=== PATIENT | male | born 1965 | race Caucasian/White ===

== ENCOUNTER 2017-09-14 13:32 | Inpatient (IN) ==
--- NOTE | 2017-09-13 21:18 | Discharge Summary ---
<Alma Pimentel L - Last Filed: 09/13/17 21:15> Date of Encounter: 09/13/17 - Discharge Diagnosis (1) Status post total hip replacement, left Priority: Primary Status: Acute (2) Tobacco use Priority: Secondary Status: Chronic (3) Hyperlipidemia Priority: Secondary Status: Chronic Qualifiers: Hyperlipidemia type: pure hypercholesterolemia Qualified Code(s): E78.00 - Pure hypercholesterolemia, unspecified (4) Avascular necrosis of bones of both hips Priority: Primary Status: Chronic - Discharge Medications Prescriptions: Aluminum Hydroxide 600 mg PO TIDAC 30 Days #450 ml Omeprazole [PriLOSEC] 20 mg PO DAILY #30 cap Sucralfate [Carafate] 1 gm PO BID #30 tablet Sucralfate [Carafate] 10 ml PO QID 30 Days #1 l Home Medications: Gabapentin [Neurontin] 800 mg PO TID 07/15/17 [History] OxyCODONE Immed Rel [Roxicodone 5 MG] 5 mg PO Q6HR PRN #28 tablet 09/13/17 [Rx] Aluminum Hydroxide 600 mg PO TIDAC 30 Days #450 ml 09/18/17 [Rx] Omeprazole [PriLOSEC] 20 mg PO DAILY #30 cap 09/18/17 [Rx] Sucralfate [Carafate] 1 gm PO BID #30 tablet 09/18/17 [Rx] Sucralfate [Carafate] 10 ml PO QID 30 Days #1 l 09/18/17 [Rx] Allergies/Adverse Reactions: 3 Allergy/AdvReac Type Severity Reaction Status Date / Time acetaminophen [From Tylenol] AdvReac Nausea Verified 09/14/17 14:06 naproxen [From Naprosyn] AdvReac Chest Pain Verified 09/14/17 14:06 Primary care physician: PCP NONE - Patient Status Disposition: Transfer SNF Condition: Good - Discharge Instructions Follow Up With: Layla Falk PAC [Physician Vegetable Picker] - 09/25/17 9:45 am Efra Jalloh MD [Partnered Physician] - (PATIENT IS GOING TO [facility] NO PCP NEEDED) Arjun Montes, BRICK SETTER [Advanced Practice Nurse] - 10/05/17 3:05 pm Additional Instructions: Please take all medications as prescribed adhere to soft diet please follow up with your primary care physician with the next one to 2 weeks -- may consider general surgery consultation at recommendation of your primary care physician if your abdominal discomfort does not improve follow-up with gastroenterology within the next 2 to 4 weeks please adhere to physical therapy recommendations including use of walking assistive devices until you're cleared for independent ambulation please report any new recurrent symptoms to your nurse or primary physician please return to the emergency department for further evaluation as needed for symptoms as we have discussed - Hospital Course Hospital course: Mr. Stallings is a 52 year old male - Time Spent with Patient Total time spent providing and/or coordinating discharge services: <Evin Reyez - Last Filed: 09/23/17 08:30> Date of Encounter: 09/23/17 Time of Encounter: 08:29 - Discharge Diagnosis (1) Avascular necrosis of bones of both hips Priority: Primary Status: Chronic (2) Status post total hip replacement, right Priority: Primary Status: Chronic (3) Status post total hip replacement, left Priority: Primary Status: Acute (4) Tobacco use Priority: Secondary Status: Chronic (5) Hyperlipidemia Priority: Secondary Status: Chronic Qualifiers: Hyperlipidemia type: mixed hyperlipidemia Qualified Code(s): E78.2 - Mixed hyperlipidemia (6) Hematemesis with nausea Priority: Primary Status: Acute (7) Alcohol abuse Priority: Secondary Status: Chronic Primary care physician: PCP NONE - Patient Status Overall status at discharge: patient is progressing back to baseline - Hospital Course Hospital course: Mr. Stallings is a 52 year old male status post left total hip replacement Patient with postoperative hematemesis transferred to cardiac care unit undergoing EGD. Patient found to have gastritis hiatal hernia patient received blood on the hospital discharge stable condition patient with a history of alcohol abuse most likely related to his hematemesis.The patient had an uneventful postoperative course. They received antibiotics and physical therapy and were discharged in stable condition. There will follow-up in the office in 2 weeks. - Time Spent with Patient Total time spent providing and/or coordinating discharge services:
[~2017-09-14 13:32] MED LIST: CeFAZolin Premix DUPLEX 2,000 MG/50 ML BAG IVPB SCH
--- NOTE | 2017-09-14 13:48 | Anesthesia Evaluation PreOp ---
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 09/13/17 [Rx] OxyCODONE Immed Rel [Roxicodone 5 MG] 5 mg PO Q6HR PRN #28 tablet 09/13/17 [Rx] 3 Allergy/AdvReac Type Severity Reaction Status Date / Time acetaminophen [From Tylenol] Allergy Nausea Unverified 09/09/17 14:11 naproxen [From Naprosyn] Allergy Chest Pain Unverified 09/09/17 14:11 - Meds/Allergy Pre-op Review Medications Reviewed: Yes Allergies Reviewed: Yes Beta Blockers on Current Med List: No Anesthesia Results - Imaging Additional studies: stress: Impression: Pharmacologic stress ECG is negative for ischemia at level of heart rate achieved. Gated EF = 70%. Medium sized, moderate intensity, fixed inferior perfusion defect. Perfusion is worse on rest imaging and wall motion is normal. These findings are consistent with artifact. Perfusion imaging was negative for ischemia or infarct. Clinical correlation suggested. Anesthesia Exam Height: 73in Weight: 192lbs NPO (# of Hours): 8 - HEENT Pupil (Motor): EOMI Mallampati: II Teeth: Edentulous Oral Opening: Greater than 3 - PROFESSOR OF PHYSICAL EDUCATION LOC: Oriented PROFESSOR OF PHYSICAL EDUCATION Motor: Normal RUE, Normal LUE, Normal RLE, Normal LLE, Normal Face PROFESSOR OF PHYSICAL EDUCATION Sensory: Normal: RUE, LUE, RLE, LLE, Face - Cardiac Rhythm: Regular Murmur: None - Pulmonary Breath Sounds: bilateral Clear Respiratory Effort: Symmetrical Anesthesia Assess/Plan ASA Score: 2 Modified Secor Scale for Level of Consciousness: Cooperative, oriented, and tranquil Anesthetic Plan: General Monitoring Plan: Standard Monitors Recovery Plan: PACU (disucssed GA, agrees to proceed.)
--- NOTE | 2017-09-14 13:51 | History & Physical Report ---
Date of Encounter: 09/14/17 Time of Encounter: 13:50 24 Hour HP Update - Instructions Instructions: If the History and Physical is less than 30 days old and was completed prior to A.M. admission and or procedure and has NOT been updated on calendar day of procedure please complete this update prior to performing procedure. - Update Patient reports changes in Medical Condition: No Changes in examination, assessment, or condition: No Changes in Medication: No Preop tests/diagnostics Reviewed: Yes Surgery Remains Indicated: Yes Consent for Planned Operative Procedure(s) Verified: Yes - Pre-Operative Checklist Preoperative Checklist Indicated: No Prophylactic Antibiotic Ordered: Yes Is VTE Prophylaxis Indicated?: Yes
[2017-09-14] MEDS ORDERED: Albuterol 2.5 MG/3 ML NEBULIZER ONE (13:57)
[2017-09-14] MEDS ORDERED: Lidocaine -MPF 1% 2 ML VIAL ID ONE (14:02)
[2017-09-14] MEDS ORDERED: Albuterol 2.5 MG/3 ML NEBULIZER IH ONE (14:02)
[2017-09-14] MEDS ORDERED: CeFAZolin Syr 2,000MG/20 ML 2,000 MG/20 ML SYRINGE IVPB ONE (14:02)
[2017-09-14] MEDS: Ringers Solution, Lactated 1,000 ML IVC SCH ×2 (14:09→20:14)
[2017-09-14] MEDS ORDERED: Ethanol\\Acetic Acid\\Na Ace\\Ben 1,000 ML IRRIG.SOLN IR ONE (16:45)
[2017-09-14] MEDS ORDERED: *HR* Enoxaparin 30 MG/0.3 ML SYRINGE SQ SCH (18:00)
[2017-09-14] MEDS ORDERED: *HR* Midazolam HCl 2 MG/2 ML VIAL ONE (18:36)
[2017-09-14] MEDS ORDERED: Lidocaine -MPF 4% 5 ML AMPUL ONE (18:36)
[2017-09-14] MEDS ORDERED: *HR* Succinylcholine 200 MG/10 ML VIAL IVP ONE (18:36)
[2017-09-14] MEDS ORDERED: *HR* FentaNYL (PF) 100 MCG/2 ML VIAL ONE ×2 (18:36→18:37)
[2017-09-14] MEDS ORDERED: *HR* Propofol 200 MG/20 ML VIAL IVP ONE (18:36)
[2017-09-14] MEDS ORDERED: Lidocaine -MPF 2% 2 ML VIAL ONE (18:36)
[2017-09-14] MEDS ORDERED: Ondansetron 4 MG/2 ML VIAL IVP PRN ×2 (18:47→21:49)
[2017-09-14] MEDS ORDERED: Propofol 500 MG/50 ML INFUS..BTL ONE (18:53)
[2017-09-14] MEDS ORDERED: Ondansetron 4 MG/2 ML VIAL ONE (18:53)
[2017-09-14] MEDS ORDERED: Dexamethasone 4 MG/ML VIAL ONE (18:53)
[2017-09-14] MEDS ORDERED: *HR* HYDROmorphone 2 MG/ML SYRINGE ONE (18:54)
--- NOTE | 2017-09-14 19:15 | Orthopedic Operative Note ---
Date of procedure: 09/14/17 Pre-op diagnosis: Left hip avascular necrosis Post-op diagnosis: same Procedure: Procedure: Left Total Hip Replacment Estimated blood loss: 400 cc Hardware: Metal and polyethylene replacement. Biomet DM Cup: 60 G7 fin cup Femoral size 14 echo full profile lateralized stem Head: +6 head with Amy Procedural Notes: Degenerative changes grade 4 both acetabulum and femoral head Operative procedure: The patient was brought to the operating room and placed on the operating room table. After general anesthesia was administered the patient was placed in the lateral decubitus position with the operative leg up. All pressure points were padded appropriately and the head was stabilized in the neutral position. The operative extremity was prepped and draped in the sterile surgical fashion patient received IV antibiotic prior to skin incision. A standard posterior approach is made to the operative hip, the incision was made through the skin and subcutaneous tissue hemostasis was obtained with Bovie cautery. Using careful sharp dissection the fascia was identified and incised exposing the external rotators. The external rotators were released off the greater trochanter and tagged with #2 FiberWire suture. The capsule was T'd open and the hip was brought into internal rotation. Patient noted to have grade 4 arthritic changes femoral head. The femoral neck cut was made at the appropriate level. An anterior capsulotomy was performed for the anterior retractor. Soft tissues removed from the acetabulum. Patient noted to have grade 4 arthritic changes acetabulum. Acetabulum was first reamed medially, and then reamed in 15 degrees of anteversion and 45 degrees off the horizontal. It was reamed up to the appropriate size 60 The appropriate-sized 60 acetabular cup was impacted in place in 15 degrees of anteversion and 45 degrees off the horizontal. This had good fit and fixation. The hip was brought back in to internal rotation and prepared with the wooden box maker followed by the canal finder followed by broaching process in 20 degrees anteversion. It was broached up to the appropriate size 14 The femoral implant was impacted in place in 20 degrees of anteversion. Trial reduction found the hip to be stable with 6 head and Amy. The trials were removed and the real implants were impacted in place. The hip was reduced, patient had apparent equal leg lengths. The hip had excellent stability with forward flexion to 90 degrees adduction of 30 degrees and internal rotation of 60 degrees. The hip had no shuck. The hips after 2 minutes with a Betadine saline solution. It was irrigated out with 2 L of pulse irrigation. The hip was closed by the PA. Fascia was closed with a running #2 PDS suture. The deep tissue was irrigated and closed deep with #1 PDS suture superficially with 0 PDS suture and skin was closed with Dermabond and skin abhay. The patient was placed in a sterile dressing and abduction pillow. The patient was extubated and transferred to the recovery room in stable condition. Anesthesia: GETA Surgeon: Evin Reyez Condition: stable Disposition: PACU
[2017-09-14] MEDS: *HR* HYDROmorphone (PF) 1 MG/ML SYRINGE IVP PRN ×5 (19:55→23:33)
[2017-09-14 20:35] LABS: Hematocrit 45.9 % (37.5-50.1); Hemoglobin 15.2 g/dL (12.9-16.9)
[2017-09-14] MEDS ORDERED: Gabapentin 300 MG CAPSULE PO STA (20:42)
[2017-09-14] MEDS ORDERED: cloNIDine HCl 0.1 MG TABLET PO ONE (20:42)
[2017-09-14] MEDS ORDERED: Gabapentin 300 MG CAPSULE ONE (20:49)
[2017-09-14] MEDS ORDERED: cloNIDine HCl 0.1 MG TABLET ONE (20:49)
[2017-09-14] MEDS ORDERED: *HR* OxyCODONE Immed Rel 5 MG TABLET PO PRN (21:49)
[2017-09-14] MEDS ORDERED: Sennosides 8.6 MG TABLET PO PRN (21:49)
[2017-09-14] MEDS ORDERED: Ringers Solution, Lactated 1,000 ML IVC SCH (21:49)
[2017-09-14] MEDS ORDERED: Naloxone 0.4 MG/ML INJ IVP PRN (21:49)
[2017-09-14] MEDS ORDERED: Temazepam 15 MG CAPSULE PO PRN (21:49)
[2017-09-14] MEDS ORDERED: CeFAZolin Premix DUPLEX 2,000 MG/50 ML BAG IVPB SCH (21:49)
--- NOTE | 2017-09-14 22:10 | Anesthesia Evaluation Post Op ---
Date of Encounter: 09/14/17 Time of Encounter: 21:00 - Vital Signs Vital Signs: Vital Signs/O2 Sat/Glucose, Most Current Temp Pulse Resp BP Pulse Ox 09/14/17 21:01 98.2 F 98 14 118/84 92 09/14/17 20:51 86 14 117/81 91 09/14/17 20:41 98 F 89 14 128/85 92 09/14/17 20:31 92 14 121/88 91 09/14/17 20:25 100 14 109/79 91 09/14/17 20:11 98.2 F 101 16 112/90 91 09/14/17 20:01 100 12 111/86 92 09/14/17 19:51 110 18 107/97 95 09/14/17 19:41 98.2 F 97 16 119/84 97 - Lungs Lungs: Clear Ascult./Percussion - Airway Airway: Non-obstructed - Cardiovascular Baseline Rhythm - Mental Status Mental Status: Alert & Oriented, Answers Appropriately - Pain Pain Scale: 7 Pain Scale used: Numeric (1 - 10) - Nausea Vomiting Nausea Vomiting: Not Present - Hydration Hydration: Tolerates oral liquids, Has not voided - Discharge PostOp Status: Transfer Patient to floor Anes Supervising Prov Stmt: Pt seen/evaluated, VSS and pt has met criteria for discharge to home. - MD Jairo
[2017-09-14] MEDS: *HR* OxyCODONE Immed Rel 5 MG TABLET PO PRN (22:31)
[2017-09-14] MEDS: Ascorbic Acid 500 MG TABLET PO SCH (22:35)
[2017-09-14] MEDS: Gabapentin 400 MG CAPSULE PO SCH (22:45)
[2017-09-14] MEDS: MOM Conc 10 ML UD.LIQ PO PRN (22:49)
[2017-09-15] MEDS: CeFAZolin Premix DUPLEX 2,000 MG/50 ML BAG IVPB SCH ×2 (00:37→07:42)
[2017-09-15] MEDS: *HR* HYDROmorphone (PF) 1 MG/ML SYRINGE IVP PRN ×6 (01:33→20:24)
[2017-09-15] MEDS: *HR* OxyCODONE Immed Rel 5 MG TABLET PO PRN ×2 (02:42→06:58)
[2017-09-15] MEDS: Ketorolac 30 MG/ML VIAL IVP SCH ×2 (04:57→12:43)
[2017-09-15] MEDS: *HR* Enoxaparin 30 MG/0.3 ML SYRINGE SQ SCH ×2 (05:01→16:44)
--- NOTE | 2017-09-15 06:37 | Orthopedics Progress Note ---
Date of Encounter: 09/15/17 Time of Encounter: 06:35 - Assessment and Plan (1) Avascular necrosis of bones of both hips Current Visit: No Status: Chronic (2) Status post total hip replacement, right Current Visit: No Status: Chronic (3) Status post total hip replacement, left Current Visit: No Status: Acute (4) Tobacco use Current Visit: No Status: Chronic (5) Hyperlipidemia Current Visit: No Status: Chronic Qualifiers: Hyperlipidemia type: pure hypercholesterolemia Qualified Code(s): E78.00 - Pure hypercholesterolemia, unspecified; E78.0 - Pure hypercholesterolemia Subjective Interval history: Patient was seen this morning and complains of severe pain left leg left hip Afebrile vital signs stable. Operative extremity: Neurovascularly seems to be intact Patient says he cannot move toes but does move them without pain tension. Dressing clean dry and intact Calves nontender Assessment and plan: Continue with postoperative care Will add Ativanas well as the aforementioned Toradol to try to alleviate discomfort Objective Vital signs: Vital Signs Temp Pulse Resp BP Pulse Ox 09/15/17 03:19 97.4 F L 75 18 147/92 92 09/15/17 00:43 98.3 F 88 109/83 93 09/15/17 00:05 97.4 F L 80 17 108/76 92 09/14/17 23:35 98.4 F 81 14 112/78 93 09/14/17 22:41 98.4 F 82 14 124/88 96 09/14/17 22:15 98.3 F 126 14 126/87 96 09/14/17 21:36 92 09/14/17 21:33 98.4 F 82 14 114/84 92 09/14/17 21:01 98.2 F 98 14 118/84 92 09/14/17 20:51 86 14 117/81 91 09/14/17 20:41 98 F 89 14 128/85 92 09/14/17 20:31 92 14 121/88 91 09/14/17 20:25 100 14 109/79 91 09/14/17 20:11 98.2 F 101 16 112/90 91 09/14/17 20:01 100 12 111/86 92 09/14/17 19:51 110 18 107/97 95 09/14/17 19:41 98.2 F 97 16 119/84 97 09/14/17 14:04 97.5 F L 102 18 130/90 96 Intake and Output 09/14/17 09/14/17 09/15/17 15:59 23:59 07:59 Intake Total 1999 / 1999 50 / 50 Output Total 400 / 400 Balance 1600 / 1600 50 / 50 Intake: IV Fluids 1000 / 1000 50 / 50 Lactated Ringers 1,000 ML @ 25 1000 / 1000 mls/hr IVC .Q24H [facility] Rx#: [id number] Ancef Premix DUPLEX 2,000 mg In 50 / 50 50 ml @ 100 mls/hr IVPB Q8H [facility] Rx#:[id number] Oral 1000 / 1000 Output: Estimated Blood Loss 400 / 400 Other: Weight 81.647 kg - Labs CBC & BMP: 09/14/17 20:28 - VTE Documentation of Mechanical Device: Venous foot pump, device Consult Discharge Plan - Plan Referrals: NONE,PCP [Primary Care Provider] -
[2017-09-15] MEDS: *HR* LORazepam 2 MG/ML VIAL IVP PRN ×2 (06:51→21:21)
[2017-09-15 07:38] LABS: Hematocrit 40.1 % (37.5-50.1)
[2017-09-15] MEDS: Ascorbic Acid 500 MG TABLET PO SCH ×3 (07:43→16:49)
[2017-09-15] MEDS: Multivit/Ca/Min/Fe/FA 1 TAB TABLET PO SCH (07:43)
[2017-09-15] MEDS: Gabapentin 400 MG CAPSULE PO SCH ×4 (07:43→20:12)
[2017-09-15 07:45] LABS: Hemoglobin 13.4 g/dL (12.9-16.9)
[2017-09-15 07:48] LABS: BUN/Creatinine Ratio 13 (6-26); Blood Urea Nitrogen 10 mg/dL (8-26); Calcium 8.8 mg/dL (8.6-10.8); Carbon Dioxide 21 mEq/L (19-29); Chloride 93 mEq/L (98-109); Glucose 166 mg/dL (70-99); Osmolality,Calculated 267 (280-300); Potassium 3.9 mEq/L (3.5-4.5); Sodium 127 mEq/L (136-145); eGFR For African Americans > 60 (> 60); eGFR For Non-African Americans > 60 (> 60)
[2017-09-15] MEDS: *HR* Promethazine 25 MG/ML VIAL IVP PRN ×2 (11:09→17:46)
--- NOTE | 2017-09-15 11:37 | Physician Discharge Referral ---
ExtendedCare Referral Info Transfer To: [facility] Provider in Charge: Provider in Charge after Transfer: PCP Institutional Level of Care: Skilled - Diagnosis (1) Avascular necrosis of bones of both hips Priority: Primary Status: Chronic (2) Status post total hip replacement, left Priority: Primary Status: Acute (3) Tobacco use Priority: Secondary Status: Chronic (4) Hyperlipidemia Priority: Secondary Status: Chronic Expected Duration of Placement: < 30 days Prognosis: Good Aware of Diagnosis: Patient Aware of Prognosis: Patient - Transfer Medications Home Medications: Gabapentin [Neurontin] 800 mg PO TID 07/15/17 [History] Aspirin Enteric Coated [Aspirin EC] 325 mg PO DAILY #21 tablet. 09/13/17 [Rx] OxyCODONE Immed Rel [Roxicodone 5 MG] 5 mg PO Q6HR PRN #28 tablet 09/13/17 [Rx] Allergies/Adverse Reactions: 3 Allergy/AdvReac Type Severity Reaction Status Date / Time acetaminophen [From Tylenol] AdvReac Nausea Verified 09/14/17 14:06 naproxen [From Naprosyn] AdvReac Chest Pain Verified 09/14/17 14:06 - Respiratory Orders None Smoking Cessation: Smoking cessation has been advised. For more information, call the [employer] Tobacco Quit Line at 5-170-SDXJ-NOW. - Ancillary Orders May use pressure relief devices daily prn, May go on FIONA w/family/respon constitution party w /meds at nurse discretion PRN - Mobility Orders Chair, Ambulate - Rehabiliation Orders Rehab Potential: Good Rehab Orders: ROM Exercises, Evaluation for Physical Therapy, Evaluation for Occupational Therapy - Treatments List/Other: LEft THR Opsite dressing, leave intact until first post-operative visit. If dressing becomes >50% saturated, contact office, remove dressing and place appropriate dressing in its place. Do not allow for dressing to get wet. Zipline dressing in place, plan to remove at post-operative day #14-16. Total Joint Precautions x 6 weeks - Hip precautions Apply cold therapy wrap 3-6x/day for 20 minutes at a time. Encourage ambulation throughout the day Use Incentive spirometer 10x/hour. Elevate affected extremity above heart as tolerated. Brace: Wear hip abduction brace at night x 6 weeks. - Diet Orders Regular CERTIFICATION: I certify that the transfer of the above named patient to an Extended Care Facility is necessary for the continuing treatment of the diagnosis listed. The above information is true and accurate reflection of patient's current condition. Confidential - Redisclosure prohibited without a patient's written consent.
[2017-09-15] MEDS ORDERED: Bismuth Subsalicylate 120 ML ORAL SUSPENSION PO ONE (15:36)
[2017-09-15] MEDS ORDERED: Bismuth Subsalicylate 120 ML ORAL SUSPENSION PO PRN (15:48)
--- NOTE | 2017-09-15 16:01 | Event Note ---
Date of Encounter: 09/15/17 Time of Encounter: 13:15 POD#.1 Left THR 09/15/17 : Patient seen at bedside. Sleeping Pain control: per report - not controlled this morning - on Toradol, Flexeril - Added Lidoderm patch Refusing to participate in PT due to pain. Complains of inability to move Left Foot; he had similar complaints after Right THR 07/2017, with resolution of problem POD#2 - Will continue to monitor. NV intact All questions and concerns addressed. Educated on use of incentive spirometer, ambulation, and hydration. Patient educated on post-operative restrictions and care. D/C plan: ECF, continuity placed. 1545 - Nurse reported 300mL dark brown emesis, patient denied ABD pain or history of GI bleed. D/C Toradol Start Pepto Bismuth PRN Start Famotidine 20mg daily Will monitor, consult hospitalist if this continues.
--- NOTE | 2017-09-15 18:57 | Internal Medicine Consult Note ---
Date of Encounter: 09/15/17 Time of Encounter: 17:45 - Assessment and Plan (1) Hematemesis with nausea Current Visit: Yes Status: Acute Assessment and plan: Pt denies history of previous GI bleed. Start PPI. Check H/H. NPO. (2) Tobacco use Current Visit: No Status: Chronic Assessment and plan: Cessation counselling. (3) Hyperlipidemia Current Visit: No Status: Chronic Qualifiers: Hyperlipidemia type: mixed hyperlipidemia Qualified Code(s): E78.2 - Mixed hyperlipidemia (4) Avascular necrosis of bones of both hips Current Visit: No Status: Chronic (5) Status post total hip replacement, right Current Visit: No Status: Chronic (6) Status post total hip replacement, left Current Visit: No Status: Acute Internal Medicine - CN: HPI - Data of Consult Patient: new to practice Consult date: 09/15/17 Requesting Physician: Evin Reyez MD - Consult Narrative Reason for consult: UGI bleed History of present illness: Mr. Stallings is a 52 year old male here for total joint replacement developed acute nausea with coffee ground emesis this afternoon. Pt denies history of previous GI bleed. Denies alcohol use. Currently has pain in his upper abdomen behind sternum. No fever or chills. Has been on Toradol and Lovenox since surgery. He has had significant nausea as well and just received phenergan. He is high risk at this time due to risk for significant GI bleeding. Past Med Surg Social Fam HX - Past Medical History Source: patient, old records reviewed Medical history: other Psychiatric history: prior suicide attempt - Past Surgical History Surgical History: orthopedic, other, sinus surgery, other - Social History Smoking Status: Current every day smoker Packs per day: 1 1/2 Smokeless Tobacco Status: No Alcohol use: occasionally Drug use: none - Family History Mother Living Status: Still Living - Constitutional Constitutional: fatigue, malaise - Cardiovascular Cardiovascular ROS IM: other Additional comments: tachycardic - Respiratory Respiratory: no dyspnea, no dyspnea on exertion - Gastrointestinal Gastrointestinal: abdominal pain, coffee ground emesis, heartburn, no diarrhea, no melena - Genitourinary Genitourinary ROS male: no dysuria, no urinary frequency, no urinary hesitancy - Musculoskeletal Musculoskeletal ROS IM: arthralgias - Integumentary Integumentary IM: no erythema, no rash - Neurological Neurological ROS: no abnormal gait, no numbness, no vertigo - Endocrine Endocrine IM: no cold intolerance, no heat intolerance - Hematologic/Lymphatic Hematologic/Lymphatic: as per HPI - Allergic/Immunologic Allergic/Immunologic: no itchy eyes, no wheezing Internal Medicine - CN: Meds Gabapentin [Neurontin] 800 mg PO TID 07/15/17 [History] Aspirin Enteric Coated [Aspirin EC] 325 mg PO DAILY #21 tablet. 09/13/17 [Rx] OxyCODONE Immed Rel [Roxicodone 5 MG] 5 mg PO Q6HR PRN #28 tablet 09/13/17 [Rx] 3 Allergy/AdvReac Type Severity Reaction Status Date / Time acetaminophen [From Tylenol] AdvReac Nausea Verified 09/14/17 14:06 naproxen [From Naprosyn] AdvReac Chest Pain Verified 09/14/17 14:06 Internal Medicine - CN: Exam - Constitutional Vitals: Temp Pulse Resp BP Pulse Ox 100.2 F H 120 16 123/87 95 09/15/17 18:00 09/15/17 18:00 09/15/17 18:00 09/15/17 18:00 09/15/17 18:00 General appearance IM: Present: cooperative, A&O X 3 - Head Head exam: Present: atraumatic, normocephalic - Eye Eye exam: Present: EOMI, PERRL, conjuntiva pink - ENT ENT exam: Present: mucous membranes dry - Neck Neck exam general surgery: Absent: lymphadenopathy, thyromegaly - Respiratory Respiratory exam: Present: CTAB. Absent: rhonchi, wheezes - Cardiovascular Cardiovascular exam IM: Present: tachycardia. Absent: irregular rhythm, systolic murmur - GI/Abdominal GI/Abdominal exam IM: Present: normal bowel sounds, soft, tenderness - Extremities Exam Extremities exam IM: Present: tenderness, warm - Neurological Exam Neurological exam: Present: alert, oriented X3, no focal deficits - Psychiatric Psychiatric exam: Present: flat affect - Skin Skin exam IM: Present: dry, warm. Absent: rash Internal Medicine - CN: Reslt - Labs CBC & Chem 7: 09/15/17 06:48 09/15/17 06:48 Labs: Short CBC 09/14/17 09/15/17 Range/Units 20:28 06:48 Hgb 15.2 13.4 D (12.9-16.9) g/dL Hct 45.9 40.1 (37.5-50.1) % BMP 09/15/17 06:48 Sodium 127 L Potassium 3.9 Chloride 93 L Carbon Dioxide 21 BUN 10 Creatinine 0.77 Glucose 166 H Calcium 8.8 - Impressions Impressions Hip X-Ray 09/14/17 00:01 IMPRESSION: Expected postsurgical changes of total left hip arthroplasty. No evidence of hardware complication. D/ / Trey Martin / Trey Martin Interpreting Provider: Trey Martin Consult Discharge Plan - Plan Referrals: NONE,PCP [Primary Care Provider] -
[2017-09-15 20:09] LABS: Hematocrit 32.2 % (37.5-50.1)
[2017-09-15] MEDS: 0.9 % Sodium Chloride 1,000 ML IVC SCH (20:09)
[2017-09-15] MEDS: Famotidine 20 MG TABLET PO SCH (20:12)
[2017-09-15 20:14] LABS: Hemoglobin 10.9 g/dL (12.9-16.9)
[2017-09-15] MEDS: Pantoprazole 80 MG in 0.9 % Sodium Chloride 250 ML IVC SCH (20:30)
[2017-09-16] MEDS: MOM Conc 10 ML UD.LIQ PO PRN (02:00)
[2017-09-16] MEDS: *HR* Promethazine 25 MG/ML VIAL IVP PRN (02:00)
[2017-09-16] MEDS: *HR* HYDROmorphone (PF) 1 MG/ML SYRINGE IVP PRN ×3 (06:08→19:48)
[2017-09-16 06:24] LABS: Hematocrit 28.2 % (37.5-50.1); Hemoglobin 9.6 g/dL (12.9-16.9)
[2017-09-16 06:33] LABS: BUN/Creatinine Ratio 21 (6-26); Blood Urea Nitrogen 16 mg/dL (8-26); Calcium 8.1 mg/dL (8.6-10.8); Carbon Dioxide 26 mEq/L (19-29); Chloride 98 mEq/L (98-109); Glucose 100 mg/dL (70-99); Osmolality,Calculated 269 (280-300); Potassium 3.9 mEq/L (3.5-4.5); Sodium 129 mEq/L (136-145); eGFR For African Americans > 60 (> 60); eGFR For Non-African Americans > 60 (> 60)
--- NOTE | 2017-09-16 07:59 | Orthopedics Progress Note ---
Date of Encounter: 09/16/17 Time of Encounter: 07:58 - Assessment and Plan (1) Avascular necrosis of bones of both hips Current Visit: No Status: Chronic (2) Status post total hip replacement, right Current Visit: No Status: Chronic (3) Status post total hip replacement, left Current Visit: No Status: Acute (4) Tobacco use Current Visit: No Status: Chronic (5) Hyperlipidemia Current Visit: No Status: Chronic Qualifiers: Hyperlipidemia type: mixed hyperlipidemia Qualified Code(s): E78.2 - Mixed hyperlipidemia (6) Hematemesis with nausea Current Visit: Yes Status: Acute Subjective Interval history: Patient was seen this morning resting comfortably Afebrile vital signs stable. Operative extremity: Neurovascularly Dressing clean dry and intact Calves nontender Assessment and plan: Continue with postoperative care in CCU for hematemesis, awaiting EGD hemoglobin 9.5 Objective Vital signs: Vital Signs Temp Pulse Resp BP Pulse Ox 09/16/17 06:56 99.0 F 115 18 101/63 93 09/16/17 05:05 98.3 F 09/16/17 03:19 100.4 F H 118 19 113/68 90 09/15/17 23:46 99.5 F 111 16 112/69 91 09/15/17 21:25 98.8 F 112 16 110/91 90 09/15/17 20:26 115/77 09/15/17 19:12 98.4 F 121 19 98/70 94 09/15/17 18:00 100.2 F H 120 16 123/87 95 09/15/17 13:50 99.7 F H 105 16 108/75 92 Intake and Output 09/15/17 09/15/17 09/16/17 15:59 23:59 07:59 Intake Total 100 / 100 Output Total 300 / 300 970 / 970 1330 / 1330 Balance -300 / -300 -870 / -870 -1330 / -1330 Intake: Oral 100 / 100 Output: Urine 520 / 520 1330 / 1330 Emesis 300 / 300 450 / 450 Other: # Voids 1 Weight 82.3 kg Patient Weight 09/16/17 23:59 Weight 82.3 kg - Labs CBC & BMP: 09/16/17 06:06 09/16/17 06:06 Labs: Abnormal lab results Hgb 9.6 g/dL (12.9-16.9) L 09/16/17 06:06 Hct 28.2 % (37.5-50.1) L 09/16/17 06:06 Sodium 129 mEq/L (136-145) L 09/16/17 06:06 Glucose 100 mg/dL (70-99) H 09/16/17 06:06 Calculated Osmolality 269 (280-300) L 09/16/17 06:06 Calcium 8.1 mg/dL (8.6-10.8) L 09/16/17 06:06 - VTE Documentation of Mechanical Device: Venous foot pump, device Consult Discharge Plan - Plan Referrals: NONE,PCP [Primary Care Provider] -
[2017-09-16] MEDS ORDERED: *HR* LORazepam 2 MG/ML VIAL IVP PRN ×3 (08:15)
[2017-09-16] MEDS: Gabapentin 400 MG CAPSULE PO SCH ×3 (08:35→19:48)
[2017-09-16] MEDS: Ascorbic Acid 500 MG TABLET PO SCH ×2 (08:35→17:08)
[2017-09-16] MEDS: Multivit/Ca/Min/Fe/FA 1 TAB TABLET PO SCH (08:36)
[2017-09-16] MEDS: Famotidine 20 MG TABLET PO SCH (08:36)
--- NOTE | 2017-09-16 10:52 | Gastroenterology Consult Note ---
<JyotiArjun Mccarthy - Last Filed: 09/16/17 10:50> Date of Encounter: 09/16/17 Time of Encounter: 10:20 - Assessment and plan (1) Anemia Current Visit: Yes Status: Acute Assessment and plan: Hgb on admission was 15.2 and today Hgb 9.6. Continue to monitor CBC and transfuse PRBC as needed. Plan for EGD today, keep pt NPO. Qualifiers: Anemia type: unspecified type Qualified Code(s): D64.9 - Anemia, unspecified (2) Hematemesis with nausea Current Visit: Yes Status: Acute Assessment and plan: Hgb 9.6 today. Plan for EGD today to r/o esophagitis, gastritis, duodenitis, PUD , MW tear, varices, or AVM. Keep pt NPO. Continue PPI drip for now. - Time Spent With Patient Total time spent is greater than 50% in coordination of care (as documented) at patient's floor/unit and/or counseling patient: GI History of Present Illness - Data of Consult Patient: new to practice Consult date: 09/16/17 Requesting Physician: Leland Friedman MD - Consult Narrative History of present illness: Mr. Stallings is a 52 year old male who presented for total joint replacement. Following surgery he developed nausea and coffee ground emesis. He denies any history of GI bleeding. Hgb on admission was 15.2 and today Hgb 9.6. He reports occasional reflux symptoms, and states he uses baking soda and water to control his symptoms. He denies any alcohol use. He denies fever, chills, chest pain, abdominal pain, melena, or hematochezia. He was started on PPI drip. Procedures: None NSAIDs: ASA Anticoagulation: None Past Med Surg Social Fam HX - Past Medical History Medical history: other Psychiatric history: prior suicide attempt - Past Surgical History Surgical History: orthopedic, other, sinus surgery, other - Social History Smoking Status: Current every day smoker Packs per day: 1 1/2 Smokeless Tobacco Status: No Alcohol use: occasionally Drug use: none - Family History Mother Living Status: Still Living - Gastrointestinal Gastrointestinal: Present: as per HPI - Constitutional Constitutional: as per HPI - EENT Eyes: as per HPI Ears: Present: as per HPI Nose, mouth and throat: Present: as per HPI - Cardiovascular Cardiovascular ROS: Present: as per HPI - Respiratory Respiratory IM: Present: as per HPI - Genitourinary Genitourinary: Absent: change in color, Urinary frequency - Neurological ROS Neurological GI: Present: as per HPI - Hematologic/Lymphatic Hematologic/Lymphatic pediatric: Present: as per HPI - Musculoskeletal Musculoskeletal ROS GI: Present: as per HPI - Integumentary Integumentary GI: Present: as per HPI - Psychiatric ROS Psychiatric GI: Present: as per HPI - Endocrine Endocrine IM: Present: as per HPI - Constitutional Vitals: Temp Pulse Resp BP Pulse Ox 99.0 F 111 18 101/63 93 09/16/17 06:56 09/16/17 08:12 09/16/17 06:56 09/16/17 06:56 09/16/17 06:56 General appearance: Present: cooperative, A&O X 3, no acute distress, answers questions appropriately - Head Head exam: Present: atraumatic, normocephalic - Eye Eye exam: Present: normal appearance, sclera anicteric - ENT ENT exam: Present: mucous membranes dry - Neck Neck exam general surgery: Present: normal inspection, trachea midline - Respiratory Respiratory exam: Present: CTAB. Absent: rales, rhonchi - Cardiovascular Cardiovascular exam: Present: RRR, +S1, +S2 - GI/Abdominal GI/Abdominal exam: Present: soft, no peritoneal signs. Absent: distended, firm , guarding, tenderness - Rectal Rectal exam: Present: deferred - Extremities Exam Extremities exam: Present: warm - Neurological Exam Neurological exam: Present: no focal deficits - Psychiatric Psychiatric exam: Present: normal affect, normal mood - Skin Skin exam: Present: dry, intact, normal color, warm Results - Labs CBC & Chem 7: 09/16/17 06:06 09/16/17 06:06 Labs: Last Result Calcium 8.1 mg/dL (8.6-10.8) L 09/16/17 06:06 Entire Visit Hgb 9.6 g/dL (12.9-16.9) L 09/16/17 06:06 Hct 28.2 % (37.5-50.1) L 09/16/17 06:06 Consult Discharge Plan - Plan Referrals: Layla Falk, PAC [Physician Senior Manager [facility]] - 09/25/17 9:45 am Efra Jalloh MD [Partnered Physician] - (PATIENT IS GOING TO [facility] NO PCP NEEDED) Audi Tafoya MD [Partnered Physician] - (SENT WEB REQUEST ON 09-16-17 @ 1700 ) <Audi Tafoya - Last Filed: 09/16/17 14:08> Date of Encounter: 09/16/17 Time of Encounter: 13:20 - Time Spent With Patient Total time spent is greater than 50% in coordination of care (as documented) at patient's floor/unit and/or counseling patient: GI History of Present Illness - Data of Consult Requesting Physician: Leland Friedman MD - Consult Narrative History of present illness: Mr. Stallings is a 52 year old male - Constitutional Vitals: Temp Pulse Resp BP Pulse Ox 100.1 F H 106 18 102/56 93 09/16/17 12:49 09/16/17 12:49 09/16/17 12:49 09/16/17 12:49 09/16/17 12:49 Results - Labs CBC & Chem 7: 09/16/17 06:06 09/16/17 06:06 Labs: Last Result Calcium 8.1 mg/dL (8.6-10.8) L 09/16/17 06:06 Entire Visit Hgb 9.6 g/dL (12.9-16.9) L 09/16/17 06:06 Hct 28.2 % (37.5-50.1) L 09/16/17 06:06 - Attending Attestation I examined this patient and my medical decision-making was reviewed with the Resident Physician. I agree with the documented findings, disposition and treatment plan as described except to the extent set forth below. Patient with a recent left hip surgery now with hematemesis and the anemia. EGD to rule out peptic ulcer disease versus esophagitis/gastritis. Follow H&H
--- NOTE | 2017-09-16 12:31 | Event Note ---
Date of Encounter: 09/16/17 Time of Encounter: 12:55 POD#2 Left THR 09/15/17 Patient NOT seen secondary to patient away for testing. Pain control: NSAIDs d/c secondary to presumptive GI bleed - consult performed - awaiting EGD results.
--- NOTE | 2017-09-16 12:55 | Anesthesia Evaluation PreOp ---
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 09/13/17 [Rx] OxyCODONE Immed Rel [Roxicodone 5 MG] 5 mg PO Q6HR PRN #28 tablet 09/13/17 [Rx] 3 Allergy/AdvReac Type Severity Reaction Status Date / Time acetaminophen [From Tylenol] AdvReac Nausea Verified 09/14/17 14:06 naproxen [From Naprosyn] AdvReac Chest Pain Verified 09/14/17 14:06 - Meds/Allergy Pre-op Review Medications Reviewed: Yes Allergies Reviewed: Yes Beta Blockers on Current Med List: No Anesthesia Results - Labs 09/16/17 06:06 09/16/17 06:06 - Imaging EKG: report reviewed (SR) Anesthesia Exam O2 Sat Weight 82.3 kg O2 Sat by Pulse Oximetry 93 O2 Sat by Pulse Oximetry 93 O2 Sat by Pulse Oximetry 93 O2 Sat by Pulse Oximetry 93 O2 Sat by Pulse Oximetry 90 O2 Sat by Pulse Oximetry 91 O2 Sat by Pulse Oximetry 90 O2 Sat by Pulse Oximetry 94 O2 Sat by Pulse Oximetry 95 O2 Sat by Pulse Oximetry 92 Vital Signs Temp Pulse Resp BP Pulse Ox 97.5 F L 102 18 130/90 96 09/14/17 14:04 09/14/17 14:04 09/14/17 14:04 09/14/17 14:04 09/14/17 14:04 Vital Signs/O2 Sat, Most Current Temp Pulse Resp BP Pulse Ox 100.1 F H 106 18 102/56 93 09/16/17 12:49 09/16/17 12:49 09/16/17 12:49 09/16/17 12:49 09/16/17 12:49 Height: 6'1'' Weight: 181# NPO (# of Hours): > 8 hrs Pain Scale: 0 Pain Scale Used: Numeric (1 - 10) - HEENT Pupil (Motor): Pupils equal, EOMI Mallampati: II Teeth: Edentulous Oral Opening: Greater than 3 - RECRUIT INSTRUCTOR LOC: Oriented RECRUIT INSTRUCTOR Motor: Normal RUE, Normal LUE, Normal RLE, Normal LLE, Normal Face RECRUIT INSTRUCTOR Sensory: Normal: RUE, LUE, RLE, LLE, Face - Cardiac Rhythm: Regular Murmur: None JVD: No Carotid Bruit: No - Pulmonary Breath Sounds: bilateral Clear Respiratory Effort: Symmetrical Anesthesia Assess/Plan ASA Score: 3
[2017-09-16] MEDS ORDERED: 0.9 % Sodium Chloride 500 ML IVC SCH (14:00)
[2017-09-16] MEDS ORDERED: Ringers Solution, Lactated 500 ML IVC SCH (14:00)
[2017-09-16] MEDS: 0.9 % Sodium Chloride 1,000 ML IVC SCH ×3 (14:39→22:00)
[2017-09-16 15:19] LABS: Hematocrit 24.4 % (37.5-50.1); Hemoglobin 8.1 g/dL (12.9-16.9)
--- NOTE | 2017-09-16 15:52 | Electrocardiograph Report ---
[address] [address] Test Date: 2017-09-15 Pat Name: Jaren Stallings Department: 114 Room: 2N01 Gender: M Outreach Analyst: : 1965 Requested By: Leland Friedman Order Number: [id number] Reading MD: Diaz Harmon MD Measurements Intervals [place] Rate: 121 P: 17 ID: [id number] QRS: 15 QRSD: 91 T: 43 QT: 302 QTc: 374 Interpretive Statements SINUS TACHYCARDIA WITH SHORT ID INTERVAL Electronically Signed On 09-16-2017 15:50:29 EST by Diaz Harmon MD
[2017-09-16] MEDS ORDERED: Lidocaine -MPF 2% 5 ML VIAL INFILT ONE (16:19)
[2017-09-16] MEDS ORDERED: *HR* Propofol 200 MG/20 ML VIAL IVP ONE (16:19)
--- NOTE | 2017-09-16 16:53 | Internal Med Progress Note ---
<Brian Arteaga - Last Filed: 09/16/17 17:27> Date of Encounter: 09/16/17 Time of Encounter: 10:30 - Assessment and plan (1) Status post total hip replacement, left Current Visit: No Status: Acute Assessment and plan: Ortho following patient; will contact ortho team if pertinent concerns arise Cont follow with ortho; defer relevant management to their service (2) Hematemesis with nausea Current Visit: Yes Status: Acute Assessment and plan: GI consulted; EGD performed today Apparently 2/2 esophagitis; await report and recommendations cont follow with GI during IP course Trend H/H and follow up with transfusion if needed On PPI drip; may add carafate (3) Anemia Current Visit: Yes Status: Acute Assessment and plan: Acute blood loss likely UGI bleed Follow H/H q6h Transfuse as needed; patient has been typed Qualifiers: Anemia type: unspecified type Qualified Code(s): D64.9 - Anemia, unspecified (4) Alcohol abuse Current Visit: Yes Status: Chronic Assessment and plan: Cont CIWA protocol (5) DVT prophylaxis Current Visit: Yes Status: Acute Assessment and plan: ICDs for now; defer heparin due to concern of UGI bleed - Time Spent With Patient less than 15 minutes - Subjective Interval history: Patient is alert and conversational at bedside. Does not have any acute complaints. Does admit history of indigestion symptoms. Discussed alcohol intake and patient states drinks once monthly at most. Patient has not had any episodes of emesis since prior. - Constitutional Vitals: Temp Pulse Resp BP Pulse Ox 99.4 F 104 21 98/55 93 09/16/17 15:47 09/16/17 15:47 09/16/17 15:47 09/16/17 15:47 09/16/17 15:47 General appearance: Present: cooperative, A&O X 3 - Head Head exam: Present: atraumatic, normocephalic - Eye Eye exam: Present: PERRL, conjuntiva pink, sclera anicteric - Neck Neck exam general surgery: Present: supple, trachea midline - Respiratory Respiratory exam: Present: CTAB. Absent: accessory muscle use, rales, respiratory distress, rhonchi, stridor, wheezes, tachypnea - Cardiovascular Cardiovascular exam: Present: RRR, +S1, +S2. Absent: diastolic murmur, gallop, rubs, systolic murmur - GI/Abdominal GI/Abdominal exam: Present: normal bowel sounds, soft, no peritoneal signs. Absent: diminished bowel sounds, distended, firm, guarding, rebound, rigid, tenderness - Extremities Exam Extremities exam: Present: warm, radial pulses palpable and symmetrical. Absent : calf tenderness, cyanotic, mottling, pedal edema - Neurological Exam Neurological exam: Present: oriented X3, no focal deficits. Absent: facial droop, speech deficit - Skin Skin exam: Present: dry, intact, normal color. Absent: mottled, pallor Internal Medicine: Result - Labs CBC & Chem 7: 09/16/17 15:02 09/16/17 06:06 Labs: Short CBC 09/15/17 09/16/17 09/16/17 Range/Units 19:57 06:06 15:02 Hgb 10.9 L D 9.6 L 8.1 L D (12.9-16.9) g/dL Hct 32.2 L 28.2 L 24.4 L (37.5-50.1) % BMP 09/16/17 06:06 Sodium 129 L Potassium 3.9 Chloride 98 Carbon Dioxide 26 BUN 16 Creatinine 0.75 Glucose 100 H Calcium 8.1 L Laboratory Last Values Hgb 8.1 g/dL (12.9-16.9) L D 09/16/17 15:02 Hct 24.4 % (37.5-50.1) L 09/16/17 15:02 Sodium 129 mEq/L (136-145) L 09/16/17 06:06 Potassium 3.9 mEq/L (3.5-4.5) 09/16/17 06:06 Chloride 98 mEq/L (98-109) 09/16/17 06:06 Carbon Dioxide 26 mEq/L (19-29) 09/16/17 06:06 BUN 16 mg/dL (8-26) 09/16/17 06:06 Creatinine 0.75 mg/dL (0.72-1.25) 09/16/17 06:06 Est GFR ( Amer) > 60 (> 60) 09/16/17 06:06 Est GFR (Non-Af Amer) > 60 (> 60) 09/16/17 06:06 BUN/Creatinine Ratio 21 (6-26) 09/16/17 06:06 Glucose 100 mg/dL (70-99) H 09/16/17 06:06 Calculated Osmolality 269 (280-300) L 09/16/17 06:06 Calcium 8.1 mg/dL (8.6-10.8) L 09/16/17 06:06 Blood Type A POSITIVE 09/15/17 19:57 Antibody Screen NEGATIVE 09/15/17 19:57 Crossmatch See Detail 09/15/17 19:57 - VTE Documentation of Mechanical Device: Intermittent pneumatic compression device Consult Discharge Plan - Plan Referrals: Layla Falk PAC [Physician Leadership Program Associate] - 09/25/17 9:45 am Efra Jalloh MD [Partnered Physician] - (PATIENT IS GOING TO [facility] NO PCP NEEDED) Audi Tafoya MD [Partnered Physician] - (SENT WEB REQUEST ON 09-16-17 @ 0754 ) <Leland Friedman - Last Filed: 09/16/17 17:51> Date of Encounter: 09/16/17 - Constitutional Vitals: Temp Pulse Resp BP Pulse Ox 99.4 F 104 21 98/55 93 09/16/17 15:47 09/16/17 15:47 09/16/17 15:47 09/16/17 15:47 09/16/17 15:47 Internal Medicine: Result - Labs CBC & Chem 7: 09/16/17 15:02 09/16/17 06:06 Labs: Short CBC 09/15/17 09/16/17 09/16/17 Range/Units 19:57 06:06 15:02 Hgb 10.9 L D 9.6 L 8.1 L D (12.9-16.9) g/dL Hct 32.2 L 28.2 L 24.4 L (37.5-50.1) % BMP 09/16/17 06:06 Sodium 129 L Potassium 3.9 Chloride 98 Carbon Dioxide 26 BUN 16 Creatinine 0.75 Glucose 100 H Calcium 8.1 L - Attending Attestation I conducted a face to face diagnostic evaluation of this patient and my medical decision-making was reviewed with the Resident Physician, Dr. Philip Garcia. I agree with the documented findings, disposition and treatment plan as described except to the extent set forth below: On exam patient is no acute distress. Abdomen is soft, nontender. Hemoglobin dropped from 15-9 postop. Plan I discussed the case with GI. He will have an EGD today. We will continue with H&H every 6 hours. Nothing by mouth. Protonix drip.
[2017-09-16] MEDS: Pantoprazole 80 MG in 0.9 % Sodium Chloride 250 ML IVC SCH (18:37)
[2017-09-16 20:54] LABS: Hemoglobin 7.4 g/dL (12.9-16.9)
[2017-09-17 03:53] LABS: Hematocrit 20.6 % (37.5-50.1); Hemoglobin 6.8 g/dL (12.9-16.9)
--- NOTE | 2017-09-17 06:52 | Orthopedics Progress Note ---
Date of Encounter: 09/17/17 Time of Encounter: 06:51 - Assessment and Plan (1) Avascular necrosis of bones of both hips Current Visit: No Status: Chronic (2) Status post total hip replacement, right Current Visit: No Status: Chronic (3) Status post total hip replacement, left Current Visit: No Status: Acute (4) Tobacco use Current Visit: No Status: Chronic (5) Hyperlipidemia Current Visit: No Status: Chronic Qualifiers: Hyperlipidemia type: mixed hyperlipidemia Qualified Code(s): E78.2 - Mixed hyperlipidemia (6) Hematemesis with nausea Current Visit: Yes Status: Acute (7) Alcohol abuse Current Visit: Yes Status: Chronic Subjective Interval history: Patient was seen this morning resting comfortably Afebrile vital signs stable. Operative extremity: Neurovascularly Dressing clean dry and intact Calves nontender Assessment and plan: Continue with postoperative care in CCU for hematemesis, EGD showed esophagitis with hiatal hernia hematocrit 20 recommend transfusion 2 units also patient is stable to be transported to orthopedic floor if cleared by medicine Objective Vital signs: Vital Signs Temp Pulse Resp BP Pulse Ox 09/17/17 05:33 100/67 09/17/17 04:25 90/51 09/17/17 04:20 98.2 F 97 16 89/48 92 09/17/17 03:08 102 09/17/17 00:22 98.6 F 94 16 98/57 94 09/16/17 19:30 98.1 F 109 17 101/49 91 09/16/17 15:47 99.4 F 104 21 98/55 93 09/16/17 12:49 100.1 F H 106 18 102/56 93 09/16/17 12:36 100.1 F H 106 18 102/56 93 09/16/17 11:24 98.7 F 111 22 98/65 93 09/16/17 08:12 111 09/16/17 06:56 99.0 F 115 18 101/63 93 Intake and Output 09/16/17 09/16/17 09/17/17 15:59 23:59 07:59 Intake Total 1350 / 1350 940 / 940 650 / 650 Output Total 1000 / 1000 1575 / 1575 Balance 1350 / 1350 -60 / -60 -925 / -925 Intake: IV Fluids 1350 / 1350 150 / 150 600 / 600 0.9 % Sodium Chloride 1,000 ML 1350 / 1350 150 / 150 600 / 600 @ 125 mls/hr IVC .Q8H ABRAN Rx#: [id number] Oral 790 / 790 50 / 50 Output: Urine 1000 / 1000 1575 / 1575 Other: Meal Clears Weight 84.2 kg Blood Glucose* 91 115 114 Patient Weight 09/17/17 23:59 Weight 84.2 kg - Labs CBC & BMP: 09/17/17 03:10 09/16/17 06:06 Labs: Abnormal lab results Hgb 6.8 g/dL (12.9-16.9) L 09/17/17 03:10 Hct 20.6 % (37.5-50.1) L 09/17/17 03:10 Sodium 129 mEq/L (136-145) L 09/16/17 06:06 Glucose 100 mg/dL (70-99) H 09/16/17 06:06 POC Glucose 103 (58-89) H 09/16/17 23:23 Calculated Osmolality 269 (280-300) L 09/16/17 06:06 Calcium 8.1 mg/dL (8.6-10.8) L 09/16/17 06:06 - VTE Documentation of Mechanical Device: Venous foot pump, device Consult Discharge Plan - Plan Referrals: Layla Falk PAC [Physician Finish Production Manager] - 09/25/17 9:45 am Efra Jalloh MD [Partnered Physician] - (PATIENT IS GOING TO [facility] NO PCP NEEDED) Audi Tafoya MD [Partnered Physician] - (SENT WEB REQUEST ON 09-16-17 @ 2030 )
[2017-09-17] MEDS: *HR* HYDROmorphone (PF) 1 MG/ML SYRINGE IVP PRN ×2 (07:16→14:03)
[2017-09-17] MEDS: Ascorbic Acid 500 MG TABLET PO SCH ×2 (07:18→15:44)
[2017-09-17] MEDS: Gabapentin 400 MG CAPSULE PO SCH ×3 (07:18→21:14)
[2017-09-17] MEDS: Multivit/Ca/Min/Fe/FA 1 TAB TABLET PO SCH (07:18)
[2017-09-17] MEDS ORDERED: 0.9 % Sodium Chloride 250 ML ONE (08:43)
--- NOTE | 2017-09-17 10:06 | Internal Med Progress Note ---
<Brian Arteaga - Last Filed: 09/17/17 16:46> Date of Encounter: 09/17/17 Time of Encounter: 08:45 - Assessment and plan (1) Status post total hip replacement, left Current Visit: No Status: Acute Assessment and plan: Ortho following patient; will contact ortho team if pertinent concerns arise Cont follow with ortho; defer relevant management to their service (2) Hematemesis with nausea Current Visit: Yes Status: Acute Assessment and plan: Following with G.I.; continues to have worsening anemia. Will await GI recommendations Apparently 2/2 esophagitis no further hematemesis, however, hemoglobin continues to downtrend below 7 this AM; will transfuse and recheck hemoglobin On PPI drip; add carafate (3) Anemia Current Visit: Yes Status: Acute Assessment and plan: Acute blood loss likely UGI bleed continue to follow with G.I. Follow H/H Transfuse in progress Qualifiers: Anemia type: unspecified type Qualified Code(s): D64.9 - Anemia, unspecified (4) Alcohol abuse Current Visit: Yes Status: Chronic Assessment and plan: Cont CIWA protocol (5) DVT prophylaxis Current Visit: Yes Status: Acute Assessment and plan: ICDs for now; defer heparin due to concern of UGI bleed - Subjective Interval history: Hemoglobin said continue to downtrend most recently at 6.8 g. Nursing attempted to have patient consent to transfusion, the patient was resistant to this idea. On speaking with patient, patient states he does not feel that he deserves to be treated with blood products. On further discussion, patient is agreeable to receiving transfusion. Patient denies any acute pain or other complaints at this time. - Constitutional Vitals: Temp Pulse Resp BP Pulse Ox 97.9 F 94 16 108/63 97 09/17/17 09:00 09/17/17 09:00 09/17/17 09:00 09/17/17 09:00 09/17/17 09:00 General appearance: Present: cooperative, A&O X 3, pleasant, no acute distress, answers questions appropriately - Head Head exam: Present: atraumatic, normocephalic - Eye Eye exam: Present: PERRL, conjuntiva pink, sclera anicteric Additional comments: Appreciable conjunctival pallor - Neck Neck exam general surgery: Present: supple, trachea midline - Respiratory Respiratory exam: Present: CTAB. Absent: accessory muscle use, rales, respiratory distress, rhonchi, stridor, wheezes, tachypnea - Cardiovascular Cardiovascular exam: Present: RRR, +S1, +S2, tachycardia. Absent: diastolic murmur, gallop, rubs, +S3, +S4, systolic murmur - GI/Abdominal GI/Abdominal exam: Present: soft, no peritoneal signs. Absent: distended, firm , guarding, tenderness - Extremities Exam Extremities exam: Present: warm, radial pulses palpable and symmetrical. Absent : calf tenderness, cyanotic, mottling, pedal edema - Neurological Exam Neurological exam: Present: oriented X3, no focal deficits. Absent: facial droop, speech deficit - Skin Skin exam: Present: diaphoretic (Mild), dry, intact. Absent: cyanosis, erythema , mottled Internal Medicine: Result - Labs CBC & Chem 7: 09/17/17 15:36 09/16/17 06:06 Labs: Short CBC 09/16/17 09/16/17 09/17/17 Range/Units 15:02 20:29 03:10 Hgb 8.1 L D 7.4 L 6.8 L (12.9-16.9) g/dL Hct 24.4 L 22.0 L 20.6 L (37.5-50.1) % Laboratory Last Values Hgb 6.8 g/dL (12.9-16.9) L 09/17/17 03:10 Hct 20.6 % (37.5-50.1) L 09/17/17 03:10 Sodium 129 mEq/L (136-145) L 09/16/17 06:06 Potassium 3.9 mEq/L (3.5-4.5) 09/16/17 06:06 Chloride 98 mEq/L (98-109) 09/16/17 06:06 Carbon Dioxide 26 mEq/L (19-29) 09/16/17 06:06 BUN 16 mg/dL (8-26) 09/16/17 06:06 Creatinine 0.75 mg/dL (0.72-1.25) 09/16/17 06:06 Est GFR ( Amer) > 60 (> 60) 09/16/17 06:06 Est GFR (Non-Af Amer) > 60 (> 60) 09/16/17 06:06 BUN/Creatinine Ratio 21 (6-26) 09/16/17 06:06 Glucose 100 mg/dL (70-99) H 09/16/17 06:06 POC Glucose 121 (58-89) H 09/17/17 07:36 Calculated Osmolality 269 (280-300) L 09/16/17 06:06 Calcium 8.1 mg/dL (8.6-10.8) L 09/16/17 06:06 Blood Type A POSITIVE 09/15/17 19:57 Antibody Screen NEGATIVE 09/15/17 19:57 Crossmatch See Detail 09/15/17 19:57 - VTE Documentation of Mechanical Device: Venous foot pump, device Consult Discharge Plan - Plan Referrals: Layla Falk PAC [Physician Rug Frame Mounter] - 09/25/17 9:45 am Efra Jalloh MD [Partnered Physician] - (PATIENT IS GOING TO [facility] NO PCP NEEDED) Audi Tafoya MD [Partnered Physician] - (SENT WEB REQUEST ON 09-16-17 @ [phone] ) <Jens Street - Last Filed: 09/17/17 17:24> Date of Encounter: 09/17/17 - Assessment and plan (1) Anemia Current Visit: Yes Status: Acute Qualifiers: Anemia type: other cause Other causes of anemia: acute posthemorrhagic Qualified Code(s): D62 - Acute posthemorrhagic anemia (2) Hematemesis with nausea Current Visit: Yes Status: Acute (3) Tobacco use Current Visit: No Status: Chronic (4) Hyperlipidemia Current Visit: No Status: Chronic Qualifiers: Hyperlipidemia type: mixed hyperlipidemia Qualified Code(s): E78.2 - Mixed hyperlipidemia (5) Avascular necrosis of bones of both hips Current Visit: No Status: Chronic (6) Status post total hip replacement, right Current Visit: No Status: Chronic (7) Status post total hip replacement, left Current Visit: No Status: Acute (8) Alcohol abuse Current Visit: Yes Status: Chronic - Constitutional Vitals: Temp Pulse Resp BP Pulse Ox 98.4 F 97 17 99/62 97 09/17/17 15:55 09/17/17 15:55 09/17/17 15:55 09/17/17 15:55 09/17/17 15:55 Internal Medicine: Result - Labs CBC & Chem 7: 09/17/17 15:36 09/16/17 06:06 Labs: Short CBC 09/16/17 09/17/17 09/17/17 Range/Units 20:29 03:10 15:36 Hgb 7.4 L 6.8 L 8.4 L D (12.9-16.9) g/dL Hct 22.0 L 20.6 L 25.7 L (37.5-50.1) % - Attending Attestation I examined this patient and my medical decision-making was reviewed with the Resident Physician on 09/17/17. I agree with the documented findings, disposition and treatment plan as described except to the extent set forth below. Mr Stallings is currently admitted for L THR and subsequently developed acute UGI bleed. He remains high risk due to need for monitoring of blood counts and blood transfusion. Mr Stallings is having some numbness in his leg but is able to stand and move. Received 2 units PRBCs today. No CP or SOB. No fever or chills. Exam Alert. Comfortable Heart reg No wheeze Abd soft No edema I/P 1. Acute UGI bleed 2. Anemia due to blood loss acute Further diagnoses and plan as above Transfer to med floor.
[2017-09-17] MEDS: *HR* OxyCODONE Immed Rel 5 MG TABLET PO PRN ×3 (11:15→20:49)
[2017-09-17] MEDS: Pantoprazole 80 MG in 0.9 % Sodium Chloride 250 ML IVC SCH ×2 (14:00→18:36)
[2017-09-17] MEDS: 0.9 % Sodium Chloride 1,000 ML IVC SCH (14:00)
[2017-09-17 16:07] LABS: Hematocrit 25.7 % (37.5-50.1)
[2017-09-17 16:12] LABS: Hemoglobin 8.4 g/dL (12.9-16.9)
[2017-09-17] MEDS: Pantoprazole 40 MG VIAL IVP SCH (17:57)
[2017-09-17 18:47] LABS: Basophils % 0.2 %; Eosinophils # 0.2 K/mcL (0.0-0.6); Eosinophils % 1.7 %; Hematocrit 24.1 % (37.5-50.1); Hemoglobin 7.9 g/dL (12.9-16.9); Immature Granulocytes % 0.7 % (0-4); Lymphocytes % 34.6 %; Mean Corpuscular HGB Conc 32.8 g/dL (31.6-35.5); Mean Corpuscular Hemoglobin 30.3 pg (28.0-33.3); Mean Corpuscular Volume 92.3 fL (83.0-100.0); Mean Platelet Volume 8.9 fL (9.4-12.4); Monocytes # 0.8 K/mcL (0.0-1.3); Monocytes % 9.6 %; Neutrophils # 4.6 K/mcL (1.6-8.9); Platelet Count 151 K/mcL (140-400); Red Blood Count 2.61 M/mcL (4.19-5.50); Red Cell Distribution Width 15.9 % (11.5-14.5); Segmented Neutrophils % 53.2 %
[2017-09-17] MEDS: *HR* LORazepam 2 MG/ML VIAL IVP PRN (21:45)
[2017-09-18] MEDS: *HR* OxyCODONE Immed Rel 5 MG TABLET PO PRN ×4 (01:05→14:46)
[2017-09-18] MEDS: Pantoprazole 40 MG VIAL IVP SCH (06:32)
[2017-09-18] MEDS: Ascorbic Acid 500 MG TABLET PO SCH (07:57)
[2017-09-18] MEDS: Multivit/Ca/Min/Fe/FA 1 TAB TABLET PO SCH (07:58)
[2017-09-18] MEDS: Gabapentin 400 MG CAPSULE PO SCH ×2 (07:58→14:47)
[2017-09-18 08:03] LABS: Basophils % 0.4 %; Eosinophils # 0.2 K/mcL (0.0-0.6); Eosinophils % 3.1 %; Hematocrit 24.6 % (37.5-50.1); Hemoglobin 8.1 g/dL (12.9-16.9); Immature Granulocytes % 0.5 % (0-4); Lymphocytes # 2.5 K/mcL (0.6-4.6); Lymphocytes % 34.4 %; Mean Corpuscular HGB Conc 32.9 g/dL (31.6-35.5); Mean Corpuscular Hemoglobin 30.2 pg (28.0-33.3); Mean Corpuscular Volume 91.8 fL (83.0-100.0); Mean Platelet Volume 8.9 fL (9.4-12.4); Monocytes # 0.7 K/mcL (0.0-1.3); Monocytes % 9.6 %; Neutrophils # 3.8 K/mcL (1.6-8.9); Platelet Count 176 K/mcL (140-400); Red Blood Count 2.68 M/mcL (4.19-5.50)
[2017-09-18] MEDS: 0.9 % Sodium Chloride 1,000 ML IVC SCH (08:08)
[2017-09-18 08:19] LABS: Albumin 2.1 g/dL (3.5-5.0); Albumin/Globulin Ratio 0.7 (1.1-2.2); Alkaline Phosphatase 46 Units/L (38-126); Aspartate Amino Transferase 17 Units/L (5-34); BUN/Creatinine Ratio 5 (6-26); Bilirubin,Total 0.3 mg/dL (0.2-1.2); Carbon Dioxide 26 mEq/L (19-29); Chloride 104 mEq/L (98-109); Glucose 101 mg/dL (70-99); Osmolality,Calculated 277 (280-300); Potassium 3.7 mEq/L (3.5-4.5); Sodium 135 mEq/L (136-145); Total Protein 5.1 g/dL (6.0-8.3); eGFR For African Americans > 60 (> 60); eGFR For Non-African Americans > 60 (> 60)
[2017-09-18 08:21] LABS: Alanine Aminotransferase < 6 Units/L (0-55); Blood Urea Nitrogen 3 mg/dL (8-26)
[2017-09-18] MEDS ORDERED: 0.9 % Sodium Chloride 250 ML ONE (09:38)
--- NOTE | 2017-09-18 09:55 | Discharge Summary ---
<Brian Arteaga - Last Filed: 09/18/17 17:10> Date of Encounter: 09/18/17 Time of Encounter: 09:53 - Discharge Diagnosis (1) Status post total hip replacement, left Priority: Primary Status: Acute (2) Hematemesis with nausea Priority: Primary Status: Acute Comments: One-time event; no recurrent events since. (3) Anemia Priority: Secondary Status: Acute Comments: Collectively given 3 units of packed red blood cells; hemoglobin is stable. Will need G.I. follow-up on outpatient basis. Qualifiers: Anemia type: other cause Other causes of anemia: acute posthemorrhagic Qualified Code(s): D62 - Acute posthemorrhagic anemia (4) Alcohol abuse Priority: Secondary Status: Chronic - Discharge Medications Prescriptions: Aluminum Hydroxide 600 mg PO TIDAC 30 Days #450 ml Omeprazole [PriLOSEC] 20 mg PO DAILY #30 cap Sucralfate [Carafate] 1 gm PO BID #30 tablet Sucralfate [Carafate] 10 ml PO QID 30 Days #1 l Home Medications: Gabapentin [Neurontin] 800 mg PO TID 07/15/17 [History] OxyCODONE Immed Rel [Roxicodone 5 MG] 5 mg PO Q6HR PRN #28 tablet 09/13/17 [Rx] Aluminum Hydroxide 600 mg PO TIDAC 30 Days #450 ml 09/18/17 [Rx] Omeprazole [PriLOSEC] 20 mg PO DAILY #30 cap 09/18/17 [Rx] Sucralfate [Carafate] 1 gm PO BID #30 tablet 09/18/17 [Rx] Sucralfate [Carafate] 10 ml PO QID 30 Days #1 l 09/18/17 [Rx] Allergies/Adverse Reactions: 3 Allergy/AdvReac Type Severity Reaction Status Date / Time acetaminophen [From Tylenol] AdvReac Nausea Verified 09/14/17 14:06 naproxen [From Naprosyn] AdvReac Chest Pain Verified 09/14/17 14:06 Procedures/tests Complete & Pending: Procedures Performed prior 72 hours Category Date Time Status ECG 12 lead ECG [ECG] Routine Y 09/15/17 17:59 Completed Date of admission: 09/14/17 21:20 Primary care physician: PCP NONE Consults: 09/14/17 21:49 Consult to Nurse Navigator [CONS] Routine Comment: ortho navigator Consult to Occupational Therapy [CONS] Routine Comment: Evaluate, develop and implement POC Reason for Consult: total hip replacement Consult to Physical Therapy [CONS] Routine Comment: Evaluate, develop and implement POC Reason for Consult: total hip replacement Consult to Political Science Research Assistant [CONS] Routine Reason for SW Consult: post op joint replacement RT Post Op Consult [CONS] Routine 09/15/17 02:10 Consult to Political Science Research Assistant [CONS] Routine Reason for SW Consult: Feels may need ECF 09/15/17 19:28 Consult to Hospitalist [CONS] Routine Consulting Provider: Hospitalhubert Alcantara Reason for Consult: coffee ground emesis, tachycardia Call Completed: Yes 09/15/17 19:31 Consult to Gastroenterology [CONS] Routine Consulting Provider: Raymond Mata Reason for Consult: Acute GI bleed Time Notified: 19:25 Call Completed: Yes 09/16/17 08:15 Consult to Political Science Research Assistant [CONS] Routine Reason for SW Consult: may need ECF Discharging clinician: Brian Arteaga Anticipated date of discharge: 09/18/17 - Patient Status Disposition: Transfer SNF Condition: Good Functional capacity at discharge: uses cane/walker (Per PT assessment/ recommendation) Overall status at discharge: patient is progressing back to baseline - Discharge Instructions Follow Up With: Layla Falk PAC [Physician Boxing Inspector] - 09/25/17 9:45 am Efra Jalloh MD [Partnered Physician] - (PATIENT IS GOING TO ECF NO PCP NEEDED) Arjun Montes, DAYCARE ASSISTANT [Advanced Practice Nurse] - 10/05/17 3:05 pm Additional Instructions: Please take all medications as prescribed adhere to soft diet please follow up with your primary care physician with the next one to 2 weeks -- may consider general surgery consultation at recommendation of your primary care physician if your abdominal discomfort does not improve follow-up with gastroenterology within the next 2 to 4 weeks please adhere to physical therapy recommendations including use of walking assistive devices until you're cleared for independent ambulation please report any new recurrent symptoms to your nurse or primary physician please return to the emergency department for further evaluation as needed for symptoms as we have discussed - Diet and Activity Activity: as per physical therapy Diet: other (Soft diet only including ground or pured foods) Interval History: Patient continues to have epigastric discomfort with swallowing. Per EGD report , patient does have mild hiatal hernia. Patient is not having any acute or worsening symptoms otherwise including fatigue, diaphoresis, chest pain, lightheadedness, fevers, chills, or shortness of air. Patient's hemoglobin has been stable overnight. Vital signs stable with normotensive blood pressure. Hospital course: Mr. Stallings is a 52 year old male with history of avascular necrosis of bilateral hips admitted for left TH a orthopedic service. During inpatient course, patient develops single episode of copious coffee ground emesis prompting transfer [facility] further evaluation and intervention. Hemoglobin on initial admit was above 15 g which is progressively decreased throughout hospital course. Hemoglobin aguilar was 6.8. Patient has collectively been given 3 units of packed red blood cells in response to this. Ultimately hemoglobins have stabilized above 8 g with no decrease over last 24-hour period. G.I. was consulted on this case and EGD was performed; scope demonstrated severe esophagitis, mild hiatal hernia, and friable duodenitis. Recommend discharge with [facility] ferny Q ideas as well as PPI. Recommended follow-up EGD as well. Patient has stable vital signs and is otherwise in good condition for discharge to long-term facility. No factors inhibitory to beginning physical rehab for DYLON. - Time Spent with Patient Total time spent providing and/or coordinating discharge services: Less than 30 minutes - Constitutional Vitals: Temp Pulse Resp BP Pulse Ox 98.5 F 77 16 112/61 98 09/18/17 07:41 09/18/17 07:41 09/18/17 07:41 09/18/17 07:41 09/18/17 08:05 General appearance: Present: cooperative, A&O X 3, pleasant, no acute distress, answers questions appropriately Exam: CONSTITUTIONAL: Alert and oriented X3, well-nourished, well appearing, in no apparent distress HEAD: Normocephalic; atraumatic. EYES: PERRL, no scleral icterus. NOSE: The nose is normal in appearance without rhinorrhea RESP: Normal chest excursion with respiration; breath sounds clear and equal bilaterally; no wheezes, rhonchi, or rales CARD: Regular rhythm, without murmurs, rub or gallop ABD: Non-distended; non-tender, soft,without rigidity, rebound or guarding SKIN: Normal for age and race; warm and dry; no apparent lesions - VTE Documentation of Mechanical Device: Intermittent pneumatic compression device <Jens Street - Last Filed: 09/18/17 17:43> Date of Encounter: 09/18/17 - Discharge Diagnosis (1) Hematemesis with nausea Status: Acute (2) Anemia Priority: Secondary Status: Acute Qualifiers: Anemia type: other cause Other causes of anemia: acute posthemorrhagic Qualified Code(s): D62 - Acute posthemorrhagic anemia (3) Status post total hip replacement, left Status: Acute (4) Tobacco use Priority: Secondary Status: Chronic (5) Hyperlipidemia Priority: Secondary Status: Chronic Qualifiers: Hyperlipidemia type: mixed hyperlipidemia Qualified Code(s): E78.2 - Mixed hyperlipidemia (6) Avascular necrosis of bones of both hips Priority: Secondary Status: Chronic (7) Status post total hip replacement, right Priority: Secondary Status: Chronic (8) Alcohol abuse Status: Chronic Procedures/tests Complete & Pending: Procedures Performed prior 72 hours Category Date Time Status ECG 12 lead ECG [ECG] Routine Y 09/15/17 17:59 Completed Date of admission: 09/14/17 21:20 Primary care physician: PCP NONE Consults: 09/14/17 21:49 Consult to Nurse Navigator [CONS] Routine Comment: ortho navigator Consult to Occupational Therapy [CONS] Routine Comment: Evaluate, develop and implement POC Reason for Consult: total hip replacement Consult to Physical Therapy [CONS] Routine Comment: Evaluate, develop and implement POC Reason for Consult: total hip replacement Consult to Political Science Research Assistant [CONS] Routine Reason for SW Consult: post op joint replacement RT Post Op Consult [CONS] Routine 09/15/17 02:10 Consult to Political Science Research Assistant [CONS] Routine Reason for SW Consult: Feels may need ECF 09/15/17 19:28 Consult to Hospitalist [CONS] Routine Consulting Provider: Alondra Alcantara Reason for Consult: coffee ground emesis, tachycardia Call Completed: Yes 09/15/17 19:31 Consult to Gastroenterology [CONS] Routine Consulting Provider: Raymond Mata Reason for Consult: Acute GI bleed Time Notified: 19:25 Call Completed: Yes 09/16/17 08:15 Consult to Political Science Research Assistant [CONS] Routine Reason for SW Consult: may need ECF Hospital course: Mr. Stallings is a 52 year old male - Time Spent with Patient Total time spent providing and/or coordinating discharge services: My discharge time was 38min - Constitutional Vitals: Temp Pulse Resp BP Pulse Ox 97.7 F 84 16 100/65 94 09/18/17 13:11 09/18/17 13:11 09/18/17 13:11 09/18/17 13:11 09/18/17 13:11 - Attending Attestation I examined this patient and my medical decision-making was reviewed with the Resident Physician on 09/18/17. I agree with the documented findings, disposition and treatment plan as described except to the extent set forth below. Mr Stallings was originally admitted for L THR. He developed acute UGI bleed with hematemesis postoperatively and was found to have esophagitis. He had anemia that was treated with blood transfusions with improvement. He is now afebrile with stable vitals and ready for discharge to rehab. Exam Alert. Comfortable Heart reg Lungs clear Abd soft Mucus membranes dry Plan D/C to SNF
[2017-09-18 13:12] VITALS: BP 100/65
== END 2017-09-18 16:20 | DRG 301 ==
LOC: SAMDAY 13:32 → SUATTDRO 21:20 → 3NENU 21:20 → 2NNU 09-15 20:57
PROVIDERS: ADMIT Internal Medicine; ATTEND Internal Medicine

== ENCOUNTER 2019-04-02 19:19 | Inpatient (IN) ==
[~2019-04-02 19:19] MED LIST changes: +*HR* Etomidate 20 MG/10 ML AMPUL IVP ONE; +*HR* Rocuronium Bromide 100 MG/10 ML VIAL IVC ONE; -CeFAZolin Premix DUPLEX 2,000 MG/50 ML BAG IVPB SCH
[2019-04-02] MEDS ORDERED: *HR* Etomidate 20 MG/10 ML AMPUL IVP ONE (19:37)
[2019-04-02] MEDS ORDERED: *HR* Rocuronium Bromide 50 MG/5 ML VIAL IVP ONE (19:37)
--- NOTE | 2019-04-02 19:42 | Emergency Department Note ---
Overdose - [facility] Narrative Medical decision making narrative: Patient's evaluation in the emergency department demonstrates findings consistent with an opiate overdose. The patient had findings consistent with it. He had pinpoint pupils with minimal response to Narcan after 12 mg patient was intubated. Patient tolerated well. RSI was used. He was sedated with propofol and fentanyl. Patient had a head CT and cervical spine CT as well as a chest x-ray which demonstrated NO acute process with the exception of bibasilar atelectasis. The patient had a Pearce placed here in the emergency department and lab work is otherwise pending. Patient will be admitted to the ICU at this time with diagnosis of likely opiate overdose. I do not feel this is intracranial abnormality secondary to the fact that his head CT was within normal limits but I am concerned about potential anoxic brain injury given the patient's respiratory status upon arrival to the emergency department. The patient will be admitted to the ICU. Accepted by Dr. Figueredo. - Lab Data Lab results reviewed: Yes I reviewed the patient's lab results. Result diagrams: 04/02/19 20:09 Lab Results 04/02/19 Range/Units 20:09 WBC 6.2 (4.3-11.1) K/mcL RBC 4.20 (4.19-5.50) M/mcL Hgb 14.5 (12.9-16.9) g/dL Hct 43.7 (37.5-50.1) % MCV 104.0 H (83.0-100.0) fL MCH 34.5 H (28.0-33.3) pg MCHC 33.2 (31.6-35.5) g/dL RDW 13.3 (11.5-14.5) % Plt Count 215 (140-400) K/mcL MPV 9.0 L (9.4-12.4) fL Immature Gran % 0.3 (0-4) % Seg Neutrophils % 53.9 % Lymphocytes % 34.3 % Monocytes % 8.1 % Eosinophils % 2.6 % Basophils % 0.8 % Neutrophils # 3.4 (1.6-8.9) K/mcL Lymphocytes # 2.1 (0.6-4.6) K/mcL Monocytes # 0.5 (0.0-1.3) K/mcL Eosinophils # 0.2 (0.0-0.6) K/mcL Basophils # 0.1 (0.0-0.2) K/mcL - Radiology Data Radiology results reviewed: Yes I reviewed the patient's radiology results. Chest X-Ray 04/02/19 19:37 IMPRESSION: 1. Endotracheal tube tip terminates 5.1 cm above the phil. 2. Lower lung volumes with basilar atelectasis. D/ / 04/02/2019 19:59:10 Michelle Diggs MD / elliott Interpreting Provider: Michelle Diggs MD Cervical Spine CT 04/02/19 19:38 IMPRESSION: No acute abnormality of the cervical spine. Mild to moderate multilevel degenerative changes at C4 through C7. D/ / 04/02/2019 20:16:52 Michelle Diggs MD / elliott Interpreting Provider: Michelle Diggs MD Head CT 04/02/19 19:38 IMPRESSION: No acute intracranial abnormality. Paranasal sinus mucosal disease. D/ / Castillo Mooney / Castillo Mooney Interpreting Provider: Castillo Mooney - EKG Data EKG attestation: Yes I reviewed and interpreted this EKG. EKG results narrative: Heart rate 118 beats for minute. Sinus tachycardia. No ST elevation or ST depression noted. No other acute changes noted other than tachycardia. Overdose HPI - General Chief Complaint: ED Overdose Stated Complaint: OD Time Seen by Provider: 04/02/19 19:35 Source: EMS Mode of arrival: EMS Limitations: altered mental status Nursing Notes Reviewed: Yes Vital Signs Reviewed: Yes - History of Present Illness HPI Narrative: 53-year-old male with history of apparent valve replacement on some sort of anticoagulant therapy was found down at home by family member in the kitchen. It has an extensive history of alcohol abuse and drug abuse. The patient is track jones in bilateral upper extremities. Patient had EMS called and was noted that the patient had pinpoint pupils and was apneic. He was administered 4 of Narcan, 2 intranasal and 2 IV. Patient had minimal to no response to this. He arrived to the emergency department was administered another 8 mg of Narcan to no response. At that time was elected the patient was intubated. The patient had an RSI. The patient was intubated without difficulty. Patient arrived in c-collar. No other obvious signs of trauma. - Related Data Home Medications Medication Instructions Recorded Confirmed Gabapentin [Neurontin] 800 mg PO TID 07/15/17 04/02/19 Loratadine [Allergy Relief] 10 mg PO DAILY PRN 07/28/18 04/02/19 Doxepin HCl 10 mg PO HS 04/02/19 04/02/19 Allergies Allergy/AdvReac Type Severity Reaction Status Date / Time acetaminophen [From Tylenol] AdvReac Nausea Verified 07/28/18 11:23 naproxen [From Naprosyn] AdvReac Chest Pain Verified 07/28/18 11:23 Limitations: ROS unobtainable due to patients medical condition Past Medical History - Past Medical History Source: old records reviewed Medical history: Reports: other Surgical history: Reports: orthopedic, other, sinus surgery, other Psychiatric history: Reports: prior suicide attempt - Social History Smoking Status: Current every day smoker Smokeless Tobacco Status: No Alcohol use: Reports: occasionally Drug use: Reports: none Physical Exam - General Limitations: altered mental status General appearance: obtunded - Head Head exam: atraumatic, normocephalic, normal inspection - Eye Eye exam: Present: miosis - ENT ENT exam: normal oropharynx, mucous membranes moist - Neck Neck exam: Present: normal inspection, trachea midline, other (in c-collar) - Chest Chest inspection: Present: normal inspection, symmetric chest wall rise - Respiratory Respiratory exam: Present: other (coarse breath sounds) - Cardiovascular Cardiovascular exam: Present: normal rhythm, tachycardia - Abdominal Exam Abdominal exam: Present: soft, Non-Tender. Absent: distention - Extremities Exam Extremities exam: Present: normal capillary refill, other (track jones noted bilaterally) - Expanded Neurological Exam Coma Scale Eye Opening: None Coma Scale Motor Response: None Coma Scale Verbal Response: None Coma Scale Total: 3 - Skin Skin exam: Present: warm, dry, intact, normal color Course Vital Signs Temperature 97.4 F L 04/02/19 19:21 Pulse Rate 119 04/02/19 19:21 Respiratory Rate 19 04/02/19 19:21 Blood Pressure 112/69 04/02/19 19:21 O2 Sat by Pulse Oximetry 93 04/02/19 19:21 Temperature 97.4 F L 04/02/19 19:21 Pulse Rate 129 04/02/19 19:31 Respiratory Rate 16 04/02/19 19:56 Blood Pressure 111/80 04/02/19 19:31 O2 Sat by Pulse Oximetry 94 04/02/19 19:56 Oxygen Delivery Oxygen Delivery Ventilator Procedures - Intubation Time out performed: No sedative: Etomidate Mg Given: 20 paralytic: Rocuronium Mg Given: 80 Laryngoscope: fiber optic video scope ET Tube Size: 7.5 ET Tube Uncuffed: No Tube Secured Depth (cm): 21 Tube Secured Location: lips Tube Placement Confirmation: visualized tube passing through cords, equal breath sounds bilaterally, no breath sounds over epigastrium, confirmation by cap nometry Patient Tolerated Procedure: well, no complications Intubation Complications: none - Ultrasound-Other Narrative: [id number] ultrasound FAST exam negative for any intra-abdominal fluid. Disposition Clinical Impression: Acute respiratory failure Qualifiers: Respiratory failure complication: hypoxia Qualified Code(s): J96.01 - Acute respiratory failure with hypoxia Opiate overdose Qualifiers: Encounter type: initial encounter Injury intent: undetermined intent Qualified Code(s): T40.604A - Poisoning by unspecified narcotics, undetermined, initial encounter Disposition: Admitted As Inpatient Condition: Critical Referrals: NONE,PCP [Primary Care Provider] - Forms: ED Satisfaction Letter Time of Disposition: 20:32
--- NOTE | 2019-04-02 19:44 | Emergency Department Note ---
Disposition Clinical Impression: Acute respiratory failure Qualifiers: Respiratory failure complication: hypoxia Qualified Code(s): J96.01 - Acute respiratory failure with hypoxia Disposition: Still a Patient Condition: Critical Referrals: NONE,PCP [Primary Care Provider] - Time of Disposition: 19:44 General Adult HPI - General Chief complaint: ED Overdose Stated complaint: OD Time Seen by Provider: 04/02/19 19:35 Source: EMS Limitations: altered mental status - History of Present Illness Pain Scale: 0 - Related Data Home Medications Medication Instructions Recorded Confirmed Gabapentin [Neurontin] 800 mg PO TID 07/15/17 07/28/18 Amitriptyline [Elavil] 50 mg PO HS 07/28/18 07/28/18 Loratadine [Allergy Relief] 10 mg PO DAILY PRN 07/28/18 07/28/18 Allergies Allergy/AdvReac Type Severity Reaction Status Date / Time acetaminophen [From Tylenol] AdvReac Nausea Verified 07/28/18 11:23 naproxen [From Naprosyn] AdvReac Chest Pain Verified 07/28/18 11:23 Past Medical History - Past Medical History Medical history: Reports: no medical history, other Surgical history: Reports: orthopedic, other, sinus surgery, other Psychiatric history: Reports: prior suicide attempt - Social History Smoking Status: Current every day smoker Smokeless Tobacco Status: No Alcohol use: Reports: occasionally Drug use: Reports: none Physical Exam - General Limitations: altered mental status Course Vital Signs Temperature 97.4 F L 04/02/19 19:21 Pulse Rate 119 04/02/19 19:21 Respiratory Rate 19 04/02/19 19:21 Blood Pressure 112/69 04/02/19 19:21 O2 Sat by Pulse Oximetry 93 04/02/19 19:21 Temperature 97.4 F L 04/02/19 19:21 Pulse Rate 129 04/02/19 19:31 Respiratory Rate 18 04/02/19 19:31 Blood Pressure 111/80 04/02/19 19:31 O2 Sat by Pulse Oximetry 92 04/02/19 19:31 Oxygen Delivery Oxygen Delivery Ventilator Attestation Statement - Attestation Attestation: I examined this patient and my medical decision-making was reviewed with the Resident Physician. I agree with the documented findings, disposition and treatment plan as described except to the extent set forth below. I reviewed the residents documentation and agree with the residents assessment and plan of care. I have personally had face to face time with the patient. (Brief History, Brief Exam, and MDM) I personally supervised and was present for the tena/critical portions of the following procedures completed by the resident: (add procedures performed here). 53 year old male presents to the ED via EMS for overdose and hypoxia and hypote nsion. Family repsonded to loud thud in the room and immeadiately called 911. Ruel has not responded to a total of 12mg of narcan and then consideration is for anoxic brain injury at this time and where he is on coumadin therapy we will obtain a trauma evlaution and place him on pysch precautions as it is unsure if this was intentional. Ruel was successfully intubated without complication an d will be admitted to ICU
[2019-04-02] MEDS ORDERED: FentaNYL (PF) 1,000 MCG in 0.9 % Sodium Chloride 80 ML IVC SCH (19:45)
[2019-04-02] MEDS ORDERED: 0.9 % Sodium Chloride 1,000 ML IVC ONE ×2 (19:46→22:45)
[2019-04-02 20:17] LABS: Basophils # 0.1 K/mcL (0.0-0.2); Basophils % 0.8 %; Eosinophils # 0.2 K/mcL (0.0-0.6); Eosinophils % 2.6 %; Hematocrit 43.7 % (37.5-50.1); Hemoglobin 14.5 g/dL (12.9-16.9); Immature Granulocytes % 0.3 % (0-4); Lymphocytes # 2.1 K/mcL (0.6-4.6); Lymphocytes % 34.3 %; Mean Corpuscular HGB Conc 33.2 g/dL (31.6-35.5); Mean Corpuscular Hemoglobin 34.5 pg (28.0-33.3); Monocytes # 0.5 K/mcL (0.0-1.3); Monocytes % 8.1 %; Neutrophils # 3.4 K/mcL (1.6-8.9); Platelet Count 215 K/mcL (140-400); Red Cell Distribution Width 13.3 % (11.5-14.5); Segmented Neutrophils % 53.9 %
[2019-04-02 20:37] LABS: Acetaminophen < 10 mcg/mL (10-20); Ethanol 194 mg/dL (Less than 10); Salicylate < 2.5 mg/dL (15.0-30.0)
[2019-04-02 20:41] LABS: Alanine Aminotransferase 21 Units/L (7-52); Albumin 4.3 g/dL (3.5-5.7); Albumin/Globulin Ratio 1.6 (1.1-2.2); Alkaline Phosphatase 58 Units/L (34-104); Aspartate Amino Transferase 27 Units/L (13-39); BUN/Creatinine Ratio 8 (6-26); Bilirubin,Direct 0.1 mg/dL (0.0-0.2); Bilirubin,Indirect 0.3 mg/dL (0.0-1.2); Bilirubin,Total 0.4 mg/dL (0.3-1.0); Blood Urea Nitrogen 9 mg/dL (6-20); Calcium 9.1 mg/dL (8.6-10.3); Carbon Dioxide 20 mEq/L (23-29); Chloride 107 mEq/L (98-107); Globulin 2.7 g/dL (2.4-3.5); Glucose 96 mg/dL (70-105); Osmolality,Calculated 295 (280-300); Potassium 3.6 mEq/L (3.5-5.1); Sodium 143 mEq/L (136-145); Troponin I < 0.03 ng/mL (< 0.04); eGFR For Non-African Americans > 60 (> 60)
[2019-04-02 20:43] LABS: Bilirubin,Urine Negative (Negative); Blood,Urine Negative (Negative); Clarity,Urine Clear (Clear); Color,Urine Yellow (Yellow); Glucose,Urine (UA) Normal (Normal); Ketones,Urine Trace mg/dL (Negative); Leukocyte Esterase,Urine Negative (Negative); Nitrite,Urine Negative (Negative); PH,Urine 5.5 pH Units (5.0-8.0); Protein,Urine 30 mg/dL (Neg-Trace); Specific Gravity,Urine 1.025 (1.010-1.025); Urobilinogen,Urine Normal (Normal)
[2019-04-02 20:46] LABS: Bacteria,Urine None Seen per hpf (None-Few); Hyaline Casts,Urine None Seen per lpf (None-Few); Squamous Epithelial Cell,Urine Many per lpf (None-Few); WBC,Urine 0-3 per hpf (0-3)
[2019-04-02 20:55] LABS: Amphetamine Screen,Urine Negative ng/mL (Cutoff=1000); Barbiturate Screen,Urine Negative ng/mL (Cutoff=200); Benzodiazepines Screen,Urine Negative ng/mL (Cutoff=200); Cannabinoid Screen,Urine Positive ng/mL (Cutoff = 50); Cocaine Screen,Urine Negative ng/mL (Cutoff= 300); Opiate Screen,Urine Negative ng/mL (Cutoff=300); Phencyclidine Screen,Urine Negative ng/mL (Cutoff=25)
[2019-04-02] MEDS ORDERED: Artificial Tears SOLN 15 ML BOTTLE BOTH EYES PRN ×2 (21:35→22:18)
--- NOTE | 2019-04-02 21:35 | Internal Med History&Physical ---
<Dusty Kurtz S - Last Filed: 04/02/19 22:41> Date of Encounter: 04/02/19 Time of Encounter: 22:41 Internal Medicine - H&P: HPI Chief complaint: overdose Admitted From: Home Plans for Post Hospital Care: Home History of present illness: Mr. Mary is a 53 year old male with a PMH of alcoholism comes in unresponsive to the ER. He is on anticoagulation for a valve replacement. He was reportedly found down by the girlfriend who decided not to call EMS because she didn't know how to call 911. She texted a friend and then said that she didn't know what to do. She eventually did call 911 and he was found apneic with pinpoint pupils per the ER note. He was given multiple rounds of narcan and didn't respond. He was then brought to the ER and had 8 more rounds of narcan without response. He was intubated. Family reports that he has no hx of drug abuse and suddenly passed out in the kitchen while cooking. The pt had a negative UDS other than marijuana in the ER. He had negative CT scans of the head and c-spine. He will be transferred to the ICU for further management. Past Med Surg Social Fam HX - Past Medical History Medical history: other Additional medical history: IRREGULAR HEARTBEAT. SMOKER. HEART MURMUR. AVASCULAR NECROSIS BILATERAL HIPS Psychiatric history: prior suicide attempt - Past Surgical History Surgical History: orthopedic, other, sinus surgery, other Additional surgical history: CTR RIGHT HAND, LEFT MIDDLE FINGER AMPUTATED. Bilateral hip replacements - Social History Smoking Status: Current every day smoker Smokeless Tobacco Status: No Alcohol use: occasionally Drug use: none - Family History Mother Living Status: Still Living Internal Medicine - H&P: Meds Gabapentin [Neurontin] 800 mg PO TID 07/15/17 [History] Loratadine [Allergy Relief] 10 mg PO DAILY PRN 07/28/18 [History] Doxepin HCl 10 mg PO HS 04/02/19 [History] Allergy/AdvReac Type Severity Reaction Status Date / Time acetaminophen [From Tylenol] AdvReac Nausea Verified 07/28/18 11:23 naproxen [From Naprosyn] AdvReac Chest Pain Verified 07/28/18 11:23 ROS unobtainable: due to endotracheal tube All Systems PM: A 10-system review of systems was performed and is negative for pertinent findings except as documented above in the HPI. - Constitutional Vitals: Temp Pulse Resp BP Pulse Ox 98 F 111 20 108/68 97 04/02/19 21:06 04/02/19 21:23 04/02/19 21:23 04/02/19 21:23 04/02/19 21:23 Exam: general - aox0, intubated, unable to participiate in conversation heent - ncat, endotracheal tube in place, no brusing or jackson signs pupils fixed and constricted cardio - rrr s1s2 cta no mrg lungs - ctab no wheeze/rhonchi/rales abd - soft ntnd, no peritoneal signs, no rebound or guarding extremities - no pitting edema, multiple tattoos skin - warm,dry,intact neuro - no gag reflex present, pupils fixed and constricted nonreactive to light pt nonreactive to pain, doesn't withdraw from pain psych - unable to assess Internal Med - H&P Results - Labs CBC & Chem 7: 04/02/19 20:09 04/02/19 20:09 Labs: Short CBC 04/02/19 Range/Units 20:09 WBC 6.2 (4.3-11.1) K/mcL Hgb 14.5 (12.9-16.9) g/dL Hct 43.7 (37.5-50.1) % Plt Count 215 (140-400) K/mcL Neutrophils # 3.4 (1.6-8.9) K/mcL BMP 04/02/19 20:09 Sodium 143 Potassium 3.6 Chloride 107 Carbon Dioxide 20 L BUN 9 Creatinine 1.06 Glucose 96 Calcium 9.1 Cardiac Enzymes 04/02/19 Range/Units 20:09 Troponin I < 0.03 (< 0.04) ng/mL Liver Function 04/02/19 Range/Units 20:09 Total Bilirubin 0.4 (0.3-1.0) mg/dL Direct Bilirubin 0.1 (0.0-0.2) mg/dL AST 27 (13-39) Units/L ALT 21 (7-52) Units/L Alkaline Phosphatase 58 (34-104) Units/L Albumin 4.3 (3.5-5.7) g/dL Urine 06/01/19 Range/Units 20:32 Urine Color Yellow (Yellow) Urine Clarity Clear (Clear) Urine pH 5.5 (5.0-8.0) pH Units Ur Specific [place] 1.025 (1.010-1.025) Urine Protein 30 H (Neg-Trace) mg/dL Urine Glucose (UA) Normal (Normal) mg/dL - Impressions ITS Impressions Chest X-Ray 04/02/19 19:37 IMPRESSION: 1. Endotracheal tube tip terminates 5.1 cm above the phil. 2. Lower lung volumes with basilar atelectasis. D/ / 04/02/2019 19:59:10 Michelle Diggs MD / elliott Interpreting Provider: Michelle Diggs MD Cervical Spine CT 04/02/19 19:38 IMPRESSION: No acute abnormality of the cervical spine. Mild to moderate multilevel degenerative changes at C4 through C7. D/ / 04/02/2019 20:16:52 Michelle Diggs MD / elliott Interpreting Provider: Michelle Diggs MD Head CT 04/02/19 19:38 IMPRESSION: No acute intracranial abnormality. Paranasal sinus mucosal disease. D/ / Castillo Mooney / Castillo Mooney Interpreting Provider: Castillo Mooney - Assessment and Plan (1) Syncope and collapse Current Visit: Yes Status: Acute Assessment and plan: Pt reported to have passed out at home and collapsed, unsure of history completely - brother reports extensive alcohol abuse, however, no drug use - unsure of head trauma, pt is on anticoagulation though - pt was unresponsive with a GCS of 3, intubated with RSI in the ER Question of anoxic brain injury, pt pupils fixed and nonreactive to light No gag reflex present at this time Pt not responsive to pain CT head negative for acute intracranial abnormality CT cervical spine negative for acute abnormality UDS negative for opiates, cocaine; (+) for THC XR chest negative for acute abnormality Troponin negative x 1 EtOH 194 Pt did have unremarkable labs overall, no source of infxn present Differential includes alcohol related seizure, cardiac event, neurological event, or possibility of illicit rx not picked up on routine UDS such as K2 Plan: - hold home anticoagulation - ICU admission - telemetry montiroing - will d/c propofol and fentanyl at this time - continue 125cc/hr 0.9% NS - consult to neurology, EEG pending - consult to critical care for ventilator management - ECHO pending - protonix IVP for GI prophylaxis - ventilator bundle ordered - HOB ordered, aspiration precautions - ABG daily - FEN: NPO - DVT prophylaxis: sq heparin - dispo: inpatient management at this time in the ICU (2) Tobacco use Current Visit: No Status: Chronic Assessment and plan: smokes 1 ppd. chronic. (3) Alcohol abuse Current Visit: No Status: Chronic Assessment and plan: Drinks 1 L of whiskey per day. Chronic. (4) DVT prophylaxis Current Visit: Yes Status: Acute Assessment and plan: sq heparin (5) Acute respiratory failure Current Visit: Yes Status: Acute Assessment and plan: Acute respiratory failure requiring intubation in the ER. See above. Qualifiers: Respiratory failure complication: hypoxia Qualified Code(s): J96.01 - Acute respiratory failure with hypoxia (6) Anoxic brain injury Current Visit: Yes Status: Acute Assessment and plan: Suspected. Pupils fixed and dilated, no response to pain, no gag reflex present. Neurology consulted, EEG pending. See above. - Time Spent With Patient Total time spent is greater than 50% in coordination of care (as documented) at patient's floor/unit and/or counseling patient: 25 - 35 minutes <Corby Figueredo - Last Filed: 04/02/19 23:37> Date of Encounter: 04/02/19 Internal Medicine - H&P: HPI History of present illness: Mr. Mary is a 53 year old male All Systems PM: A 10-system review of systems was performed and is negative for pertinent findings except as documented above in the HPI. - Constitutional Vitals: Temp Pulse Resp BP Pulse Ox 98 F 73 16 112/79 99 04/02/19 21:06 04/02/19 23:20 04/02/19 23:20 04/02/19 23:20 04/02/19 23:20 Internal Med - H&P Results - Labs CBC & Chem 7: 04/02/19 20:09 04/02/19 20:09 Labs: Short CBC 04/02/19 Range/Units 20:09 WBC 6.2 (4.3-11.1) K/mcL Hgb 14.5 (12.9-16.9) g/dL Hct 43.7 (37.5-50.1) % Plt Count 215 (140-400) K/mcL Neutrophils # 3.4 (1.6-8.9) K/mcL BMP 04/02/19 20:09 Sodium 143 Potassium 3.6 Chloride 107 Carbon Dioxide 20 L BUN 9 Creatinine 1.06 Glucose 96 Calcium 9.1 Cardiac Enzymes 04/02/19 Range/Units 20:09 Troponin I < 0.03 (< 0.04) ng/mL Liver Function 04/02/19 Range/Units 20:09 Total Bilirubin 0.4 (0.3-1.0) mg/dL Direct Bilirubin 0.1 (0.0-0.2) mg/dL AST 27 (13-39) Units/L ALT 21 (7-52) Units/L Alkaline Phosphatase 58 (34-104) Units/L Albumin 4.3 (3.5-5.7) g/dL Urine 04/02/19 Range/Units 20:32 Urine Color Yellow (Yellow) Urine Clarity Clear (Clear) Urine pH 5.5 (5.0-8.0) pH Units Ur Specific [place] 1.025 (1.010-1.025) Urine Protein 30 H (Neg-Trace) mg/dL Urine Glucose (UA) Normal (Normal) mg/dL - Impressions ITS Impressions Chest X-Ray 04/02/19 19:37 IMPRESSION: 1. Endotracheal tube tip terminates 5.1 cm above the phil. 2. Lower lung volumes with basilar atelectasis. D/ / 04/02/2019 19:59:10 Michelle Diggs MD / elliott Interpreting Provider: Michelle Diggs MD Cervical Spine CT 04/02/19 19:38 IMPRESSION: No acute abnormality of the cervical spine. Mild to moderate multilevel degenerative changes at C4 through C7. D/ / 04/02/2019 20:16:52 Michlele Diggs MD / elliott Interpreting Provider: Michelle Diggs MD Head CT 04/02/19 19:38 IMPRESSION: No acute intracranial abnormality. Paranasal sinus mucosal disease. D/ / Castillo Mooney / Castillo Mooney Interpreting Provider: Castillo Mooney - Assessment and Plan (1) Tobacco use Current Visit: No Status: Chronic (2) Alcohol abuse Current Visit: No Status: Chronic (3) DVT prophylaxis Current Visit: Yes Status: Acute (4) Acute respiratory failure Current Visit: Yes Status: Acute Qualifiers: Respiratory failure complication: hypoxia Qualified Code(s): J96.01 - Acute respiratory failure with hypoxia (5) Syncope and collapse Current Visit: Yes Status: Acute (6) Anoxic brain injury Current Visit: Yes Status: Acute - Time Spent With Patient Total time spent is greater than 50% in coordination of care (as documented) at patient's floor/unit and/or counseling patient: - Attending Attestation I performed a history and physical exam of the patient and discussed management with the resident. I reviewed the resident's note and agree with the documented findings and plan of care. 53 year old man with an unclear etiology of LOC. Noted to have an elevated alcohol level and marijuana in urine but otherwise no evidence of exogenous illicit intoxication. Will get an echo for cardiac eval and repeat a troponin. Keep off sedation for now to assess mental status better and development of reflexes. Keep on maintenance fluids, supplement electrolytes as needed and repeat brain imaging in 24 hours. Monitor for withdrawal state. Ventilator management bundle ordered. CCT 55 mins. XIMENA HOWARD.
[2019-04-02] MEDS ORDERED: Chlorhexidine Rinse 15 ML MOUTHWASH MM SCH (22:30)
[2019-04-02] MEDS ORDERED: *HR* LORazepam 2 MG/ML VIAL IVP PRN ×3 (22:37)
[2019-04-02 23:58] LABS: ABG Base Excess -6 mEq/L (-2 to 3); ABG HCO3 21 mEq/L (21-27); ABG Oxygen Saturation 100 % (95-98); ABG PCO2 47 mmHg (35-45); ABG PH 7.26 pH Units (7.32-7.45); ABG PO2 256 mmHg (85-104); ABG TCO2 23 mEq/L (20-26); Blood Gas PEEP 5 cm H2O; Blood Gas Respiration Rate 16; Blood Gas VT 500 cc
[2019-04-03] MEDS ORDERED: Artificial Tears SOLN 15 ML BOTTLE BOTH EYES SCH
[2019-04-03] MEDS: 0.9 % Sodium Chloride 1,000 ML IVC SCH ×3 (02:44→17:17)
[2019-04-03] MEDS: *HR* Heparin 5,000 UNIT/ML VIAL SQ SCH ×3 (03:30→17:17)
[2019-04-03] MEDS: Artificial Tears SOLN 15 ML BOTTLE BOTH EYES SCH ×6 (03:30→20:11)
[2019-04-03 04:21] LABS: ABG Base Excess -3 mEq/L (-2 to 3); ABG HCO3 24 mEq/L (21-27); ABG Oxygen Saturation 95 % (95-98); ABG PCO2 46 mmHg (35-45); ABG PH 7.32 pH Units (7.32-7.45); ABG PO2 83 mmHg (85-104); ABG TCO2 25 mEq/L (20-26); Blood Gas Modality AF; Blood Gas PEEP 5 cm H2O; Blood Gas Respiration Rate 16; Blood Gas VT 500 cc
[2019-04-03 04:50] LABS: Basophils # 0.1 K/mcL (0.0-0.2); Basophils % 0.7 %; Eosinophils # 0.1 K/mcL (0.0-0.6); Eosinophils % 1.6 %; Hematocrit 43.7 % (37.5-50.1); Hemoglobin 14.2 g/dL (12.9-16.9); Immature Granulocytes % 0.3 % (0-4); Lymphocytes # 2.4 K/mcL (0.6-4.6); Lymphocytes % 31.4 %; Mean Corpuscular HGB Conc 32.5 g/dL (31.6-35.5); Mean Corpuscular Hemoglobin 34.3 pg (28.0-33.3); Mean Corpuscular Volume 105.6 fL (83.0-100.0); Monocytes # 0.6 K/mcL (0.0-1.3); Monocytes % 8.4 %; Neutrophils # 4.3 K/mcL (1.6-8.9); Platelet Count 202 K/mcL (140-400); Red Blood Count 4.14 M/mcL (4.19-5.50); Red Cell Distribution Width 13.7 % (11.5-14.5); Segmented Neutrophils % 57.6 %
[2019-04-03 05:01] LABS: Prothrombin Time 11.4 Seconds (9.4-12.1)
[2019-04-03 05:03] LABS: Activated Partial Thrombo Time 36.1 Seconds (26.0-36.0)
[2019-04-03 05:07] LABS: Alanine Aminotransferase 20 Units/L (7-52); Albumin 3.9 g/dL (3.5-5.7); Albumin/Globulin Ratio 1.6 (1.1-2.2); Alkaline Phosphatase 58 Units/L (34-104); Aspartate Amino Transferase 25 Units/L (13-39); BUN/Creatinine Ratio 9 (6-26); Bilirubin,Direct 0.1 mg/dL (0.0-0.2); Bilirubin,Indirect 0.3 mg/dL (0.0-1.2); Bilirubin,Total 0.4 mg/dL (0.3-1.0); Blood Urea Nitrogen 7 mg/dL (6-20); Calcium 8.6 mg/dL (8.6-10.3); Carbon Dioxide 23 mEq/L (23-29); Chloride 106 mEq/L (98-107); Globulin 2.5 g/dL (2.4-3.5); Glucose 80 mg/dL (70-105); Osmolality,Calculated 299 (280-300); Potassium 3.9 mEq/L (3.5-5.1); Sodium 146 mEq/L (136-145); Total Protein 6.4 g/dL (6.4-8.9); eGFR For Non-African Americans > 60 (> 60)
[2019-04-03] MEDS: Pantoprazole 40 MG VIAL IVP SCH ×2 (06:29→17:17)
[2019-04-03] MEDS: FentaNYL (PF) 1,000 MCG in 0.9 % Sodium Chloride 80 ML IVC SCH ×3 (07:29→17:48)
[2019-04-03 07:46] LABS: Troponin I < 0.03 ng/mL (< 0.04)
[2019-04-03] MEDS: Chlorhexidine Rinse 15 ML MOUTHWASH MM SCH ×2 (07:48→20:11)
--- NOTE | 2019-04-03 10:10 | Pulmonology Consult Note ---
<Eden Gonsalez - Last Filed: 04/03/19 12:45> Date of Encounter: 04/03/19 Time of Encounter: 09:00 Assessment and Plan (1) Alcohol intoxication Current Visit: Yes Status: Acute Percent to the ED after being found unresponsive at home. UDS was positive for marijuana and alcohol level was significantly elevated at 194. Suspected syncopal episode was secondary to alcohol intoxication. 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 Had no gag reflex intact when presented to ED, GCS 3. He was intubated in the ED due to hypoxia. Currently remains sedated and intubated Did a CPAP trial today which resulted in a few episodes of apnea Qualifiers: Respiratory failure complication: hypoxia Qualified Code(s): J96.01 - Acute respiratory failure with hypoxia (3) Syncope and collapse Current Visit: Yes Status: Acute Was presented to the ED via EMS after being found down at home. He is known to have history of alcohol abuse per chart review. At presentation to the ED his GCS score was 3 subsequently was intubated in the ER He had pinpoint pupils reflux at the time of intubation. CT of the head was negative for any acute intracranial abnormalities. His alcohol level was significantly elevated at 194. Suspected syncopal episode is secondary to alcohol intoxication. Continue to remain intubated at this time Continue Precedex This morning was awake and responsive Neurology is consulted for further recommendations (4) DVT prophylaxis Current Visit: Yes Status: Acute Subcutaneous heparin History of Present Illness Consult date: 04/03/19 History of present illness: Mr. Stallings is a 53-year-old male with past medical history of alcoholism was presented to the ED due to unresponsiveness. Was found down by his girlfriend at home. At presentation he was noted to be apneic, had pinpoint pupils with minimal response to Narcan subsequently was intubated in the ED. He had a CT of the head and neck in the ED which showed no acute abnormalities. His UDS is positive for marijuana and elevated alcohol level. Has CBC and BMP were within normal limits, additionally his ammonia level was also within normal limit. Urinalysis not showing any nitrates or leukocyte esterase. He is currently intubated and sedated was originally on propofol but has been switched to Precedex. Past Med Surg Social Fam HX - Past Medical History Medical history: other Additional medical history: IRREGULAR HEARTBEAT. SMOKER. HEART MURMUR. AVASCULAR NECROSIS BILATERAL HIPS Psychiatric history: prior suicide attempt - Past Surgical History Surgical History: orthopedic, other, sinus surgery, other Additional surgical history: CTR RIGHT HAND, LEFT MIDDLE FINGER AMPUTATED. Bilateral hip replacements - Social History Smoking Status: Current every day smoker Smokeless Tobacco Status: No Alcohol use: occasionally Drug use: none - Family History Mother Living Status: Still Living Medications and Allergies Gabapentin [Neurontin] 800 mg PO TID 07/15/17 [History] Loratadine [Allergy Relief] 10 mg PO DAILY PRN 07/28/18 [History] Doxepin HCl 10 mg PO HS 04/02/19 [History] Allergy/AdvReac Type Severity Reaction Status Date / Time acetaminophen [From Tylenol] AdvReac Nausea Verified 07/28/18 11:23 naproxen [From Naprosyn] AdvReac Chest Pain Verified 07/28/18 11:23 ROS unobtainable: due to endotracheal tube All Systems: The remainder of the systems were reviewed and are negative Physical Examination Vital Signs: Vital Signs, Last 4 Hours Temp Pulse Resp BP Pulse Ox 04/03/19 09:00 88 16 127/75 94 04/03/19 08:45 13 135/89 92 04/03/19 08:35 98.3 F 04/03/19 08:00 102 18 144/95 94 04/03/19 07:35 25 142/88 98 04/03/19 07:00 89 24 142/88 98 General appearance: no acute distress, other (Sedated and intubated) ENT: oropharynx moist Neck: supple Auscultation: bilateral: clear Cardiovascular: regular rate and rhythm Gastrointestinal: soft, non-tender, non-distended Integumentary: normal Extremities: no cyanosis, no edema unable to assess due to mental status (Sedated and intubated) Ventilator Settings Ventilator Settings: Ventilator Settings, Last 8 Hours Ventilator Tidal Volume 500 Setting Ventilator Tidal Volume 500 Setting Ventilator Tidal Volume 500 Setting Ventilator Tidal Volume 500 Setting Ventilator Tidal Volume 500 Setting Ventilator Tidal Volume 500 Setting Ventilator Tidal Volume 500 Setting Ventilator Tidal Volume 500 Setting Ventilator Tidal Volume 500 Setting Ventilator Tidal Volume 500 Setting Ventilator Tidal Volume 500 Setting Ventilator Tidal Volume 500 Setting Ventilator Tidal Volume 500 Setting Ventilator Respiratory Rate 16 Setting Ventilator Respiratory Rate 16 Setting Ventilator Respiratory Rate 16 Setting Ventilator Respiratory Rate 16 Setting Ventilator Respiratory Rate 16 Setting Ventilator Respiratory Rate 16 Setting Ventilator Respiratory Rate 16 Setting Ventilator Respiratory Rate 16 Setting Ventilator Respiratory Rate 16 Setting Ventilator Respiratory Rate 16 Setting Ventilator Respiratory Rate 16 Setting Ventilator Respiratory Rate 16 Setting Ventilator Respiratory Rate 16 Setting Actual Respiratory Rate 18 Actual Respiratory Rate 18 Actual Respiratory Rate 14 Actual Respiratory Rate 18 Actual Respiratory Rate 24 Actual Respiratory Rate 24 Actual Respiratory Rate 19 Actual Respiratory Rate 20 Actual Respiratory Rate 20 Actual Respiratory Rate 21 Actual Respiratory Rate 18 Actual Respiratory Rate 19 Actual Respiratory Rate 18 Positive End Expiratory 5 Pressure Positive End Expiratory 5 Pressure Positive End Expiratory 8 Pressure Positive End Expiratory 5 Pressure Positive End Expiratory 5 Pressure Positive End Expiratory 5 Pressure Positive End Expiratory 5 Pressure Positive End Expiratory 5 Pressure Positive End Expiratory 5 Pressure Positive End Expiratory 5 Pressure Positive End Expiratory 5 Pressure Positive End Expiratory 5 Pressure Positive End Expiratory 5 Pressure Positive End Expiratory 5 Pressure Peak Inspiratory Airway 5 Pressure Peak Inspiratory Airway 5 Pressure Peak Inspiratory Airway 16 Pressure Peak Inspiratory Airway 5 Pressure Peak Inspiratory Airway 7.5 Pressure Peak Inspiratory Airway 7 Pressure Peak Inspiratory Airway 22 Pressure Peak Inspiratory Airway 22 Pressure Peak Inspiratory Airway 22 Pressure Peak Inspiratory Airway 22 Pressure Peak Inspiratory Airway 20 Pressure Peak Inspiratory Airway 20 Pressure Peak Inspiratory Airway 21 Pressure Results - Laboratory Findings CBC and BMP: 04/03/19 04:34 04/03/19 04:34 ABG ABG pH 7.32 pH Units (7.32-7.45) 04/03/19 04:18 ABG pCO2 46 mmHg (35-45) H 04/03/19 04:18 ABG pO2 83 mmHg (85-104) L D 04/03/19 04:18 ABG O2 Saturation 95 % (95-98) 04/03/19 04:18 PT/INR, D-dimer PT 11.4 Seconds (9.4-12.1) 04/03/19 04:34 Abnormal lab findings: Abnormal lab results RBC 4.14 M/mcL (4.19-5.50) L 04/03/19 04:34 MCV 105.6 fL (83.0-100.0) H 04/03/19 04:34 MCH 34.3 pg (28.0-33.3) H 04/03/19 04:34 MPV 9.0 fL (9.4-12.4) L 04/03/19 04:34 APTT 36.1 Seconds (26.0-36.0) H 04/03/19 04:34 ABG pH 7.26 pH Units (7.32-7.45) L 04/02/19 23:54 ABG pCO2 46 mmHg (35-45) H 04/03/19 04:18 ABG pO2 83 mmHg (85-104) L D 04/03/19 04:18 ABG O2 Saturation 100 % (95-98) H 04/02/19 23:54 ABG Base Excess -3 mEq/L (-2 to 3) L 04/03/19 04:18 Sodium 146 mEq/L (136-145) H 04/03/19 04:34 Carbon Dioxide 20 mEq/L (23-29) L 04/02/19 20:09 30 mg/dL (Neg-Trace) H 04/02/19 20:32 Trace mg/dL (Negative) H 04/02/19 20:32 3-5 per hpf (0-3) H 04/02/19 20:32 Ur Squamous Epith Cells Many per lpf (None-Few) H 04/02/19 20:32 Salicylates < 2.5 mg/dL (15.0-30.0) L 04/02/19 20:09 Acetaminophen < 10 mcg/mL (10-20) L 04/02/19 20:09 U Marijuana (THC) Screen Positive ng/mL (Cutoff = 50) H 04/02/19 20:31 Ethyl Alcohol 194 mg/dL (Less than 10) H 04/02/19 20:09 - Clinical Findings Intake & Output: Intake & Output 04/02/19 04/03/19 04/03/19 23:59 07:59 15:59 Intake Total 1013 / 1013 87 / 87 Output Total 775 / 825 50 / 825 Balance 1013 / 1013 -688 / -738 -50 / -738 Weight 78 kg Consult Discharge Plan - Plan Referrals: NONE,PCP [Primary Care Provider] - <Marlon Ling - Last Filed: 06/02/19 21:50> Date of Encounter: 04/03/19 All Systems: The remainder of the systems were reviewed and are negative Physical Examination Vital Signs: Vital Signs, Last 4 Hours Temp Pulse Resp BP Pulse Ox 04/03/19 21:25 16 135/89 95 04/03/19 21:00 64 16 130/86 93 04/03/19 20:00 69 19 112/79 93 04/03/19 19:42 20 100/72 92 04/03/19 19:30 72 04/03/19 19:10 100.4 F H 04/03/19 19:00 75 23 126/88 90 04/03/19 18:00 73 18 139/89 96 04/03/19 17:45 16 108/76 90 Ventilator Settings Ventilator Settings: Ventilator Settings, Last 8 Hours Ventilator Tidal Volume 500 Setting Ventilator Tidal Volume 500 Setting Ventilator Tidal Volume 500 Setting Ventilator Tidal Volume 500 Setting Ventilator Tidal Volume 500 Setting Ventilator Tidal Volume 500 Setting Ventilator Tidal Volume 500 Setting Ventilator Tidal Volume 500 Setting Ventilator Tidal Volume 500 Setting Ventilator Tidal Volume 500 Setting Ventilator Tidal Volume 500 Setting Ventilator Tidal Volume 500 Setting Ventilator Tidal Volume 500 Setting Ventilator Respiratory Rate 16 Setting Ventilator Respiratory Rate 16 Setting Ventilator Respiratory Rate 16 Setting Ventilator Respiratory Rate 16 Setting Ventilator Respiratory Rate 16 Setting Ventilator Respiratory Rate 16 Setting Ventilator Respiratory Rate 16 Setting Ventilator Respiratory Rate 16 Setting Ventilator Respiratory Rate 16 Setting Ventilator Respiratory Rate 16 Setting Ventilator Respiratory Rate 16 Setting Ventilator Respiratory Rate 16 Setting Ventilator Respiratory Rate 16 Setting Actual Respiratory Rate 16 Actual Respiratory Rate 163 Actual Respiratory Rate 19 Actual Respiratory Rate 20 Actual Respiratory Rate 23 Actual Respiratory Rate 18 Actual Respiratory Rate 16 Actual Respiratory Rate 16 Actual Respiratory Rate 16 Actual Respiratory Rate 16 Actual Respiratory Rate 18 Actual Respiratory Rate 16 Actual Respiratory Rate 16 Actual Respiratory Rate 8 Positive End Expiratory 8 Pressure Positive End Expiratory 8 Pressure Positive End Expiratory 8 Pressure Positive End Expiratory 8 Pressure Positive End Expiratory 8 Pressure Positive End Expiratory 8 Pressure Positive End Expiratory 8 Pressure Positive End Expiratory 8 Pressure Positive End Expiratory 8 Pressure Positive End Expiratory 8 Pressure Positive End Expiratory 8 Pressure Positive End Expiratory 8 Pressure Positive End Expiratory 8 Pressure Positive End Expiratory 8 Pressure Peak Inspiratory Airway 19 Pressure Peak Inspiratory Airway 20 Pressure Peak Inspiratory Airway 23 Pressure Peak Inspiratory Airway 18 Pressure Peak Inspiratory Airway 14 Pressure Peak Inspiratory Airway 26 Pressure Peak Inspiratory Airway 23 Pressure Peak Inspiratory Airway 22 Pressure Peak Inspiratory Airway 22 Pressure Peak Inspiratory Airway 22 Pressure Peak Inspiratory Airway 23 Pressure Peak Inspiratory Airway 23 Pressure Peak Inspiratory Airway 16 Pressure Results - Laboratory Findings CBC and BMP: 04/03/19 04:34 04/03/19 04:34 ABG ABG pH 7.32 pH Units (7.32-7.45) 04/03/19 04:18 ABG pCO2 46 mmHg (35-45) H 04/03/19 04:18 ABG pO2 83 mmHg (85-104) L D 04/03/19 04:18 ABG O2 Saturation 95 % (95-98) 04/03/19 04:18 PT/INR, D-dimer PT 11.4 Seconds (9.4-12.1) 04/03/19 04:34 Abnormal lab findings: Abnormal lab results RBC 4.14 M/mcL (4.19-5.50) L 04/03/19 04:34 MCV 105.6 fL (83.0-100.0) H 04/03/19 04:34 MCH 34.3 pg (28.0-33.3) H 04/03/19 04:34 MPV 9.0 fL (9.4-12.4) L 04/03/19 04:34 APTT 36.1 Seconds (26.0-36.0) H 04/03/19 04:34 ABG pH 7.26 pH Units (7.32-7.45) L 04/02/19 23:54 ABG pCO2 46 mmHg (35-45) H 04/03/19 04:18 ABG pO2 83 mmHg (85-104) L D 04/03/19 04:18 ABG O2 Saturation 100 % (95-98) H 04/02/19 23:54 ABG Base Excess -3 mEq/L (-2 to 3) L 04/03/19 04:18 Sodium 146 mEq/L (136-145) H 04/03/19 04:34 Carbon Dioxide 20 mEq/L (23-29) L 04/02/19 20:09 30 mg/dL (Neg-Trace) H 04/02/19 20:32 Trace mg/dL (Negative) H 04/02/19 20:32 3-5 per hpf (0-3) H 04/02/19 20:32 Ur Squamous Epith Cells Many per lpf (None-Few) H 04/02/19 20:32 Salicylates < 2.5 mg/dL (15.0-30.0) L 04/02/19 20:09 Acetaminophen < 10 mcg/mL (10-20) L 04/02/19 20:09 U Marijuana (THC) Screen Positive ng/mL (Cutoff = 50) H 04/02/19 20:31 Ethyl Alcohol 194 mg/dL (Less than 10) H 04/02/19 20:09 - Clinical Findings Intake & Output: Intake & Output 04/03/19 04/03/19 04/03/19 07:59 15:59 23:59 Intake Total 87 / 1385 1098 / 1385 200 / 1385 Output Total 775 / 1800 500 / 1800 525 / 1800 Balance -688 / -415 598 / -415 -325 / -415 - Attending Attestation I saw and evaluated this patient and my medical decision-making was reviewed with the Resident Physician. I agree with the documented findings, disposition and treatment plan as described except to the extent set forth below. We independently had [id number] contact with the patient I spent 45 minutes of Critical Care time with this patient. It involved decision making of high complexity to assess, manipulate, and support vital organ system failure and/or to prevent further life threatening deterioration of the patient's condition. The time involved in the performance of separately reportable procedures was not counted toward critical care time. Patient seen and examined at bedside Labs, radiology, chart personally reviewed. Management was reviewed during multidisciplinary critical care rounds. BANQUET COORDINATOR: Patient intubated and mechanically ventilated following commands we will transition to Precedex. Will prepare for extubation soon as his encephalopathy gets better looks like the recent findings of more most likely due to toxic/metabolic encephalopathy secondary to alcoholic intoxication Pulm: Patient has acceptable oxygenation and ventilation patient has bibasilar atelectasis with signs of aspiration pneumonia we will start broad-spectrum antibiotics otherwise to continue lung protective strategy. Patient has acceptable oxygenation and ventilation. Cards: Patient is hemodynamically stable. FEN-GI: We will try to extubate as he is ready for a spontaneous breathing trial on his encephalopathy is getting better we will keep him nothing by mouth for now . To give Thiamine and folic acid Renal: Labs and output reviewed ID: No active infectious disease issues Heme/Onc: Labs reviewed Endo: Glucose Monitored Integ/MSK: Skin Care per routine ICU Nursing Protocol to prevent ulcers. Lines: All lines examined without evidence of infection : Dispo: critically ill CODE: Full code
[2019-04-03] MEDS ORDERED: Perflutren Lipid Microsphere 1.3 ML in 0.9 % Sodium Chloride 8.7 ML IVP ONE (11:07)
--- NOTE | 2019-04-03 11:08 | Neurology - Consult Note ---
Date of Encounter: 04/03/19 Time of Encounter: 10:59 Assessment and Plan (1) Cerebral hemorrhage Current Visit: Yes Status: Acute Patient with PMH significant for chronic pain, COPD who was found unresponsive at home with reported headaches prior to admission. Initial CT of head showed no acute intracranial abnormality yesterday but repeat CT of head showed acute cerebral hemorrhage at the left occipito-parietal lobe. No prior history of HTN. Cause unclear and could be related trauma, amyloid angiopathy and underlying vascular malformation, less likely hypertensive. Patient certainly needs neurosurgical evaluation at [facility] where neurosurgery service is available. Patient is currently hemodynamically stable and discussed with the medical team and the medical members (sister) to proceed with transfer with recommendations from accepting medical facility. History of Present Illness Chief complaint: Headache and found unresponsive HPI: Mr. Mary is a 53 year old male with PMH significant for chronic headache, CRPS, COPD tobacco abuse, chronic back pain s/p left hip replacement, who was transferred from [facility] due to being found unresponsive. Patient was transferred intubated due to prolonged unreponsiveness and initial CT of head performed at [facility] was reported no acute intracranial abnormality. Per her sister, patient was having headaches yesterday prior to being evaluated at [facility] and he also developed a fever later during the day. Upon arrival the patient has remained unresponsive and she was having slight nuchal rigidity and due to the fact that he has had headaches, neurology was consulted for possible MYCOLOGIST infection and the patient was started on broad spectrum antibiotics and antiviral therapy and a repeat CT of head was obtained and surprisingly CT of head showed acute lobar hematoma at the left occipito-parietal lobe with surrounding edema. no midline shift noted. Past Med Surg Social Fam HX - Past Medical History Medical history: other Additional medical history: IRREGULAR HEARTBEAT. SMOKER. HEART MURMUR. DEVON SCULAR NECROSIS BILATERAL HIPS Psychiatric history: prior suicide attempt - Past Surgical History Surgical History: orthopedic, other, sinus surgery, other Additional surgical history: CTR RIGHT HAND, LEFT MIDDLE FINGER AMPUTATED. Bilateral hip replacements - Social History Smoking Status: Current every day smoker Smokeless Tobacco Status: No Alcohol use: occasionally Drug use: none - Family History Mother Living Status: Still Living Medications and Allergies Gabapentin [Neurontin] 800 mg PO TID 07/15/17 [History] Loratadine [Allergy Relief] 10 mg PO DAILY PRN 07/28/18 [History] Doxepin HCl 10 mg PO HS 04/02/19 [History] Allergy/AdvReac Type Severity Reaction Status Date / Time acetaminophen [From Tylenol] AdvReac Nausea Verified 07/28/18 11:23 naproxen [From Naprosyn] AdvReac Chest Pain Verified 07/28/18 11:23 All Systems: The remainder of the systems were reviewed and are negative - Constitutional Constitutional ROS IM: headache(s) (Yes), other (Currently unable to obtain, Per history patient has had headaches yesterday) - Nose, Mouth, Throat Nose, mouth and throat: other (Unable to assess due to sedation) - Cardiovascular Cardiovascular ROS IM: chest pain (No), diaphoresis (No) - Respiratory Respiratory IM: cough (No), hemoptysis ( no) - Gastrointestinal Gastrointestinal: abdominal pain (No) - Genitourinary Genitourinary ROS: difficulty urinating (No), difficulty voiding (No) - Musculoskeletal Musculoskeletal ROS IM: back pain (Yes) - Neurological Neurological ROS: abnormal gait (No), abnormal hearing (No), abnormal movements (No), radicular pain (Yes) - Psychiatric Psychiatric general PM: auditory hallucinations (No) Physical Examination - Vital Signs Vital Signs: Initial Vital Signs Temp Pulse Resp BP Pulse Ox 97.4 F L 119 19 112/69 93 04/02/19 19:21 04/02/19 19:21 04/02/19 19:21 04/02/19 19:21 04/02/19 19:21 - Constitutional General appearance: comfortable - Neurologic Sensorimotor examination: other (Unable to assess due to sedation and coma) Detailed motor examination: other (Flaccid paralyzed due to unresponsiveness and sedation) Detailed sensory examination: other (Unable to assess) Posture: other (None) Reflexes: Biceps: 1+, Triceps: 1+, Brachioradialis: 1+, Patella: 1+, Achilles: 1+ Mental Status Examination: coma Cranial nerve examination: PERRL, EOMI (Unable to assess), visual abdi intact (Unable to assess), corneal reflexes brisk symmetrically, sensory to face intact (Unable to assess), mastication intact (Unable to assess), no facial asymmetry is present, hearing is intact symmetrically (Unable to assess), soft palate elevates bilaterally upon phonation (Unable to assess), gag reflex intact, flexes SCM and trapezius muscles symmetrically with full power (Unable to assess) Results - Laboratory Findings CBC and BMP: 04/03/19 04:34 04/03/19 04:34 Abnormal lab findings: Abnormal lab results RBC 4.14 M/mcL (4.19-5.50) L 04/03/19 04:34 MCV 105.6 fL (83.0-100.0) H 04/03/19 04:34 MCH 34.3 pg (28.0-33.3) H 04/03/19 04:34 MPV 9.0 fL (9.4-12.4) L 04/03/19 04:34 APTT 36.1 Seconds (26.0-36.0) H 04/03/19 04:34 ABG pH 7.26 pH Units (7.32-7.45) L 04/02/19 23:54 ABG pCO2 46 mmHg (35-45) H 04/03/19 04:18 ABG pO2 83 mmHg (85-104) L D 04/03/19 04:18 ABG O2 Saturation 100 % (95-98) H 04/02/19 23:54 ABG Base Excess -3 mEq/L (-2 to 3) L 04/03/19 04:18 Sodium 146 mEq/L (136-145) H 04/03/19 04:34 Carbon Dioxide 20 mEq/L (23-29) L 04/02/19 20:09 30 mg/dL (Neg-Trace) H 04/02/19 20:32 Trace mg/dL (Negative) H 04/02/19 20:32 3-5 per hpf (0-3) H 04/02/19 20:32 Ur Squamous Epith Cells Many per lpf (None-Few) H 04/02/19 20:32 Salicylates < 2.5 mg/dL (15.0-30.0) L 04/02/19 20:09 Acetaminophen < 10 mcg/mL (10-20) L 04/02/19 20:09 U Marijuana (THC) Screen Positive ng/mL (Cutoff = 50) H 04/02/19 20:31 Ethyl Alcohol 194 mg/dL (Less than 10) H 04/02/19 20:09 - Diagnostic Findings Additional findings: CT OF THE HEAD WITHOUT CONTRAST 04/02/2019 8:03 pm TECHNIQUE: CT of the head was performed without the administration of intravenous contrast. Dose modulation, iterative reconstruction, and/or weight based adjustment of the mA/kV was utilized to reduce the radiation dose to as low as reasonably achievable. COMPARISON: 09/07/2015 HISTORY: ORDERING SYSTEM PROVIDED HISTORY: found down FINDINGS: BRAIN/VENTRICLES: There is no acute intracranial hemorrhage, mass effect or midline shift. No abnormal extra-axial fluid collection. The duckworth-white differentiation is maintained without evidence of an acute infarct. There is no evidence of hydrocephalus. ORBITS: The visualized portion of the orbits demonstrate no acute abnormality. SINUSES: Bilateral paranasal sinus mucosal thickening. The mastoid air cells are well aerated. SOFT TISSUES/SKULL: No acute abnormality of the visualized skull or soft tissues. CT/CT head/brain wo con IMPRESSION: No acute intracranial abnormality. Paranasal sinus mucosal disease. D/ / Castillo Mooney / Castillo Mooney Interpreting Provider: Castillo Mooney Consult Discharge Plan - Plan Referrals: NONE,PCP [Primary Care Provider] -
--- NOTE | 2019-04-03 15:42 | Neurology - Consult Note ---
Date of Encounter: 04/03/19 Time of Encounter: 12:30 Assessment and Plan (1) Alcohol intoxication Current Visit: Yes Status: Acute Patient was found unresponsive at home, details unknown, however, patient was found to have elevated ethyl alcohol indicating alcohol intoxication and along with positive THC in the urine these likely the cause of his unresponsiveness at home and initial CT of head showed no acute intracranial abnormality and it was reported that the patient was agitated prior to mechanical intubation so there are no indication of MAILING SPECIALIST pathology. At the same time now the patient is currently being intubated and sedated therefore neurological status difficult to assess. Would recommend continue medical and supportive care at this time and will follow the patient along. Agree with DT prophylaxis but currently there is no indication for antiepileptic therapy. CT of head images are reviewed, so as laboratory studies, CBC and CMP. No evidence of MAILING SPECIALIST infection and no significant metabolic abnormalities. Please continue medical and supportive care. Will follow in AM. Qualifiers: Complication of substance-induced condition: with unspecified complication Qualified Code(s): F10.929 - Alcohol use, unspecified with intoxication, unspecified History of Present Illness Chief complaint: Unresponsiveness HPI: Mr. Mary is a 53 year old male with PMH significant for chronic pain, COPD, sinusitis, CRPS, history of total left knee replaceent, tobacco dependence, who presented to the ER after being found unresponsive. Detailed information regarding HPI limited due to no family members or witness available to interview. Patient is currently intubated and sedated. Patient was found to be intoxicated with alcohol with ethyl alcohol level of 194 in the ER and UDS was positive for THC. Neurology was consulted regarding for unresponsiveness, patient is currently being treated with alcohol intoxication. CT of head in the ER reviewed and it showed no acute intracranial abnormality. Patient is currently sedated and intubated and neurological status difficult to assess. It was reported by the nursing staff that the patient was agitated and had to to intubated and sedated. No focal weakness reported. No seizure activity reported. Past Med Surg Social Fam HX - Past Medical History Medical history: other Additional medical history: IRREGULAR HEARTBEAT. SMOKER. HEART MURMUR. AVASCULAR NECROSIS BILATERAL HIPS Psychiatric history: prior suicide attempt - Past Surgical History Surgical History: orthopedic, other, sinus surgery, other Additional surgical history: CTR RIGHT HAND, LEFT MIDDLE FINGER AMPUTATED. Bilateral hip replacements - Social History Smoking Status: Current every day smoker Smokeless Tobacco Status: No Alcohol use: occasionally Drug use: none - Family History Mother Living Status: Still Living Medications and Allergies Gabapentin [Neurontin] 800 mg PO TID 07/15/17 [History] Loratadine [Allergy Relief] 10 mg PO DAILY PRN 07/28/18 [History] Doxepin HCl 10 mg PO HS 04/02/19 [History] Allergy/AdvReac Type Severity Reaction Status Date / Time acetaminophen [From Tylenol] AdvReac Nausea Verified 07/28/18 11:23 naproxen [From Naprosyn] AdvReac Chest Pain Verified 07/28/18 11:23 All Systems: The remainder of the systems were reviewed and are negative - Constitutional Constitutional ROS IM: anorexia (No ), chills (No), fever(s) (No), other (Per history, unable to obtain at this time) - Nose, Mouth, Throat Nose, mouth and throat: dizziness (No), other (Unable to obtain) - Cardiovascular Cardiovascular ROS IM: other (Unable to obtain at this time) - Respiratory Respiratory IM: dyspnea on exertion (Yes), other - Gastrointestinal Gastrointestinal: other (Unable to obtain) - Musculoskeletal Musculoskeletal ROS IM: other (Unable to obtain) - Neurological Neurological ROS: other (Patient is unresponsive) Physical Examination - Vital Signs Vital Signs: Initial Vital Signs Temp Pulse Resp BP Pulse Ox 97.4 F L 119 19 112/69 93 04/02/19 19:21 04/02/19 19:21 04/02/19 19:21 04/02/19 19:21 04/02/19 19:21 - Constitutional General appearance: comfortable, other (Sedated and intubated) - Neurologic Sensorimotor examination: other (Unable to assess) Detailed motor examination: other (Unable to assess, no gross weakness noted) Detailed sensory examination: other (Unable to assess) Reflex and gait examination: other (Unable to assess due to coma and sedation) Reflexes: Biceps: 0, Triceps: 0, Brachioradialis: 0, Patella: 0, Achilles: 0 Mental Status Examination: coma (Patient is sedated) Cranial nerve examination: PERRL, EOMI (Unable to assess), visual abdi intact (Unable to assess), corneal reflexes brisk symmetrically, sensory to face intact (Unable to assess), no facial asymmetry is present (No), no dysarthria (Unble to assess), hearing is intact symmetrically (Unable to assess) Results - Laboratory Findings CBC and BMP: 04/03/19 04:34 04/03/19 04:34 Abnormal lab findings: Abnormal lab results RBC 4.14 M/mcL (4.19-5.50) L 04/03/19 04:34 MCV 105.6 fL (83.0-100.0) H 04/03/19 04:34 MCH 34.3 pg (28.0-33.3) H 04/03/19 04:34 MPV 9.0 fL (9.4-12.4) L 04/03/19 04:34 APTT 36.1 Seconds (26.0-36.0) H 04/03/19 04:34 ABG pH 7.26 pH Units (7.32-7.45) L 04/02/19 23:54 ABG pCO2 46 mmHg (35-45) H 04/03/19 04:18 ABG pO2 83 mmHg (85-104) L D 04/03/19 04:18 ABG O2 Saturation 100 % (95-98) H 04/02/19 23:54 ABG Base Excess -3 mEq/L (-2 to 3) L 04/03/19 04:18 Sodium 146 mEq/L (136-145) H 04/03/19 04:34 Carbon Dioxide 20 mEq/L (23-29) L 04/02/19 20:09 30 mg/dL (Neg-Trace) H 04/02/19 20:32 Trace mg/dL (Negative) H 04/02/19 20:32 3-5 per hpf (0-3) H 04/02/19 20:32 Ur Squamous Epith Cells Many per lpf (None-Few) H 04/02/19 20:32 Salicylates < 2.5 mg/dL (15.0-30.0) L 04/02/19 20:09 Acetaminophen < 10 mcg/mL (10-20) L 04/02/19 20:09 U Marijuana (THC) Screen Positive ng/mL (Cutoff = 50) H 04/02/19 20:31 Ethyl Alcohol 194 mg/dL (Less than 10) H 04/02/19 20:09 - Diagnostic Findings Additional findings: CT OF THE HEAD WITHOUT CONTRAST 04/02/2019 8:03 pm TECHNIQUE: CT of the head was performed without the administration of intravenous contrast. Dose modulation, iterative reconstruction, and/or weight based adjustment of the mA/kV was utilized to reduce the radiation dose to as low as reasonably achievable. COMPARISON: 09/07/2015 HISTORY: ORDERING SYSTEM PROVIDED HISTORY: found down FINDINGS: BRAIN/VENTRICLES: There is no acute intracranial hemorrhage, mass effect or midline shift. No abnormal extra-axial fluid collection. The duckworth-white differentiation is maintained without evidence of an acute infarct. There is no evidence of hydrocephalus. ORBITS: The visualized portion of the orbits demonstrate no acute abnormality. SINUSES: Bilateral paranasal sinus mucosal thickening. The mastoid air cells are well aerated. SOFT TISSUES/SKULL: No acute abnormality of the visualized skull or soft tissues. CT/CT head/brain wo con IMPRESSION: No acute intracranial abnormality. Paranasal sinus mucosal disease. D/ / Castillo Mooney / Castillo Mooney Interpreting Provider: Castillo Mooney OF THE CERVICAL SPINE WITHOUT CONTRAST 04/02/2019 8:04 pm TECHNIQUE: CT of the cervical spine was performed without the administration of intravenous contrast. Multiplanar reformatted images are provided for review. Dose modulation, iterative reconstruction, and/or weight based adjustment of the mA/kV was utilized to reduce the radiation dose to as low as reasonably achievable. COMPARISON: None. HISTORY: ORDERING SYSTEM PROVIDED HISTORY: found down FINDINGS: BONES/ALIGNMENT: There is no evidence of an acute cervical spine fracture. There is normal alignment of the cervical spine. DEGENERATIVE CHANGES: Mild to moderate degenerative disc disease is seen at C4-C5, C5-C6, and C6-C7. Findings are associated with endplate sclerosis and spurring. No significant facet arthropathy. SOFT TISSUES: There is no prevertebral soft tissue swelling. Other: Severe emphysematous changes are present. Endotracheal tube is identified. Partial visualization of opacities in the nasopharynx and oropharynx. CT/CT cervical spine wo con IMPRESSION: No acute abnormality of the cervical spine. Mild to moderate multilevel degenerative changes at C4 through C7. D/ / 04/02/2019 20:16:52 Michelle Diggs MD / bcarter Interpreting Provider: Michelle Diggs MD Consult Discharge Plan - Plan Referrals: NONE,PCP [Primary Care Provider] -
[2019-04-03] MEDS: Dexmedetomidine HCl 400 MCG/100 ML MLS IVC SCH ×2 (17:16→22:24)
[2019-04-03] MEDS ORDERED: Thiamine (B-1) 100 MG, Folic Acid 1 MG, MVI, adult with vitamin K 10 ML in 0.9 % Sodi... IVPB SCH (18:00)
[2019-04-04] MEDS: Artificial Tears SOLN 15 ML BOTTLE BOTH EYES SCH ×3 (00:06→09:55)
[2019-04-04] MEDS: Piperacillin/Tazobactam 3.375 GM in 0.9 % Sodium Chloride Mini Bag 100 ML IVPB SCH ×2 (00:07→09:55)
[2019-04-04] MEDS: *HR* Heparin 5,000 UNIT/ML VIAL SQ SCH ×2 (00:10→09:55)
[2019-04-04] MEDS: 0.9 % Sodium Chloride 1,000 ML IVC SCH ×2 (00:12→05:28)
[2019-04-04] MEDS: FentaNYL (PF) 1,000 MCG in 0.9 % Sodium Chloride 80 ML IVC SCH (01:10)
[2019-04-04] MEDS: Dexmedetomidine HCl 400 MCG/100 ML MLS IVC SCH (03:17)
[2019-04-04 04:20] LABS: Basophils % 0.4 %; Eosinophils # 0.1 K/mcL (0.0-0.6); Eosinophils % 0.9 %; Hematocrit 42.5 % (37.5-50.1); Hemoglobin 13.9 g/dL (12.9-16.9); Immature Granulocytes % 0.4 % (0-4); Lymphocytes % 12.9 %; Mean Corpuscular HGB Conc 32.7 g/dL (31.6-35.5); Mean Corpuscular Hemoglobin 34.9 pg (28.0-33.3); Mean Corpuscular Volume 106.8 fL (83.0-100.0); Mean Platelet Volume 9.7 fL (9.4-12.4); Monocytes # 0.6 K/mcL (0.0-1.3); Monocytes % 7.2 %; Neutrophils # 5.9 K/mcL (1.6-8.9); Platelet Count 169 K/mcL (140-400); Red Blood Count 3.98 M/mcL (4.19-5.50); Red Cell Distribution Width 13.2 % (11.5-14.5); Segmented Neutrophils % 78.2 %
[2019-04-04 04:29] LABS: ABG Base Excess -3 mEq/L (-2 to 3); ABG HCO3 23 mEq/L (21-27); ABG Oxygen Saturation 94 % (95-98); ABG PCO2 46 mmHg (35-45); ABG PH 7.32 pH Units (7.32-7.45); ABG PO2 76 mmHg (85-104); ABG TCO2 25 mEq/L (20-26); Blood Gas Modality ASSIST CONTROL; Blood Gas PEEP 8 cm H2O; Blood Gas Respiration Rate 16; Blood Gas VT 500 cc
[2019-04-04 04:39] LABS: Alanine Aminotransferase 17 Units/L (7-52); Albumin 3.6 g/dL (3.5-5.7); Albumin/Globulin Ratio 1.3 (1.1-2.2); Alkaline Phosphatase 64 Units/L (34-104); Aspartate Amino Transferase 22 Units/L (13-39); BUN/Creatinine Ratio 13 (6-26); Bilirubin,Direct 0.2 mg/dL (0.0-0.2); Bilirubin,Indirect 0.7 mg/dL (0.0-1.2); Bilirubin,Total 0.9 mg/dL (0.3-1.0); Blood Urea Nitrogen 7 mg/dL (6-20); Calcium 9.1 mg/dL (8.6-10.3); Carbon Dioxide 23 mEq/L (23-29); Chloride 107 mEq/L (98-107); Globulin 2.8 g/dL (2.4-3.5); Glucose 124 mg/dL (70-105); Osmolality,Calculated 289 (280-300); Potassium 4.1 mEq/L (3.5-5.1); Sodium 140 mEq/L (136-145); Total Protein 6.4 g/dL (6.4-8.9); eGFR For Non-African Americans > 60 (> 60)
[2019-04-04] MEDS: Pantoprazole 40 MG VIAL IVP SCH (05:27)
--- NOTE | 2019-04-04 07:40 | Pulmonology Progress Note ---
<Johnathan Henley - Last Filed: 04/04/19 07:40> Date of Encounter: 04/04/19 Time of Encounter: 07:20 Objective PUL Vital signs: Last Vital Signs Temp 97.1 F L 04/04/19 03:16 Pulse 52 04/04/19 06:00 Resp 16 04/04/19 07:35 BP 114/79 04/04/19 06:00 Pulse Ox 98 04/04/19 07:35 Ventilator Settings Ventilator Settings: Ventilator Settings, Last 8 Hours Ventilator Tidal Volume 500 Setting Ventilator Tidal Volume 500 Setting Ventilator Tidal Volume 500 Setting Ventilator Tidal Volume 500 Setting Ventilator Tidal Volume 500 Setting Ventilator Tidal Volume 500 Setting Ventilator Tidal Volume 500 Setting Ventilator Tidal Volume 500 Setting Ventilator Tidal Volume 500 Setting Ventilator Tidal Volume 500 Setting Ventilator Tidal Volume 500 Setting Ventilator Tidal Volume 500 Setting Ventilator Respiratory Rate 16 Setting Ventilator Respiratory Rate 16 Setting Ventilator Respiratory Rate 16 Setting Ventilator Respiratory Rate 16 Setting Ventilator Respiratory Rate 16 Setting Ventilator Respiratory Rate 16 Setting Ventilator Respiratory Rate 16 Setting Ventilator Respiratory Rate 16 Setting Ventilator Respiratory Rate 16 Setting Ventilator Respiratory Rate 16 Setting Ventilator Respiratory Rate 16 Setting Ventilator Respiratory Rate 16 Setting Actual Respiratory Rate 16 Actual Respiratory Rate 16 Actual Respiratory Rate 16 Actual Respiratory Rate 16 Actual Respiratory Rate 16 Actual Respiratory Rate 16 Actual Respiratory Rate 16 Actual Respiratory Rate 16 Actual Respiratory Rate 16 Actual Respiratory Rate 16 Actual Respiratory Rate 16 Positive End Expiratory 8 Pressure Positive End Expiratory 8 Pressure Positive End Expiratory 8 Pressure Positive End Expiratory 8 Pressure Positive End Expiratory 8 Pressure Positive End Expiratory 8 Pressure Positive End Expiratory 8 Pressure Positive End Expiratory 8 Pressure Positive End Expiratory 8 Pressure Positive End Expiratory 8 Pressure Positive End Expiratory 8 Pressure Positive End Expiratory 8 Pressure Peak Inspiratory Airway 23 Pressure Peak Inspiratory Airway 21 Pressure Peak Inspiratory Airway 21 Pressure Peak Inspiratory Airway 21 Pressure Peak Inspiratory Airway 21 Pressure Peak Inspiratory Airway 21 Pressure Peak Inspiratory Airway 22 Pressure Peak Inspiratory Airway 22 Pressure Peak Inspiratory Airway 23 Pressure Peak Inspiratory Airway 22 Pressure Peak Inspiratory Airway 24 Pressure Results - Laboratory Findings CBC and BMP: 04/04/19 03:48 04/04/19 03:48 ABG ABG pH 7.32 pH Units (7.32-7.45) 04/04/19 04:26 ABG pCO2 46 mmHg (35-45) H 04/04/19 04:26 ABG pO2 76 mmHg (85-104) L 04/04/19 04:26 ABG O2 Saturation 94 % (95-98) L 04/04/19 04:26 PT/INR, D-dimer PT 11.4 Seconds (9.4-12.1) 04/03/19 04:34 Abnormal lab findings: Abnormal lab results RBC 3.98 M/mcL (4.19-5.50) L 04/04/19 03:48 MCV 106.8 fL (83.0-100.0) H 04/04/19 03:48 MCH 34.9 pg (28.0-33.3) H 04/04/19 03:48 MPV 9.0 fL (9.4-12.4) L 04/03/19 04:34 APTT 36.1 Seconds (26.0-36.0) H 04/03/19 04:34 ABG pH 7.26 pH Units (7.32-7.45) L 04/02/19 23:54 ABG pCO2 46 mmHg (35-45) H 04/04/19 04:26 ABG pO2 76 mmHg (85-104) L 04/04/19 04:26 ABG O2 Saturation 94 % (95-98) L 04/04/19 04:26 ABG Base Excess -3 mEq/L (-2 to 3) L 04/04/19 04:26 Sodium 146 mEq/L (136-145) H 04/03/19 04:34 Carbon Dioxide 20 mEq/L (23-29) L 04/02/19 20:09 0.54 mg/dL (0.70-1.30) L 04/04/19 03:48 Glucose 124 mg/dL (70-105) H 04/04/19 03:48 POC Glucose 109 mg/dL (70-99) H 04/04/19 06:24 30 mg/dL (Neg-Trace) H 04/02/19 20:32 Trace mg/dL (Negative) H 04/02/19 20:32 3-5 per hpf (0-3) H 04/02/19 20:32 Ur Squamous Epith Cells Many per lpf (None-Few) H 04/02/19 20:32 Salicylates < 2.5 mg/dL (15.0-30.0) L 04/02/19 20:09 Acetaminophen < 10 mcg/mL (10-20) L 04/02/19 20:09 U Marijuana (THC) Screen Positive ng/mL (Cutoff = 50) H 04/02/19 20:31 Ethyl Alcohol 194 mg/dL (Less than 10) H 04/02/19 20:09 - Microbiology Findings Microbiology Findings: Microbiology, Last 48 Hours 04/03/19 23:32 Blood Culture - Preliminary Peripheral Venipuncture Culture is incubating and being continuously monitored for growth. Final report to follow. 04/03/19 23:32 Blood Culture - Preliminary Peripheral Venipuncture Culture is incubating and being continuously monitored for growth. Final report to follow. - Clinical Findings Intake & Output: Intake & Output 04/03/19 04/03/19 04/04/19 15:59 23:59 07:59 Intake Total 1098 / 1996.2 811.2 / 1996.2 300 / 300 Output Total 500 / 1800 525 / 1800 385 / 385 Balance 598 / 196.2 286.2 / 196.2 -85 / -85 Weight 82.1 kg Consult Discharge Plan - Plan Referrals: NONE,PCP [Primary Care Provider] - <Tatyana Mejia - Last Filed: 04/04/19 10:05> Date of Encounter: 04/04/19 Objective PUL Vital signs: Last Vital Signs Temp 97.9 F 04/04/19 07:10 Pulse 69 04/04/19 09:00 Resp 15 04/04/19 09:25 BP 112/78 04/04/19 09:00 Pulse Ox 95 04/04/19 09:25 Ventilator Settings Ventilator Settings: Ventilator Settings, Last 8 Hours Ventilator Tidal Volume 500 Setting Ventilator Tidal Volume 500 Setting Ventilator Tidal Volume 500 Setting Ventilator Tidal Volume 500 Setting Ventilator Tidal Volume 500 Setting Ventilator Tidal Volume 500 Setting Ventilator Tidal Volume 500 Setting Ventilator Tidal Volume 500 Setting Ventilator Tidal Volume 500 Setting Ventilator Tidal Volume 500 Setting Ventilator Respiratory Rate 16 Setting Ventilator Respiratory Rate 16 Setting Ventilator Respiratory Rate 16 Setting Ventilator Respiratory Rate 16 Setting Ventilator Respiratory Rate 16 Setting Ventilator Respiratory Rate 16 Setting Ventilator Respiratory Rate 16 Setting Ventilator Respiratory Rate 16 Setting Ventilator Respiratory Rate 16 Setting Ventilator Respiratory Rate 16 Setting Actual Respiratory Rate 15 Actual Respiratory Rate 18 Actual Respiratory Rate 18 Actual Respiratory Rate 16 Actual Respiratory Rate 16 Actual Respiratory Rate 16 Actual Respiratory Rate 16 Actual Respiratory Rate 16 Actual Respiratory Rate 16 Actual Respiratory Rate 16 Positive End Expiratory 8 Pressure Positive End Expiratory 8 Pressure Positive End Expiratory 8 Pressure Positive End Expiratory 8 Pressure Positive End Expiratory 8 Pressure Positive End Expiratory 8 Pressure Positive End Expiratory 8 Pressure Positive End Expiratory 8 Pressure Positive End Expiratory 8 Pressure Positive End Expiratory 8 Pressure Positive End Expiratory 8 Pressure Peak Inspiratory Airway 16 Pressure Peak Inspiratory Airway 16 Pressure Peak Inspiratory Airway 21 Pressure Peak Inspiratory Airway 23 Pressure Peak Inspiratory Airway 21 Pressure Peak Inspiratory Airway 21 Pressure Peak Inspiratory Airway 21 Pressure Peak Inspiratory Airway 21 Pressure Peak Inspiratory Airway 21 Pressure Peak Inspiratory Airway 22 Pressure Results - Laboratory Findings CBC and BMP: 04/04/19 03:48 04/04/19 03:48 ABG ABG pH 7.32 pH Units (7.32-7.45) 04/04/19 04:26 ABG pCO2 46 mmHg (35-45) H 04/04/19 04:26 ABG pO2 76 mmHg (85-104) L 04/04/19 04:26 ABG O2 Saturation 94 % (95-98) L 04/04/19 04:26 PT/INR, D-dimer PT 11.4 Seconds (9.4-12.1) 04/03/19 04:34 Abnormal lab findings: Abnormal lab results RBC 3.98 M/mcL (4.19-5.50) L 04/04/19 03:48 MCV 106.8 fL (83.0-100.0) H 04/04/19 03:48 MCH 34.9 pg (28.0-33.3) H 04/04/19 03:48 MPV 9.0 fL (9.4-12.4) L 04/03/19 04:34 APTT 36.1 Seconds (26.0-36.0) H 04/03/19 04:34 ABG pH 7.26 pH Units (7.32-7.45) L 04/02/19 23:54 ABG pCO2 46 mmHg (35-45) H 04/04/19 04:26 ABG pO2 76 mmHg (85-104) L 04/04/19 04:26 ABG O2 Saturation 94 % (95-98) L 04/04/19 04:26 ABG Base Excess -3 mEq/L (-2 to 3) L 04/04/19 04:26 Sodium 146 mEq/L (136-145) H 04/03/19 04:34 Carbon Dioxide 20 mEq/L (23-29) L 04/02/19 20:09 0.54 mg/dL (0.70-1.30) L 04/04/19 03:48 Glucose 124 mg/dL (70-105) H 04/04/19 03:48 POC Glucose 109 mg/dL (70-99) H 04/04/19 06:24 30 mg/dL (Neg-Trace) H 04/02/19 20:32 Trace mg/dL (Negative) H 04/02/19 20:32 3-5 per hpf (0-3) H 04/02/19 20:32 Ur Squamous Epith Cells Many per lpf (None-Few) H 04/02/19 20:32 Salicylates < 2.5 mg/dL (15.0-30.0) L 04/02/19 20:09 Acetaminophen < 10 mcg/mL (10-20) L 04/02/19 20:09 U Marijuana (THC) Screen Positive ng/mL (Cutoff = 50) H 04/02/19 20:31 Ethyl Alcohol 194 mg/dL (Less than 10) H 04/02/19 20:09 - Microbiology Findings Microbiology Findings: Microbiology, Last 48 Hours 04/03/19 23:32 Blood Culture - Preliminary Peripheral Venipuncture Culture is incubating and being continuously monitored for growth. Final report to follow. 04/03/19 23:32 Blood Culture - Preliminary Peripheral Venipuncture Culture is incubating and being continuously monitored for growth. Final report to follow. - Clinical Findings Intake & Output: Intake & Output 04/03/19 04/04/19 04/04/19 23:59 07:59 15:59 Intake Total 811.2 / 1996.2 300 / 300 Output Total 525 / 1800 535 / 535 Balance 286.2 / 196.2 -235 / -235 Weight 82.1 kg - Attending Attestation I examined this patient and my medical decision-making was reviewed with the Resident Physician. I agree with the documented findings, disposition and treatment plan as described except to the extent set forth below. Patient seen and examined. Labs, radiology, chart personally reviewed. Agree with resident's history and physical, assessment, plan with following comments: PATIENTS TRANSPORTER: Patient follows commands, Pulmonary: Acceptable oxygenation and ventilation Cardiovascular: stable GI: Nutrition per dietary and GI prophylaxis per routine Heme: DVT prophylaxis per routine ID: Continue antibiotics and plan to de-escalation Renal; urine out put and renal function reviewed Endorcine: blood glucose is monitored Lines: all lines checked and no evidence of infections Skin: skin care to prevent pressure ulcers per nursing routine care Dispo: Code: Full. Prognosis. I spent 33 min of Critical Care time with this patient. It involved decision making of high complexity to assess, manipulate, and support vital organ system failure and/or to prevent further life threatening deterioration of the patient's condition. The time involved in the performance of separately rep ortable procedures was not counted toward critical care time.
[2019-04-04] MEDS: Chlorhexidine Rinse 15 ML MOUTHWASH MM SCH (09:55)
--- NOTE | 2019-04-04 10:01 | Neurology Progress Note ---
Date of Encounter: 04/04/19 Time of Encounter: 08:30 Assessment and Plan (1) Alcohol intoxication Current Visit: Yes Status: Acute Patient was found unresponsive at home, details unknown, however, patient was found to have elevated ethyl alcohol indicating alcohol intoxication and along with positive THC in the urine these likely the cause of his unresponsiveness at home and initial CT of head showed no acute intracranial abnormality and it was reported that the patient was agitated prior to mechanical intubation so there are no indication of HIGH LIGHTER pathology. Patient is awake and alert and follows command while being intubated today. There is no focal neurological deficits. Would recommend continuing medical and supportive care. Will sign off from neurology perspective. I would re-evaluate the patient at your request. Qualifiers: Complication of substance-induced condition: with unspecified complication Qualified Code(s): F10.929 - Alcohol use, unspecified with intoxication, unspeci fied Subjective Principal diagnosis: unresponsiveness and alcohol intoxication Interval history: Patient is seen and examined. 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 reports no seizure activity overnight. Objective - Constitutional Vitals: Temp Pulse Resp BP Pulse Ox 97.9 F 69 15 112/78 95 04/04/19 07:10 04/04/19 09:00 04/04/19 09:25 04/04/19 09:00 04/04/19 09:25 - Neurological Exam Sensorimotor examination: Present: other (Grossly intact) Motor examination - right side: 5/5: deltoids, biceps, triceps, wrist flexion, wrist extension, wing mailer machine operator, hip flexors, tibialis Anterior, quadriceps, toe extension (EHL), plantarflexion Motor examination - left side: 5/5: deltoids, biceps, triceps, wrist flexion, wrist extension, hip flexors, wing mailer machine operator, quadriceps, tibialis Anterior, toe extension (EHL), plantarflexion Sensation intact: Present: other (Unable to assess) Posture: Present: other (None) Reflex and gait examination: intact (Gait not assessed) Reflexes: Biceps: 1+, Triceps: 1+, Brachioradialis: 1+, Patella: 1+, Achilles: 1+ Mental Status Examination: Present: awake, alert, oriented to person (Unable to assess, patient still intubated), drowsy, opens eyes to noxious stimulation, makes eye contact, follows simple commands, localizes noxious stimulation, no spontaneous eye opening to voice or tactile stimulation, grimmacing Cranial nerve examination: Present: PERRL, EOMI, visual abdi intact (Unable to assess), corneal reflexes brisk symmetrically, sensory to face intact, mastication intact, no facial asymmetry is present, no dysarthria (Unble to assess), hearing is intact symmetrically, gag reflex intact, tongue protrudes midline (Unable to assess) Results - Laboratory Findings CBC and BMP: 04/04/19 03:48 04/04/19 03:48 Abnormal lab findings: Abnormal lab results RBC 3.98 M/mcL (4.19-5.50) L 04/04/19 03:48 MCV 106.8 fL (83.0-100.0) H 04/04/19 03:48 MCH 34.9 pg (28.0-33.3) H 04/04/19 03:48 MPV 9.0 fL (9.4-12.4) L 04/03/19 04:34 APTT 36.1 Seconds (26.0-36.0) H 04/03/19 04:34 ABG pH 7.26 pH Units (7.32-7.45) L 04/02/19 23:54 ABG pCO2 46 mmHg (35-45) H 04/04/19 04:26 ABG pO2 76 mmHg (85-104) L 04/04/19 04:26 ABG O2 Saturation 94 % (95-98) L 04/04/19 04:26 ABG Base Excess -3 mEq/L (-2 to 3) L 04/04/19 04:26 Sodium 146 mEq/L (136-145) H 04/03/19 04:34 Carbon Dioxide 20 mEq/L (23-29) L 04/02/19 20:09 0.54 mg/dL (0.70-1.30) L 04/04/19 03:48 Glucose 124 mg/dL (70-105) H 04/04/19 03:48 POC Glucose 109 mg/dL (70-99) H 04/04/19 06:24 30 mg/dL (Neg-Trace) H 04/02/19 20:32 Trace mg/dL (Negative) H 04/02/19 20:32 3-5 per hpf (0-3) H 04/02/19 20:32 Ur Squamous Epith Cells Many per lpf (None-Few) H 04/02/19 20:32 Salicylates < 2.5 mg/dL (15.0-30.0) L 04/02/19 20:09 Acetaminophen < 10 mcg/mL (10-20) L 04/02/19 20:09 U Marijuana (THC) Screen Positive ng/mL (Cutoff = 50) H 04/02/19 20:31 Ethyl Alcohol 194 mg/dL (Less than 10) H 04/02/19 20:09 Consult Discharge Plan - Plan Referrals: NONE,PCP [Primary Care Provider] -
[2019-04-04 10:13] VITALS: BP 116/80
--- NOTE | 2019-04-04 10:54 | Discharge Summary ---
<Johnathan Henley - Last Filed: 04/04/19 11:22> - NOTES TO OUTPATIENT PROVIDER Notes to Outpatient Provider: Follow-up with outpatient primary care provider within the next week. Orders not resulted at time of discharge: Pending orders 04/02/19 19:38 ECG 12 lead ECG [ECG] Stat 04/03/19 20:56 Culture,Sputum with Gram Stain [RM] Routine 04/03/19 23:32 Culture,Blood [BC] Routine 04/05/19 21:45 Arterial Blood Gas DAILY 04/06/19 21:45 Arterial Blood Gas DAILY 04/07/19 21:45 Arterial Blood Gas DAILY 04/08/19 21:45 Arterial Blood Gas DAILY 04/09/19 21:45 Arterial Blood Gas DAILY 04/10/19 21:45 Arterial Blood Gas DAILY 04/11/19 21:45 Arterial Blood Gas DAILY Date of Encounter: 04/04/19 Time of Encounter: 09:22 - Discharge Medications Prescriptions: New Amoxicillin/Clavulanate [Augmentin] 875 mg PO BIDWM #14 tablet Continued Gabapentin [Neurontin] 800 mg PO TID Loratadine [Allergy Relief] 10 mg PO DAILY PRN PRN Reason: Allergy Symptoms Doxepin HCl 10 mg PO HS Home Medications: Gabapentin [Neurontin] 800 mg PO TID 07/15/17 [History] Loratadine [Allergy Relief] 10 mg PO DAILY PRN 07/28/18 [History] Doxepin HCl 10 mg PO HS 04/02/19 [History] Amoxicillin/Clavulanate [Augmentin] 875 mg PO BIDWM #14 tablet 04/04/19 [Rx] Allergies/Adverse Reactions: Allergy/AdvReac Type Severity Reaction Status Date / Time acetaminophen [From Tylenol] AdvReac Nausea Verified 07/28/18 11:23 naproxen [From Naprosyn] AdvReac Chest Pain Verified 07/28/18 11:23 Labs on day of discharge: Labs from last 24 hours 04/04/19 04/04/19 04/04/19 06:24 04:26 03:48 WBC RBC Hgb Hct MCV MCH MCHC RDW Plt Count MPV Immature Gran % Seg Neutrophils % Lymphocytes % Monocytes % Eosinophils % Basophils % Neutrophils # Lymphocytes # Monocytes # Eosinophils # Basophils # Sample Site R Radial ABG pH 7.32 ABG pCO2 46 H ABG pO2 76 L ABG HCO3 23 ABG Total CO2 25 ABG O2 Saturation 94 L ABG Base Excess -3 L Respiration Rate 16 O2 Delivery Device Adult Vent Blood Gas Modality ASSIST CONTROL Inspired O2 40.0 Tidal Volume 500 PEEP 8 Sodium 140 Potassium 4.1 Chloride 107 Carbon Dioxide 23 BUN 7 Creatinine 0.54 L Est GFR ( Amer) > 60 Est GFR (Non-Af Amer) > 60 BUN/Creatinine Ratio 13 Glucose 124 H POC Glucose 109 H Calculated Osmolality 289 Calcium 9.1 Total Bilirubin 0.9 Direct Bilirubin 0.2 Indirect Bilirubin 0.7 AST 22 ALT 17 Alkaline Phosphatase 64 Serum Total Protein 6.4 Albumin 3.6 Globulin 2.8 Albumin/Globulin Ratio 1.3 04/04/19 04/04/19 04/03/19 03:48 01:01 11:25 WBC 7.6 RBC 3.98 L Hgb 13.9 Hct 42.5 MCV 106.8 H MCH 34.9 H MCHC 32.7 RDW 13.2 Plt Count 169 MPV 9.7 Immature Gran % 0.4 Seg Neutrophils % 78.2 Lymphocytes % 12.9 Monocytes % 7.2 Eosinophils % 0.9 Basophils % 0.4 Neutrophils # 5.9 Lymphocytes # 1.0 Monocytes # 0.6 Eosinophils # 0.1 Basophils # 0.0 Sample Site ABG pH ABG pCO2 ABG pO2 ABG HCO3 ABG Total CO2 ABG O2 Saturation ABG Base Excess Respiration Rate O2 Delivery Device Blood Gas Modality Inspired O2 Tidal Volume PEEP Sodium Potassium Chloride Carbon Dioxide BUN Creatinine Est GFR ( Amer) Est GFR (Non-Af Amer) BUN/Creatinine Ratio Glucose POC Glucose 123 H 86 Calculated Osmolality Calcium Total Bilirubin Direct Bilirubin Indirect Bilirubin AST ALT Alkaline Phosphatase Serum Total Protein Albumin Globulin Albumin/Globulin Ratio Preliminary micro results at discharge 04/03/19 23:32 Blood Culture - Preliminary Peripheral Venipuncture Culture is incubating and being continuously monitored for growth. Final report to follow. 04/03/19 23:32 Blood Culture - Preliminary Peripheral Venipuncture Culture is incubating and being continuously monitored for growth. Final report to follow. - Impressions ITS Impressions Chest X-Ray 04/02/19 19:37 IMPRESSION: 1. Endotracheal tube tip terminates 5.1 cm above the phil. 2. Lower lung volumes with basilar atelectasis. D/ / 04/02/2019 19:59:10 Michelle Diggs MD / elliott Interpreting Provider: Michelle Diggs MD Cervical Spine CT 04/02/19 19:38 IMPRESSION: No acute abnormality of the cervical spine. Mild to moderate multilevel degenerative changes at C4 through C7. D/ / 04/02/2019 20:16:52 Michelle Diggs MD / elliott Interpreting Provider: Michelle Diggs MD Head CT 04/02/19 19:38 IMPRESSION: No acute intracranial abnormality. Paranasal sinus mucosal disease. D/ / Castillo Mooney / Castillo Mooney Interpreting Provider: Castillo Mooney Echocardiogram 04/02/19 21:37 Impressions: LVEF 60-65%. Indeterminate diastolic function. Normal right ventricular structure and function. Mild tricuspid regurgitation. No pulmonary hypertension. Left Ventricular Wall Motion: Rest Echo Findings All wall segments showed normal motion. Findings: Study Quality * Technically sub-optimal due to poor echocardiographic windows, no TDI. ECG Findings * Normal sinus rhythm. Left Ventricle * LVEF 60-65%. * Normal LV chamber size, wall thickness and systolic function. * Indeterminate diastolic function. Right Ventricle * Normal right ventricular structure and function. Left Atrium * Normal left atrial size. Right Atrium * Normal right atrial size. Interatrial Septum * Interatrial septum not well evaluated. * No evidence of PFO by color Doppler. Aortic Valve * Trileaflet aortic valve with normal function. * No aortic stenosis. * No aortic regurgitation. Mitral Valve * Normal mitral valve structure and function. * No mitral stenosis. * No mitral regurgitation. Tricuspid Valve * Normal tricuspid valve structure. * No tricuspid stenosis. * Mild tricuspid regurgitation. * Estimated RVSP is 21 mmHg. * Estimated RA pressure is 3 mmHg. * No pulmonary hypertension. Pulmonic Valve * Pulmonic valve is not well visualized. * No pulmonic stenosis. * No pulmonic regurgitation. Aorta * Normally sized aortic root. Pericardium * The pericardium appears normal. IVC * The IVC is not dilated. * > 50% respiratory change Chest X-Ray 04/03/19 20:04 IMPRESSION: Mild bibasilar airspace disease which could represent atelectasis or pneumonia. Blunting of the right costophrenic angle could indicate a small pleural effusion. D/ / 04/03/2019 20:50:33 Mati Davey MD / [email or web address] Interpreting Provider: Mati Davey MD Date of admission: 04/02/19 23:01 Primary care physician: PCP NONE Consults: 04/02/19 22:36 Consult to Neurology [CONS] Routine Consulting Provider: [facility] Reason for Consult: seizure?, anoxic brain injury Call Completed: No 04/02/19 22:39 Consult to Critical Care [CONS] Routine Consulting Provider: [facility] Reason for Consult: ventilator managment, ?anoxic brain injruy Call Completed: No - Patient Status Disposition: Left Against Medical Advice Condition: Fair - Discharge Instructions Follow Up With: NONE,PCP [Primary Care Provider] - - Diet and Activity Activity: increase activity as tolerated - Hospital Course Hospital course: Mr. Mary is a 53 year old male with a PMH of chronic headache, CRPS, COPD tobacco abuse, chronic back pain s/p left hip replacement, and EtOH abuse who presented to [facility] ED on 04/02/19 from [facility] after being found at home unresponsive by his family. He was found down by his girlfriend at home. Upon arrival to ED, patients vital signs were significant for a pulse 119, respiratory rate 19, and O2 saturation 93%. On presentation, patient was noted to be apneic and had pinpoint pupils. Laboratory analysis showed an elevated MCV at 104.0. An arterial blood gas was performed, which demonstrated pH 7.26, CO2 47, O2 256, HCO3 21, total CO2 23, and O2 saturation 100. Urine drug screen was found to be positive for marijuana, and he was found to have an elevated alcohol level of 194. CT scan of the head and neck demonstrated no acute abnormalities. He was transferred to the ICU for further management. Was originally on propofol but was later switched to Precedex. Neurology was consulted, who recommended continued medical and supportive care. He was given supplemental therapy with multivitamin and thiamine. Per nursing note on 04/03, patient became wide awake and agitated during assessment. He motion that he wanted to write, and began coughing and gagging. Sedation was given, and he was given pen to write with. 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 On 04/04, patient was successfully extubated and was placed on 2 L of oxygen via nasal cannula, and restraints were removed. After patient was extubated, he stated that he wanted to leave AGAINST MEDICAL ADVICE. The risks of leaving were discussed with patient, and he voices understanding. He is currently satting 90% on 2 L of oxygen via nasal cannula. His other vital signs are within normal limits. We will discharge patient with 7 days of oral Augmentin to complete a course for suspected pneumonia. - Time Spent with Patient Total time spent providing and/or coordinating discharge services: Physical Examination Vital Signs: Vital Signs, Last 4 Hours Temp Pulse Resp BP Pulse Ox 04/04/19 10:10 90 04/04/19 10:00 66 18 116/80 94 04/04/19 09:25 15 95 04/04/19 09:00 69 17 112/78 96 04/04/19 08:00 54 16 90/67 99 04/04/19 07:35 16 98 04/04/19 07:10 97.9 F 04/04/19 07:00 50 General: A&O X3, conversant, tired-appearing, raspy voice Head: atraumatic, normocephalic Eye: PERRL, EOMI, conjuntiva pink, sclera anicteric Neck: Supple, trachea midline; No lymphadenopathy Respiratory: Diminished breath sounds bilaterally, prolonged expiratory phase, rhonchi in the lower lung abdi bilaterally; no wheezing, Cardiovascular: RRR, +S1/S2; no murmurs, rubs, gallops Abdomen: Soft, nontender Extremities: warm, radial pulses palpable and symmetrical Psychiatric: Normal affect, normal mood Skin: Dry, intact <Tatyana Mejia M - Last Filed: 04/08/19 08:38> Orders not resulted at time of discharge: Pending orders 04/03/19 20:56 Culture,Sputum with Gram Stain [RM] Routine 04/03/19 23:32 Culture,Blood [BC] Routine Date of Encounter: 04/08/19 Labs on day of discharge: Labs from last 24 hours 04/04/19 04/04/19 04/04/19 06:24 04:26 03:48 WBC RBC Hgb Hct MCV MCH MCHC RDW Plt Count MPV Immature Gran % Seg Neutrophils % Lymphocytes % Monocytes % Eosinophils % Basophils % Neutrophils # Lymphocytes # Monocytes # Eosinophils # Basophils # Sample Site R Radial ABG pH 7.32 ABG pCO2 46 H ABG pO2 76 L ABG HCO3 23 ABG Total CO2 25 ABG O2 Saturation 94 L ABG Base Excess -3 L Respiration Rate 16 O2 Delivery Device Adult Vent Blood Gas Modality ASSIST CONTROL Inspired O2 40.0 Tidal Volume 500 PEEP 8 Sodium 140 Potassium 4.1 Chloride 107 Carbon Dioxide 23 BUN 7 Creatinine 0.54 L Est GFR ( Amer) > 60 Est GFR (Non-Af Amer) > 60 BUN/Creatinine Ratio 13 Glucose 124 H POC Glucose 109 H Calculated Osmolality 289 Calcium 9.1 Total Bilirubin 0.9 Direct Bilirubin 0.2 Indirect Bilirubin 0.7 AST 22 ALT 17 Alkaline Phosphatase 64 Serum Total Protein 6.4 Albumin 3.6 Globulin 2.8 Albumin/Globulin Ratio 1.3 04/04/19 04/04/19 03:48 01:01 WBC 7.6 RBC 3.98 L Hgb 13.9 Hct 42.5 MCV 106.8 H MCH 34.9 H MCHC 32.7 RDW 13.2 Plt Count 169 MPV 9.7 Immature Gran % 0.4 Seg Neutrophils % 78.2 Lymphocytes % 12.9 Monocytes % 7.2 Eosinophils % 0.9 Basophils % 0.4 Neutrophils # 5.9 Lymphocytes # 1.0 Monocytes # 0.6 Eosinophils # 0.1 Basophils # 0.0 Sample Site ABG pH ABG pCO2 ABG pO2 ABG HCO3 ABG Total CO2 ABG O2 Saturation ABG Base Excess Respiration Rate O2 Delivery Device Blood Gas Modality Inspired O2 Tidal Volume PEEP Sodium Potassium Chloride Carbon Dioxide BUN Creatinine Est GFR ( Amer) Est GFR (Non-Af Amer) BUN/Creatinine Ratio Glucose POC Glucose 123 H Calculated Osmolality Calcium Total Bilirubin Direct Bilirubin Indirect Bilirubin AST ALT Alkaline Phosphatase Serum Total Protein Albumin Globulin Albumin/Globulin Ratio Preliminary micro results at discharge 04/03/19 23:32 Blood Culture - Preliminary Peripheral Venipuncture Culture is incubating and being continuously monitored for growth. Final report to follow. 04/03/19 23:32 Blood Culture - Preliminary Peripheral Venipuncture Culture is incubating and being continuously monitored for growth. Final report to follow. - Impressions ITS Impressions Chest X-Ray 04/02/19 19:37 IMPRESSION: 1. Endotracheal tube tip terminates 5.1 cm above the phil. 2. Lower lung volumes with basilar atelectasis. D/ / 04/02/2019 19:59:10 Michelle Diggs MD / elliott Interpreting Provider: Michelle Diggs MD Cervical Spine CT 04/02/19 19:38 IMPRESSION: No acute abnormality of the cervical spine. Mild to moderate multilevel degenerative changes at C4 through C7. D/ / 04/02/2019 20:16:52 Michelle Diggs MD / elliott Interpreting Provider: Michelle Diggs MD Head CT 04/02/19 19:38 IMPRESSION: No acute intracranial abnormality. Paranasal sinus mucosal disease. D/ / Castillo Mooney / Castillo Mooney Interpreting Provider: Castillo Mooney Echocardiogram 04/02/19 21:37 Impressions: LVEF 60-65%. Indeterminate diastolic function. Normal right ventricular structure and function. Mild tricuspid regurgitation. No pulmonary hypertension. Left Ventricular Wall Motion: Rest Echo Findings All wall segments showed normal motion. Findings: Study Quality * Technically sub-optimal due to poor echocardiographic windows, no TDI. ECG Findings * Normal sinus rhythm. Left Ventricle * LVEF 60-65%. * Normal LV chamber size, wall thickness and systolic function. * Indeterminate diastolic function. Right Ventricle * Normal right ventricular structure and function. Left Atrium * Normal left atrial size. Right Atrium * Normal right atrial size. Interatrial Septum * Interatrial septum not well evaluated. * No evidence of PFO by color Doppler. Aortic Valve * Trileaflet aortic valve with normal function. * No aortic stenosis. * No aortic regurgitation. Mitral Valve * Normal mitral valve structure and function. * No mitral stenosis. * No mitral regurgitation. Tricuspid Valve * Normal tricuspid valve structure. * No tricuspid stenosis. * Mild tricuspid regurgitation. * Estimated RVSP is 21 mmHg. * Estimated RA pressure is 3 mmHg. * No pulmonary hypertension. Pulmonic Valve * Pulmonic valve is not well visualized. * No pulmonic stenosis. * No pulmonic regurgitation. Aorta * Normally sized aortic root. Pericardium * The pericardium appears normal. IVC * The IVC is not dilated. * > 50% respiratory change Chest X-Ray 04/03/19 20:04 IMPRESSION: Mild bibasilar airspace disease which could represent atelectasis or pneumonia. Blunting of the right costophrenic angle could indicate a small pleural effusion. D/ / 04/03/2019 20:50:33 Mati Davey MD / elliott Interpreting Provider: Mati Davey MD Date of admission: 04/02/19 23:01 Primary care physician: PCP NONE Consults: 04/02/19 22:36 Consult to Neurology [CONS] Routine Consulting Provider: Neu[facility] Reason for Consult: seizure?, anoxic brain injury Call Completed: No 04/02/19 22:39 Consult to Critical Care [CONS] Routine Consulting Provider: [facility]m [facility] Reason for Consult: ventilator managment, ?anoxic brain injruy Call Completed: No - Hospital Course Hospital course: Mr. Mary is a 53 year old male - Time Spent with Patient Total time spent providing and/or coordinating discharge services: - Attending Attestation I examined this patient and my medical decision-making was reviewed with the Resident Physician. I agree with the documented findings, disposition and treatment plan as described except to the extent set forth below. Patient seen and examined. Labs, radiology, chart personally reviewed. 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 Patient was awakening and patient was placed on spontaneous breathing trial which was successfully done and then he was extubated. After extubation patient wanted to go home and sign AGAINST MEDICAL ADVICE. Please refer to documentation by the nurse regarding recommendation. Cardiovascular: stable GI: Nutrition per dietary and GI prophylaxis per routine Heme: DVT prophylaxis per routine ID: Continue antibiotics and plan to de-escalation Renal; urine out put and renal function reviewed Endorcine: blood glucose is monitored Lines: all lines checked and no evidence of infections Skin: skin care to prevent pressure ulcers per nursing routine care Dispo: Patient sign AGAINST MEDICAL ADVICE Code: Full. Prognosis. Poor if he does not change his lifestyle
--- NOTE | 2019-04-04 12:58 | Electrocardiograph Report ---
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
--- NOTE | 2019-04-05 14:06 | Electrocardiograph Report ---
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
== END 2019-04-04 13:18 | disposition left against medical advice (07) | DRG 133 ==
LOC: EMEROOARM 19:19 → ICNU 23:01
PROVIDERS: ADMIT Internal Medicine; ATTEND Internal Medicine

== ENCOUNTER 2021-04-15 13:56 | Inpatient (IN) ==
[2021-04-15] MEDS ORDERED: Pantoprazole 80 MG in 0.9 % Sodium Chloride 50 ML IVPB ONE (14:31)
[2021-04-15] MEDS ORDERED: 0.9 % Sodium Chloride 1,000 ML IVC ONE (14:31)
[2021-04-15] MEDS ORDERED: Ondansetron 4 MG/2 ML VIAL IVP ONE (14:31)
[2021-04-15 15:05] LABS: Basophils % 0.5 %; Hematocrit 54.4 % (37.5-50.1); Hemoglobin 17.5 g/dL (12.9-16.9); Immature Granulocytes % 0.7 % (0-4); Lymphocytes # 0.8 K/mcL (0.6-4.6); Lymphocytes % 9.6 %; Mean Corpuscular HGB Conc 32.2 g/dL (31.6-35.5); Mean Corpuscular Hemoglobin 37.2 pg (28.0-33.3); Mean Corpuscular Volume 115.5 fL (83.0-100.0); Mean Platelet Volume 9.8 fL (9.4-12.4); Monocytes # 0.8 K/mcL (0.0-1.3); Monocytes % 9.5 %; Neutrophils # 6.6 K/mcL (1.6-8.9); Platelet Count 170 K/mcL (140-400); Red Blood Count 4.71 M/mcL (4.19-5.50); Red Cell Distribution Width 13.7 % (11.5-14.5); Segmented Neutrophils % 79.7 %; White Blood Count 8.3 K/mcL (4.3-11.1)
[2021-04-15 15:14] LABS: Prothrombin Time 11.2 Seconds (9.4-12.1)
[2021-04-15 15:17] LABS: Activated Partial Thrombo Time 34.6 Seconds (26.0-36.0)
[2021-04-15 15:34] LABS: Troponin I < 0.03 ng/mL (< 0.04)
[2021-04-15] MEDS ORDERED: *HR* FentaNYL (PF) 100 MCG/2 ML VIAL IVP STA (15:37)
[2021-04-15 15:49] LABS: Macrocytosis Present (Not Present); Platelet Estimate Normal (Normal)
[2021-04-15] MEDS: Pantoprazole 40 MG in 0.9 % Sodium Chloride Mini Bag 100 ML IVC SCH ×2 (15:49→22:07)
[2021-04-15] MEDS ORDERED: Metoclopramide 10 MG/2 ML VIAL IVP ONE (15:58)
[2021-04-15 15:59] LABS: Alanine Aminotransferase 62 Units/L (7-52); Albumin 4.8 g/dL (3.5-5.7); Albumin/Globulin Ratio 1.3 (1.1-2.2); Alkaline Phosphatase 90 Units/L (34-104); Aspartate Amino Transferase 101 Units/L (13-39); BUN/Creatinine Ratio 8 (6-26); Bilirubin,Total 0.8 mg/dL (0.3-1.0); Blood Urea Nitrogen 12 mg/dL (6-20); Calcium 9.3 mg/dL (8.6-10.3); Chloride 94 mEq/L (98-107); Globulin 3.6 g/dL (2.4-3.5); Glucose 167 mg/dL (70-105); Osmolality,Calculated 278 (280-300); Potassium 5.1 mEq/L (3.5-5.1); Sodium 132 mEq/L (136-145); Total Protein 8.4 g/dL (6.4-8.9); eGFR For African Americans 56 (> 60); eGFR For Non-African Americans 46 (> 60)
[2021-04-15 16:28] LABS: Lipase > 1800 Units/L (11-82)
[2021-04-15] MEDS ORDERED: Isovue-370 500 ML BOTTLE IVP ONE (16:56)
[2021-04-15] MEDS ORDERED: Thiamine (B-1) 100 MG in 0.9 % Sodium Chloride 50 ML IVPB STA (17:56)
[2021-04-15] MEDS ORDERED: Acetaminophen 325 MG TABLET PO PRN (17:57)
[2021-04-15] MEDS ORDERED: Melatonin 3 MG TABLET PO PRN (17:57)
[2021-04-15] MEDS ORDERED: *HR* LORazepam 2 MG/ML VIAL IVP PRN ×2 (18:00)
[2021-04-15] MEDS ORDERED: Thiamine (B-1) 100 MG TABLET PO SCH (18:15)
[2021-04-15] MEDS ORDERED: Folic Acid 1 MG TABLET PO SCH (18:15)
[2021-04-15 18:17] LABS: VBG HCO3 5 mEq/L (21-27); VBG PCO2 22 mmHg (41-51); VBG PH 6.97 pH Units (7.32-7.42); VBG PO2 188 mmHg (25-50)
[2021-04-15 18:18] LABS: Carbon Dioxide 5 mEq/L (23-29)
[2021-04-15 18:34] LABS: Ethanol < 10 mg/dL (Less than 10)
[2021-04-15] MEDS ORDERED: *HR* Dextrose 50 % in Water (Vial) 50 ML VIAL IVP PRN (18:39)
[2021-04-15] MEDS ORDERED: Nicotine 2 MG GUM BC PRN (18:43)
[2021-04-15] MEDS ORDERED: 0.9 % Sodium Chloride 1,000 ML IV ONE (19:01)
[2021-04-15] MEDS: Thiamine (B-1) 100 MG, Folic Acid 1 MG, MVI, adult with vitamin K 10 ML in 0.9 % Sodi... IVPB SCH (19:21)
[2021-04-15] MEDS: Sodium Bicarbonate 150 MEQ in D5% in Water 1,000 ML IVC SCH (19:23)
[2021-04-15 20:31] LABS: Salicylate < 2.5 mg/dL (15.0-30.0)
[2021-04-15 20:33] LABS: Estimated Average Glucose 100 mg/dl; Hemoglobin A1C 5.1 %
[2021-04-15 20:53] LABS: BUN/Creatinine Ratio 9 (6-26); Blood Urea Nitrogen 12 mg/dL (6-20); Calcium 8.2 mg/dL (8.6-10.3); Carbon Dioxide 4 mEq/L (23-29); Chloride 100 mEq/L (98-107); Glucose 191 mg/dL (70-105); Osmolality,Calculated 277 (280-300); Potassium 5.4 mEq/L (3.5-5.1); Sodium 131 mEq/L (136-145); eGFR For African Americans > 60 (> 60); eGFR For Non-African Americans 56 (> 60)
[2021-04-15 21:25] LABS: Amphetamine Screen,Urine Negative ng/mL (Cutoff=1000); Barbiturate Screen,Urine Negative ng/mL (Cutoff=200); Benzodiazepines Screen,Urine Negative ng/mL (Cutoff=200); Cannabinoid Screen,Urine Negative ng/mL (Cutoff = 50); Cocaine Screen,Urine Negative ng/mL (Cutoff= 300); Opiate Screen,Urine Negative ng/mL (Cutoff=300); Phencyclidine Screen,Urine Negative ng/mL (Cutoff=25)
[2021-04-15 21:27] LABS: Bilirubin,Urine Negative (Negative); Blood,Urine Moderate (Negative); Clarity,Urine Clear (Clear); Color,Urine Light-Yellow (Yellow); Glucose,Urine (UA) Normal (Normal); Hyaline Casts,Urine Few per lpf (None Seen); Ketones,Urine >150 mg/dL (Negative); Leukocyte Esterase,Urine Negative (Negative); Mucus,Urine Few per lpf (None-Few); Nitrite,Urine Negative (Negative); Protein,Urine 200 mg/dL (Neg-Trace); Specific Gravity,Urine > 1.030 (1.010-1.025); Squamous Epithelial Cell,Urine Few per hpf (None-Few); Urobilinogen,Urine Normal (Normal); WBC,Urine 0-3 per hpf (0-3)
[2021-04-15] MEDS: Patient Taking Own Medication 1 EACH PO SCH (21:43)
[2021-04-15] MEDS: Nicotine 21 MG PATCH.TD24 TD SCH (22:10)
[2021-04-15] MEDS: Ondansetron 4 MG/2 ML VIAL IVP PRN (22:12)
[2021-04-15] MEDS: *HR* LORazepam 2 MG/ML VIAL IVP PRN (22:43)
[2021-04-16 00:11] LABS: ABG Base Excess -19 mEq/L (-2 to 3); ABG HCO3 7 mEq/L (21-27); ABG Oxygen Saturation 92 % (95-98); ABG PCO2 18 mmHg (35-45); ABG PO2 75 mmHg (85-104); ABG TCO2 8 mEq/L (20-26)
[2021-04-16 01:08] LABS: BUN/Creatinine Ratio 9 (6-26); Blood Urea Nitrogen 10 mg/dL (6-20); Calcium 7.6 mg/dL (8.6-10.3); Carbon Dioxide 6 mEq/L (23-29); Chloride 104 mEq/L (98-107); Glucose 166 mg/dL (70-105); Osmolality,Calculated 277 (280-300); Potassium 4.6 mEq/L (3.5-5.1); Sodium 132 mEq/L (136-145); eGFR For African Americans > 60 (> 60); eGFR For Non-African Americans > 60 (> 60)
[2021-04-16] MEDS: Vitamin B Complex/Vit C/Vit E 1 EACH TABLET PO SCH ×2 (01:22→07:25)
[2021-04-16] MEDS: D5% in 0.45% NACL w KCl 20 MEQ/1,000 ML MLS IVC SCH ×5 (02:15→19:51)
[2021-04-16] MEDS: Pantoprazole 40 MG in 0.9 % Sodium Chloride Mini Bag 100 ML IVC SCH ×2 (02:53→07:29)
[2021-04-16] MEDS: Sodium Bicarbonate 150 MEQ in D5% in Water 1,000 ML IVC SCH (04:24)
[2021-04-16] MEDS: *HR* LORazepam 2 MG/ML VIAL IVP PRN (04:34)
[2021-04-16 05:05] LABS: VBG HCO3 16 mEq/L (21-27); VBG PCO2 27 mmHg (41-51); VBG PH 7.38 pH Units (7.32-7.42); VBG PO2 136 mmHg (25-50)
[2021-04-16 05:07] LABS: BUN/Creatinine Ratio 9 (6-26); Blood Urea Nitrogen 8 mg/dL (6-20); Calcium 7.5 mg/dL (8.6-10.3); Carbon Dioxide 15 mEq/L (23-29); Chloride 104 mEq/L (98-107); Glucose 192 mg/dL (70-105); Osmolality,Calculated 278 (280-300); Potassium 3.8 mEq/L (3.5-5.1); Sodium 132 mEq/L (136-145); eGFR For African Americans > 60 (> 60); eGFR For Non-African Americans > 60 (> 60)
[2021-04-16 05:09] LABS: Alanine Aminotransferase 39 Units/L (7-52); Albumin 3.6 g/dL (3.5-5.7); Albumin/Globulin Ratio 1.5 (1.1-2.2); Alkaline Phosphatase 59 Units/L (34-104); Aspartate Amino Transferase 58 Units/L (13-39); BUN/Creatinine Ratio 9 (6-26); Bilirubin,Direct 0.4 mg/dL (0.0-0.2); Bilirubin,Indirect 0.7 mg/dL (0.0-1.0); Bilirubin,Total 1.1 mg/dL (0.3-1.0); Blood Urea Nitrogen 8 mg/dL (6-20); Calcium 7.5 mg/dL (8.6-10.3); Carbon Dioxide 15 mEq/L (23-29); Chloride 104 mEq/L (98-107); Globulin 2.4 g/dL (2.4-3.5); Glucose 194 mg/dL (70-105); Magnesium 1.5 mg/dL (1.6-2.6); Osmolality,Calculated 280 (280-300); Potassium 3.8 mEq/L (3.5-5.1); Sodium 133 mEq/L (136-145); eGFR For African Americans > 60 (> 60); eGFR For Non-African Americans > 60 (> 60)
[2021-04-16 05:14] LABS: Prothrombin Time 11.8 Seconds (9.4-12.1)
[2021-04-16 06:22] LABS: Hematocrit 43.4 % (37.5-50.1); Hemoglobin 15.3 g/dL (12.9-16.9); Mean Corpuscular HGB Conc 35.3 g/dL (31.6-35.5); Mean Corpuscular Hemoglobin 37.6 pg (28.0-33.3); Mean Corpuscular Volume 106.6 fL (83.0-100.0); Mean Platelet Volume 10.1 fL (9.4-12.4); Platelet Count 110 K/mcL (140-400); Red Blood Count 4.07 M/mcL (4.19-5.50); Red Cell Distribution Width 12.7 % (11.5-14.5); White Blood Count 9.4 K/mcL (4.3-11.1)
[2021-04-16] MEDS: Nicotine 21 MG PATCH.TD24 TD SCH (07:30)
[2021-04-16] MEDS ORDERED: Fluticasone Propionate Nasal 50 MCG/SPRAY BOTTLE NS PRN (08:04)
[2021-04-16] MEDS ORDERED: Folic Acid 1 MG in 0.9 % Sodium Chloride 50 ML IVPB SCH (09:00)
[2021-04-16] MEDS ORDERED: Thiamine (B-1) 200 MG in 0.9 % Sodium Chloride 50 ML IVPB SCH (09:00)
[2021-04-16 10:06] LABS: BUN/Creatinine Ratio 10 (6-26); Blood Urea Nitrogen 7 mg/dL (6-20); Calcium 7.5 mg/dL (8.6-10.3); Carbon Dioxide 20 mEq/L (23-29); Chloride 104 mEq/L (98-107); Glucose 119 mg/dL (70-105); Osmolality,Calculated 273 (280-300); Potassium 3.5 mEq/L (3.5-5.1); Sodium 132 mEq/L (136-145); eGFR For African Americans > 60 (> 60); eGFR For Non-African Americans > 60 (> 60)
[2021-04-16] MEDS ORDERED: chlorproMAZINE 25 MG in 0.9 % Sodium Chloride 100 ML IVPB ONE (10:20)
[2021-04-16 13:38] LABS: Lipase > 1800 Units/L (11-82)
[2021-04-16] MEDS: *HR* HYDROmorphone (PF) 1 MG/ML SYRINGE IVP PRN ×2 (16:29→22:59)
[2021-04-16] MEDS: Thiamine (B-1) 100 MG, Folic Acid 1 MG, MVI, adult with vitamin K 10 ML in 0.9 % Sodi... IVPB SCH (18:09)
[2021-04-16] MEDS: Pantoprazole 40 MG VIAL IVP SCH (18:09)
[2021-04-16] MEDS: Insulin LISPRO 300 UNITS/3 ML VIAL SUBQ SCH ×2 (18:17→23:04)
[2021-04-16] MEDS: Patient Taking Own Medication 1 EACH PO SCH (19:38)
[2021-04-17] MEDS: D5% in 0.45% NACL w KCl 20 MEQ/1,000 ML MLS IVC SCH ×3 (04:00→21:14)
[2021-04-17 05:14] LABS: Eosinophils % 0.3 %; Immature Granulocytes % 0.3 % (0-4)
[2021-04-17 05:15] LABS: Basophils % 0.3 %; Hematocrit 38.1 % (37.5-50.1); Hemoglobin 13.8 g/dL (12.9-16.9); Immature Platelets 5.9 % (1.1-6.1); Lymphocytes # 1.2 K/mcL (0.6-4.6); Mean Corpuscular HGB Conc 36.2 g/dL (31.6-35.5); Mean Corpuscular Hemoglobin 37.3 pg (28.0-33.3); Mean Platelet Volume 10.5 fL (9.4-12.4); Monocytes # 0.5 K/mcL (0.0-1.3); Monocytes % 6.9 %; Red Cell Distribution Width 12.8 % (11.5-14.5); Segmented Neutrophils % 74.2 %; White Blood Count 6.5 K/mcL (4.3-11.1)
[2021-04-17 05:18] LABS: Neutrophils # 4.8 K/mcL (1.6-8.9); Platelet Count 87 K/mcL (140-400)
[2021-04-17 05:32] LABS: BUN/Creatinine Ratio 9 (6-26); Blood Urea Nitrogen 4 mg/dL (6-20); Calcium 7.7 mg/dL (8.6-10.3); Carbon Dioxide 21 mEq/L (23-29); Chloride 104 mEq/L (98-107); Glucose 115 mg/dL (70-105); Osmolality,Calculated 272 (280-300); Potassium 3.4 mEq/L (3.5-5.1); Sodium 132 mEq/L (136-145); eGFR For African Americans > 60 (> 60); eGFR For Non-African Americans > 60 (> 60)
[2021-04-17 05:52] LABS: Alanine Aminotransferase 28 Units/L (7-52); Albumin 3.2 g/dL (3.5-5.7); Albumin/Globulin Ratio 1.5 (1.1-2.2); Alkaline Phosphatase 50 Units/L (34-104); Aspartate Amino Transferase 41 Units/L (13-39); BUN/Creatinine Ratio 9 (6-26); Bilirubin,Total 0.9 mg/dL (0.3-1.0); Blood Urea Nitrogen 4 mg/dL (6-20); Calcium 7.8 mg/dL (8.6-10.3); Carbon Dioxide 22 mEq/L (23-29); Chloride 104 mEq/L (98-107); Globulin 2.1 g/dL (2.4-3.5); Glucose 116 mg/dL (70-105); Lipase 1060 Units/L (11-82); Osmolality,Calculated 274 (280-300); Potassium 3.4 mEq/L (3.5-5.1); Sodium 133 mEq/L (136-145); Total Protein 5.3 g/dL (6.4-8.9); eGFR For African Americans > 60 (> 60); eGFR For Non-African Americans > 60 (> 60)
[2021-04-17] MEDS: Insulin LISPRO 300 UNITS/3 ML VIAL SUBQ SCH ×4 (05:53→23:48)
[2021-04-17] MEDS: Pantoprazole 40 MG VIAL IVP SCH ×2 (05:53→17:19)
[2021-04-17] MEDS ORDERED: Potassium Chloride 40 MEQ/200 ML BAG IVPB PRN (06:16)
[2021-04-17] MEDS ORDERED: Potassium Chloride 40 MEQ, Lidocaine 1% 2 ML in 0.9 % Sodium Chloride 500 ML IVPB ONE (06:19)
[2021-04-17 07:06] LABS: Basophils % 0.3 %; Eosinophils % 0.3 %; Hematocrit 37.5 % (37.5-50.1); Hemoglobin 13.1 g/dL (12.9-16.9); Immature Granulocytes % 0.3 % (0-4); Immature Platelets 6.2 % (1.1-6.1); Lymphocytes # 1.2 K/mcL (0.6-4.6); Lymphocytes % 18.1 %; Mean Corpuscular HGB Conc 34.9 g/dL (31.6-35.5); Mean Corpuscular Hemoglobin 36.6 pg (28.0-33.3); Mean Corpuscular Volume 104.7 fL (83.0-100.0); Mean Platelet Volume 10.6 fL (9.4-12.4); Monocytes # 0.4 K/mcL (0.0-1.3); Monocytes % 6.1 %; Neutrophils # 4.8 K/mcL (1.6-8.9); Platelet Count 86 K/mcL (140-400); Red Blood Count 3.58 M/mcL (4.19-5.50); Red Cell Distribution Width 12.9 % (11.5-14.5); Segmented Neutrophils % 74.9 %; White Blood Count 6.4 K/mcL (4.3-11.1)
[2021-04-17 07:24] LABS: BUN/Creatinine Ratio 9 (6-26); Blood Urea Nitrogen 4 mg/dL (6-20); Calcium 7.8 mg/dL (8.6-10.3); Carbon Dioxide 22 mEq/L (23-29); Chloride 104 mEq/L (98-107); Glucose 123 mg/dL (70-105); Osmolality,Calculated 272 (280-300); Potassium 3.4 mEq/L (3.5-5.1); Sodium 132 mEq/L (136-145); eGFR For African Americans > 60 (> 60); eGFR For Non-African Americans > 60 (> 60)
[2021-04-17] MEDS: Ondansetron 4 MG/2 ML VIAL IVP PRN (07:47)
[2021-04-17] MEDS: Nicotine 21 MG PATCH.TD24 TD SCH (08:38)
[2021-04-17] MEDS: Vitamin B Complex/Vit C/Vit E 1 EACH TABLET PO SCH (08:38)
[2021-04-17] MEDS: *HR* HYDROmorphone (PF) 1 MG/ML SYRINGE IVP PRN (08:38)
[2021-04-17] MEDS ORDERED: Dextrose Gel 15 GM/37.5 ML TUBE PO PRN ×4 (09:22→11:13)
[2021-04-17] MEDS ORDERED: *HR* Dextrose 50 % in Water (Vial) 50 ML VIAL IVP PRN ×2 (09:22→11:13)
[2021-04-17] MEDS ORDERED: D5% in Water 1,000 ML IVC PRN ×2 (09:22→11:13)
[2021-04-17] MEDS ORDERED: Famotidine 20 MG TABLET PO SCH (10:15)
[2021-04-17] MEDS ORDERED: Nicotine 2 MG GUM BC PRN (11:13)
[2021-04-17] MEDS ORDERED: Fluticasone Propionate Nasal 50 MCG/SPRAY BOTTLE NS PRN (11:13)
[2021-04-17] MEDS ORDERED: *HR* LORazepam 2 MG/ML VIAL IVP PRN (11:13)
[2021-04-17] MEDS ORDERED: Melatonin 3 MG TABLET PO PRN (11:13)
[2021-04-17] MEDS: *HR* LORazepam 2 MG/ML VIAL IVP PRN ×3 (11:36→16:25)
[2021-04-17] MEDS: Acetaminophen 325 MG TABLET PO PRN (14:05)
[2021-04-17 16:36] LABS: Magnesium 1.1 mg/dL (1.6-2.6); Potassium 3.4 mEq/L (3.5-5.1)
[2021-04-17] MEDS: Dexmedetomidine HCl 400 MCG/100 ML MLS IVC SCH (16:52)
[2021-04-17] MEDS: Thiamine (B-1) 100 MG TABLET PO SCH (17:59)
[2021-04-17] MEDS ORDERED: Folic Acid 1 MG TABLET PO SCH (18:00)
[2021-04-17] MEDS: Folic Acid 1 MG TABLET PO SCH (18:00)
[2021-04-17] MEDS ORDERED: Thiamine (B-1) 100 MG TABLET PO SCH (18:00)
[2021-04-17] MEDS: Famotidine 20 MG TABLET PO SCH (21:15)
[2021-04-18] MEDS: Pantoprazole 40 MG VIAL IVP SCH ×2 (05:57→17:55)
[2021-04-18] MEDS: Dexmedetomidine HCl 400 MCG/100 ML MLS IVC SCH ×2 (05:58→07:50)
[2021-04-18] MEDS: D5% in 0.45% NACL w KCl 20 MEQ/1,000 ML MLS IVC SCH ×3 (05:58→20:14)
[2021-04-18] MEDS: Insulin LISPRO 300 UNITS/3 ML VIAL SUBQ SCH ×3 (06:04→19:01)
[2021-04-18 06:25] LABS: Immature Granulocytes % 0.6 % (0-4); Segmented Neutrophils % 69.4 %
[2021-04-18 06:27] LABS: Basophils % 0.4 %; Eosinophils # 0.1 K/mcL (0.0-0.6); Eosinophils % 1.3 %; Hematocrit 39.6 % (37.5-50.1); Immature Platelets 10.2 % (1.1-6.1); Lymphocytes # 1.4 K/mcL (0.6-4.6); Lymphocytes % 20.1 %; Mean Corpuscular HGB Conc 35.4 g/dL (31.6-35.5); Mean Corpuscular Hemoglobin 37.1 pg (28.0-33.3); Mean Platelet Volume 11.2 fL (9.4-12.4); Monocytes # 0.6 K/mcL (0.0-1.3); Monocytes % 8.2 %; Red Blood Count 3.77 M/mcL (4.19-5.50); Red Cell Distribution Width 13.2 % (11.5-14.5)
[2021-04-18 06:28] LABS: Neutrophils # 4.9 K/mcL (1.6-8.9); Platelet Count 84 K/mcL (140-400)
[2021-04-18 08:07] LABS: BUN/Creatinine Ratio 7 (6-26); Blood Urea Nitrogen 3 mg/dL (6-20); Calcium 8.2 mg/dL (8.6-10.3); Carbon Dioxide 23 mEq/L (23-29); Chloride 105 mEq/L (98-107); Glucose 109 mg/dL (70-105); Magnesium 1.6 mg/dL (1.6-2.6); Osmolality,Calculated 271 (280-300); Phosphorous < 1.0 mg/dL (2.7-4.5); Potassium 3.6 mEq/L (3.5-5.1); Sodium 132 mEq/L (136-145); eGFR For African Americans > 60 (> 60); eGFR For Non-African Americans > 60 (> 60)
[2021-04-18] MEDS: Nicotine 21 MG PATCH.TD24 TD SCH (08:43)
[2021-04-18] MEDS: Famotidine 20 MG TABLET PO SCH ×2 (08:44→20:15)
[2021-04-18] MEDS: Vitamin B Complex/Vit C/Vit E 1 EACH TABLET PO SCH (08:44)
[2021-04-18] MEDS: Thiamine (B-1) 100 MG TABLET PO SCH ×3 (08:44→20:15)
[2021-04-18] MEDS: Folic Acid 1 MG TABLET PO SCH (08:44)
[2021-04-18] MEDS ORDERED: Calcium Gluconate 1gm/50mL 1 GM/50 ML BAG IVPB PRN (09:04)
[2021-04-18] MEDS: Acetaminophen 325 MG TABLET PO PRN (10:11)
[2021-04-18 10:50] LABS: Basophils % 0.3 %; Segmented Neutrophils % 76.5 %
[2021-04-18 10:52] LABS: Eosinophils # 0.1 K/mcL (0.0-0.6); Eosinophils % 0.9 %; Hemoglobin 12.9 g/dL (12.9-16.9); Immature Granulocytes % 0.6 % (0-4); Immature Platelets 9.3 % (1.1-6.1); Lymphocytes % 15.7 %; Mean Corpuscular HGB Conc 34.9 g/dL (31.6-35.5); Mean Platelet Volume 11.3 fL (9.4-12.4); Monocytes # 0.4 K/mcL (0.0-1.3); Neutrophils # 4.8 K/mcL (1.6-8.9); Red Blood Count 3.49 M/mcL (4.19-5.50); Red Cell Distribution Width 13.2 % (11.5-14.5); White Blood Count 6.3 K/mcL (4.3-11.1)
[2021-04-18 10:56] LABS: Platelet Count 92 K/mcL (140-400)
[2021-04-18 11:15] LABS: BUN/Creatinine Ratio 8 (6-26); Blood Urea Nitrogen 3 mg/dL (6-20); Calcium 8.2 mg/dL (8.6-10.3); Carbon Dioxide 23 mEq/L (23-29); Chloride 103 mEq/L (98-107); Glucose 133 mg/dL (70-105); Osmolality,Calculated 270 (280-300); Potassium 3.7 mEq/L (3.5-5.1); Sodium 131 mEq/L (136-145); eGFR For African Americans > 60 (> 60); eGFR For Non-African Americans > 60 (> 60)
[2021-04-18] MEDS ORDERED: 0.9 % Sodium Chloride 1,000 ML IVC SCH (17:00)
[2021-04-19] MEDS: Insulin LISPRO 300 UNITS/3 ML VIAL SUBQ SCH ×4 (00:46→17:47)
[2021-04-19] MEDS: D5% in 0.45% NACL w KCl 20 MEQ/1,000 ML MLS IVC SCH ×2 (04:28→15:07)
[2021-04-19 04:37] LABS: Basophils % 0.3 %; Eosinophils % 0.7 %; Hematocrit 38.2 % (37.5-50.1); Hemoglobin 13.2 g/dL (12.9-16.9); Immature Granulocytes % 0.7 % (0-4); Lymphocytes # 0.9 K/mcL (0.6-4.6); Lymphocytes % 15.6 %; Mean Corpuscular HGB Conc 34.6 g/dL (31.6-35.5); Mean Corpuscular Hemoglobin 36.6 pg (28.0-33.3); Mean Corpuscular Volume 105.8 fL (83.0-100.0); Mean Platelet Volume 10.3 fL (9.4-12.4); Monocytes # 0.6 K/mcL (0.0-1.3); Monocytes % 9.3 %; Neutrophils # 4.4 K/mcL (1.6-8.9); Platelet Count 127 K/mcL (140-400); Red Blood Count 3.61 M/mcL (4.19-5.50); Red Cell Distribution Width 13.1 % (11.5-14.5); Segmented Neutrophils % 73.4 %
[2021-04-19 04:40] LABS: VBG Ionized Calcium 1.13 mmol/L (1.15-1.35)
[2021-04-19 05:14] LABS: BUN/Creatinine Ratio 6 (6-26); Blood Urea Nitrogen 3 mg/dL (6-20); Calcium 8.1 mg/dL (8.6-10.3); Carbon Dioxide 23 mEq/L (23-29); Chloride 102 mEq/L (98-107); Glucose 129 mg/dL (70-105); Lipase 618 Units/L (11-82); Magnesium 1.6 mg/dL (1.6-2.6); Osmolality,Calculated 270 (280-300); Phosphorous 1.2 mg/dL (2.7-4.5); Potassium 3.7 mEq/L (3.5-5.1); Sodium 131 mEq/L (136-145); eGFR For African Americans > 60 (> 60); eGFR For Non-African Americans > 60 (> 60)
[2021-04-19] MEDS: Pantoprazole 40 MG VIAL IVP SCH ×2 (05:46→17:49)
[2021-04-19] MEDS ORDERED: Ketorolac 15 MG/ML VIAL IVP ONE (08:44)
[2021-04-19 09:23] LABS: Magnesium 2.2 mg/dL (1.6-2.6); Phosphorous 1.4 mg/dL (2.7-4.5)
[2021-04-19 09:24] LABS: BUN/Creatinine Ratio 6 (6-26); Blood Urea Nitrogen 3 mg/dL (6-20); Calcium 8.1 mg/dL (8.6-10.3); Carbon Dioxide 24 mEq/L (23-29); Chloride 101 mEq/L (98-107); Glucose 138 mg/dL (70-105); Osmolality,Calculated 273 (280-300); Potassium 3.6 mEq/L (3.5-5.1); Sodium 132 mEq/L (136-145); eGFR For African Americans > 60 (> 60); eGFR For Non-African Americans > 60 (> 60)
[2021-04-19 09:31] LABS: ABG PCO2 < 13 mmHg (35-45); ABG PH 6.97 pH Units (7.32-7.45); ABG PO2 107 mmHg (85-104)
[2021-04-19 10:09] LABS: ABG PCO2 < 13 mmHg (35-45); ABG PH 6.97 pH Units (7.32-7.45); ABG PO2 107 mmHg (85-104)
[2021-04-19] MEDS: Famotidine 20 MG TABLET PO SCH ×2 (11:54→20:28)
[2021-04-19] MEDS: Acetaminophen 325 MG TABLET PO PRN (11:54)
[2021-04-19] MEDS: Nicotine 21 MG PATCH.TD24 TD SCH (11:54)
[2021-04-19] MEDS: Thiamine (B-1) 100 MG TABLET PO SCH ×3 (11:55→20:28)
[2021-04-19] MEDS: Folic Acid 1 MG TABLET PO SCH (11:55)
[2021-04-19] MEDS: Vitamin B Complex/Vit C/Vit E 1 EACH TABLET PO SCH (11:55)
[2021-04-19] MEDS: Ondansetron 4 MG/2 ML VIAL IVP PRN (17:50)
[2021-04-20] MEDS: Insulin LISPRO 300 UNITS/3 ML VIAL SUBQ SCH ×5 (00:27→23:52)
[2021-04-20] MEDS: D5% in 0.45% NACL w KCl 20 MEQ/1,000 ML MLS IVC SCH ×4 (00:48→22:08)
[2021-04-20 02:16] LABS: Magnesium 1.7 mg/dL (1.6-2.6); Phosphorous 2.1 mg/dL (2.7-4.5)
[2021-04-20] MEDS: Pantoprazole 40 MG VIAL IVP SCH ×2 (05:39→17:48)
[2021-04-20 09:55] LABS: BUN/Creatinine Ratio 8 (6-26); Blood Urea Nitrogen 4 mg/dL (6-20); Calcium 8.3 mg/dL (8.6-10.3); Carbon Dioxide 22 mEq/L (23-29); Chloride 104 mEq/L (98-107); Glucose 148 mg/dL (70-105); Osmolality,Calculated 272 (280-300); Potassium 3.9 mEq/L (3.5-5.1); Sodium 131 mEq/L (136-145); eGFR For African Americans > 60 (> 60); eGFR For Non-African Americans > 60 (> 60)
[2021-04-20] MEDS: Famotidine 20 MG TABLET PO SCH ×2 (10:18→20:14)
[2021-04-20] MEDS: Thiamine (B-1) 100 MG TABLET PO SCH ×3 (10:18→20:14)
[2021-04-20] MEDS: Vitamin B Complex/Vit C/Vit E 1 EACH TABLET PO SCH (10:18)
[2021-04-20] MEDS: Folic Acid 1 MG TABLET PO SCH (10:18)
[2021-04-20] MEDS: Nicotine 21 MG PATCH.TD24 TD SCH (10:19)
[2021-04-20] MEDS: Dexmedetomidine HCl 400 MCG/100 ML MLS IVC SCH (16:55)
[2021-04-20] MEDS: *HR* LORazepam 2 MG/ML VIAL IVP PRN (23:36)
[2021-04-21] MEDS ORDERED: Acetaminophen 325 MG TABLET PO PRN (04:21)
[2021-04-21] MEDS: *HR* LORazepam 2 MG/ML VIAL IVP PRN ×2 (05:12→06:43)
[2021-04-21] MEDS: Pantoprazole 40 MG VIAL IVP SCH ×2 (05:17→16:07)
[2021-04-21] MEDS: D5% in 0.45% NACL w KCl 20 MEQ/1,000 ML MLS IVC SCH ×2 (05:59→11:22)
[2021-04-21 06:36] LABS: BUN/Creatinine Ratio 6 (6-26); Blood Urea Nitrogen 4 mg/dL (6-20); Calcium 8.9 mg/dL (8.6-10.3); Carbon Dioxide 22 mEq/L (23-29); Chloride 97 mEq/L (98-107); Glucose 101 mg/dL (70-105); Magnesium 1.5 mg/dL (1.6-2.6); Osmolality,Calculated 263 (280-300); Phosphorous 2.8 mg/dL (2.7-4.5); Potassium 4.2 mEq/L (3.5-5.1); Sodium 128 mEq/L (136-145); eGFR For African Americans > 60 (> 60); eGFR For Non-African Americans > 60 (> 60)
[2021-04-21 06:48] LABS: Hematocrit 38.2 % (37.5-50.1); Hemoglobin 13.9 g/dL (12.9-16.9); Mean Corpuscular HGB Conc 36.4 g/dL (31.6-35.5); Mean Corpuscular Hemoglobin 37.3 pg (28.0-33.3); Mean Corpuscular Volume 102.4 fL (83.0-100.0); Mean Platelet Volume 9.5 fL (9.4-12.4); Platelet Count 277 K/mcL (140-400); Red Blood Count 3.73 M/mcL (4.19-5.50); Red Cell Distribution Width 13.1 % (11.5-14.5); White Blood Count 6.4 K/mcL (4.3-11.1)
[2021-04-21] MEDS: Insulin LISPRO 300 UNITS/3 ML VIAL SUBQ SCH ×4 (07:17→23:38)
[2021-04-21] MEDS: Folic Acid 1 MG TABLET PO SCH (08:16)
[2021-04-21] MEDS: Famotidine 20 MG TABLET PO SCH ×2 (08:16→16:07)
[2021-04-21] MEDS: Ibuprofen 800 MG TABLET PO PRN (08:16)
[2021-04-21] MEDS: Nicotine 21 MG PATCH.TD24 TD SCH (08:17)
[2021-04-21] MEDS: Thiamine (B-1) 100 MG TABLET PO SCH ×3 (08:17→20:12)
[2021-04-21] MEDS: Vitamin B Complex/Vit C/Vit E 1 EACH TABLET PO SCH (08:17)
[2021-04-21 09:43] LABS: Adenovirus Not Detected (Not Detect); Coronavirus 229E Not Detected (Not Detect); Coronavirus HKU1 Not Detected (Not Detect); Coronavirus NL63 Not Detected (Not Detect); Coronavirus OC43 Not Detected (Not Detect); Human Metapneumovirus Not Detected (Not Detect); Human Rhinovirus/Enterovirus Not Detected (Not Detect); Influenza A Subtype 2009 H1 Not Detected (Not Detect); Influenza B Not Detected (Not Detect); SARS-CoV-2 Not Detected (Not Detect)
[2021-04-21 09:44] LABS: Bordetella Pertussis Not Detected (Not Detect); Chlamydophila pneumoniae Not Detected (Not Detect); Mycoplasma pneumoniae Not Detected (Not Detect); Parainfluenza Virus 1 Not Detected (Not Detect); Parainfluenza Virus 2 Not Detected (Not Detect); Parainfluenza Virus 3 Not Detected (Not Detect); Parainfluenza Virus 4 Not Detected (Not Detect); Respiratory Syncytial Virus Not Detected (Not Detect)
[2021-04-21 13:22] LABS: Bilirubin,Urine Negative (Negative); Blood,Urine Small (Negative); Clarity,Urine Clear (Clear); Color,Urine Yellow (Yellow); Glucose,Urine (UA) Normal (Normal); Ketones,Urine Negative (Negative); Leukocyte Esterase,Urine Negative (Negative); Mucus,Urine Few per lpf (None-Few); Nitrite,Urine Negative (Negative); Protein,Urine Trace mg/dL (Neg-Trace); RBC,Urine 0-3 per hpf (0-3); Specific Gravity,Urine 1.006 (1.010-1.025); Urobilinogen,Urine Normal (Normal); WBC,Urine 0-3 per hpf (0-3)
[2021-04-21] MEDS ORDERED: 0.9 % Sodium Chloride 1,000 ML ONE (14:42)
[2021-04-21] MEDS ORDERED: Gadolinium Contrast Agent (WT Based) IV PRN (14:47)
[2021-04-21] MEDS ORDERED: Isovue-370 500 ML BOTTLE IVP ONE (14:53)
[2021-04-21] MEDS ORDERED: Acetaminophen IV 1,000 MG/100 ML BAG IVPB ONE (14:56)
[2021-04-21 15:59] LABS: Basophils % 0.6 %; Eosinophils % 0.6 %; Hematocrit 35.1 % (37.5-50.1); Immature Granulocytes % 0.9 % (0-4); Lymphocytes # 0.6 K/mcL (0.6-4.6); Lymphocytes % 10.8 %; Mean Corpuscular HGB Conc 34.8 g/dL (31.6-35.5); Mean Corpuscular Hemoglobin 36.5 pg (28.0-33.3); Mean Corpuscular Volume 105.1 fL (83.0-100.0); Mean Platelet Volume 9.6 fL (9.4-12.4); Monocytes # 0.9 K/mcL (0.0-1.3); Monocytes % 16.5 %; Neutrophils # 3.7 K/mcL (1.6-8.9); Platelet Count 255 K/mcL (140-400); Red Blood Count 3.34 M/mcL (4.19-5.50); Red Cell Distribution Width 13.4 % (11.5-14.5); Segmented Neutrophils % 70.6 %; White Blood Count 5.3 K/mcL (4.3-11.1)
[2021-04-21 16:00] LABS: Hemoglobin 12.2 g/dL (12.9-16.9)
[2021-04-21] MEDS: Piperacillin/Tazobactam 3.375 GM in 0.9 % Sodium Chloride Mini Bag 100 ML IVPB SCH ×2 (16:08→23:48)
[2021-04-21 16:19] LABS: Alanine Aminotransferase 27 Units/L (7-52); Albumin/Globulin Ratio 1.1 (1.1-2.2); Alkaline Phosphatase 50 Units/L (34-104); Aspartate Amino Transferase 71 Units/L (13-39); BUN/Creatinine Ratio 8 (6-26); Bilirubin,Total 0.7 mg/dL (0.3-1.0); Blood Urea Nitrogen 5 mg/dL (6-20); Calcium 8.1 mg/dL (8.6-10.3); Carbon Dioxide 19 mEq/L (23-29); Chloride 99 mEq/L (98-107); Globulin 2.7 g/dL (2.4-3.5); Glucose 105 mg/dL (70-105); Osmolality,Calculated 262 (280-300); Potassium 3.8 mEq/L (3.5-5.1); Sodium 127 mEq/L (136-145); Total Protein 5.7 g/dL (6.4-8.9); eGFR For African Americans > 60 (> 60); eGFR For Non-African Americans > 60 (> 60)
[2021-04-21 17:48] LABS: Lipase 313 Units/L (11-82)
[2021-04-21] MEDS: 0.9 % Sodium Chloride 1,000 ML IVC SCH (17:54)
[2021-04-22 01:55] LABS: Hematocrit 37.2 % (37.5-50.1); Mean Corpuscular HGB Conc 34.9 g/dL (31.6-35.5); Mean Corpuscular Hemoglobin 36.6 pg (28.0-33.3); Mean Corpuscular Volume 104.8 fL (83.0-100.0); Mean Platelet Volume 10.1 fL (9.4-12.4); Platelet Count 304 K/mcL (140-400); Red Blood Count 3.55 M/mcL (4.19-5.50); Red Cell Distribution Width 13.2 % (11.5-14.5); White Blood Count 5.1 K/mcL (4.3-11.1)
[2021-04-22 02:21] LABS: BUN/Creatinine Ratio 11 (6-26); Blood Urea Nitrogen 6 mg/dL (6-20); Calcium 8.6 mg/dL (8.6-10.3); Carbon Dioxide 19 mEq/L (23-29); Chloride 102 mEq/L (98-107); Glucose 100 mg/dL (70-105); Osmolality,Calculated 270 (280-300); Potassium 4.2 mEq/L (3.5-5.1); Sodium 131 mEq/L (136-145); eGFR For African Americans > 60 (> 60); eGFR For Non-African Americans > 60 (> 60)
[2021-04-22] MEDS: Pantoprazole 40 MG VIAL IVP SCH ×2 (05:01→17:08)
[2021-04-22] MEDS: Insulin LISPRO 300 UNITS/3 ML VIAL SUBQ SCH ×4 (06:00→23:56)
[2021-04-22] MEDS: 0.9 % Sodium Chloride 1,000 ML IVC SCH ×4 (06:42→23:57)
[2021-04-22] MEDS: Famotidine 20 MG TABLET PO SCH ×2 (09:23→17:09)
[2021-04-22] MEDS: Piperacillin/Tazobactam 3.375 GM in 0.9 % Sodium Chloride Mini Bag 100 ML IVPB SCH ×3 (09:24→23:57)
[2021-04-22] MEDS: Vitamin B Complex/Vit C/Vit E 1 EACH TABLET PO SCH (09:25)
[2021-04-22] MEDS: Thiamine (B-1) 100 MG TABLET PO SCH ×3 (09:25→20:27)
[2021-04-22] MEDS: Folic Acid 1 MG TABLET PO SCH (09:25)
[2021-04-22] MEDS: Nicotine 21 MG PATCH.TD24 TD SCH (09:26)
[2021-04-22] MEDS: Ibuprofen 800 MG TABLET PO PRN (14:52)
[2021-04-22] MEDS: *HR* LORazepam 2 MG/ML VIAL IVP PRN (17:09)
[2021-04-23] MEDS: Ketorolac 15 MG/ML VIAL IVP PRN (02:39)
[2021-04-23 03:58] LABS: Hemoglobin 12.3 g/dL (12.9-16.9); Mean Corpuscular HGB Conc 35.1 g/dL (31.6-35.5); Mean Corpuscular Hemoglobin 37.3 pg (28.0-33.3); Mean Corpuscular Volume 106.1 fL (83.0-100.0); Mean Platelet Volume 9.8 fL (9.4-12.4); Platelet Count 382 K/mcL (140-400); Red Cell Distribution Width 13.5 % (11.5-14.5); White Blood Count 4.8 K/mcL (4.3-11.1)
[2021-04-23 04:17] LABS: BUN/Creatinine Ratio 9 (6-26); Blood Urea Nitrogen 5 mg/dL (6-20); Calcium 8.6 mg/dL (8.6-10.3); Carbon Dioxide 21 mEq/L (23-29); Chloride 107 mEq/L (98-107); Glucose 140 mg/dL (70-105); Osmolality,Calculated 280 (280-300); Potassium 4.3 mEq/L (3.5-5.1); Sodium 135 mEq/L (136-145); eGFR For African Americans > 60 (> 60); eGFR For Non-African Americans > 60 (> 60)
[2021-04-23] MEDS: Pantoprazole 40 MG VIAL IVP SCH (05:16)
[2021-04-23] MEDS: Insulin LISPRO 300 UNITS/3 ML VIAL SUBQ SCH ×3 (05:17→17:42)
[2021-04-23] MEDS: 0.9 % Sodium Chloride 1,000 ML IVC SCH ×2 (06:02→14:28)
[2021-04-23] MEDS: Piperacillin/Tazobactam 3.375 GM in 0.9 % Sodium Chloride Mini Bag 100 ML IVPB SCH (07:48)
[2021-04-23] MEDS: Nicotine 21 MG PATCH.TD24 TD SCH (07:48)
[2021-04-23] MEDS: Folic Acid 1 MG TABLET PO SCH (07:48)
[2021-04-23] MEDS: Thiamine (B-1) 100 MG TABLET PO SCH ×3 (07:48→21:01)
[2021-04-23] MEDS: Famotidine 20 MG TABLET PO SCH ×2 (07:48→15:05)
[2021-04-23] MEDS: Vitamin B Complex/Vit C/Vit E 1 EACH TABLET PO SCH (07:48)
[2021-04-24] MEDS: Insulin LISPRO 300 UNITS/3 ML VIAL SUBQ SCH ×4 (00:04→16:03)
[2021-04-24 01:03] LABS: Basophils # 0.1 K/mcL (0.0-0.2); Basophils % 0.9 %; Eosinophils # 0.2 K/mcL (0.0-0.6); Eosinophils % 3.5 %; Hematocrit 35.5 % (37.5-50.1); Hemoglobin 12.4 g/dL (12.9-16.9); Immature Granulocytes % 0.4 % (0-4); Lymphocytes # 2.2 K/mcL (0.6-4.6); Lymphocytes % 37.9 %; Mean Corpuscular HGB Conc 34.9 g/dL (31.6-35.5); Mean Corpuscular Hemoglobin 36.9 pg (28.0-33.3); Mean Corpuscular Volume 105.7 fL (83.0-100.0); Mean Platelet Volume 9.5 fL (9.4-12.4); Monocytes # 0.8 K/mcL (0.0-1.3); Monocytes % 14.6 %; Neutrophils # 2.4 K/mcL (1.6-8.9); Platelet Count 401 K/mcL (140-400); Red Blood Count 3.36 M/mcL (4.19-5.50); Red Cell Distribution Width 13.4 % (11.5-14.5); Segmented Neutrophils % 42.7 %; White Blood Count 5.7 K/mcL (4.3-11.1)
[2021-04-24 01:20] LABS: Alanine Aminotransferase 35 Units/L (7-52); Alkaline Phosphatase 45 Units/L (34-104); Aspartate Amino Transferase 54 Units/L (13-39); BUN/Creatinine Ratio 6 (6-26); Bilirubin,Total 0.4 mg/dL (0.3-1.0); Blood Urea Nitrogen 3 mg/dL (6-20); Calcium 8.8 mg/dL (8.6-10.3); Carbon Dioxide 22 mEq/L (23-29); Chloride 106 mEq/L (98-107); Globulin 2.9 g/dL (2.4-3.5); Glucose 92 mg/dL (70-105); Osmolality,Calculated 280 (280-300); Potassium 3.8 mEq/L (3.5-5.1); Sodium 137 mEq/L (136-145); Total Protein 5.9 g/dL (6.4-8.9); eGFR For African Americans > 60 (> 60); eGFR For Non-African Americans > 60 (> 60)
[2021-04-24] MEDS: Folic Acid 1 MG TABLET PO SCH (07:51)
[2021-04-24] MEDS: Famotidine 20 MG TABLET PO SCH ×2 (07:51→15:40)
[2021-04-24] MEDS: Nicotine 21 MG PATCH.TD24 TD SCH (07:52)
[2021-04-24] MEDS: Thiamine (B-1) 100 MG TABLET PO SCH ×3 (07:52→19:40)
[2021-04-24] MEDS: Vitamin B Complex/Vit C/Vit E 1 EACH TABLET PO SCH (07:52)
[2021-04-24] MEDS: Ketorolac 15 MG/ML VIAL IVP PRN (11:11)
[2021-04-25] MEDS: Insulin LISPRO 300 UNITS/3 ML VIAL SUBQ SCH ×4 (01:06→15:36)
[2021-04-25] MEDS: Ketorolac 15 MG/ML VIAL IVP PRN (04:49)
[2021-04-25] MEDS: Nicotine 21 MG PATCH.TD24 TD SCH (08:59)
[2021-04-25] MEDS: Thiamine (B-1) 100 MG TABLET PO SCH ×3 (08:59→19:49)
[2021-04-25] MEDS: Vitamin B Complex/Vit C/Vit E 1 EACH TABLET PO SCH (08:59)
[2021-04-25] MEDS: Famotidine 20 MG TABLET PO SCH ×2 (08:59→15:57)
[2021-04-25] MEDS: Folic Acid 1 MG TABLET PO SCH (08:59)
[2021-04-25] MEDS ORDERED: Isovue-370 500 ML BOTTLE IVP ONE (10:54)
[2021-04-25] MEDS ORDERED: 0.9 % Sodium Chloride 500 ML IVC SCH (11:00)
[2021-04-26] MEDS: Insulin LISPRO 300 UNITS/3 ML VIAL SUBQ SCH ×5 (01:22→20:51)
[2021-04-26 05:24] LABS: BUN/Creatinine Ratio 7 (6-26); Blood Urea Nitrogen 5 mg/dL (6-20); Calcium 10.1 mg/dL (8.6-10.3); Carbon Dioxide 24 mEq/L (23-29); Chloride 104 mEq/L (98-107); Glucose 107 mg/dL (70-105); Osmolality,Calculated 282 (280-300); Potassium 4.2 mEq/L (3.5-5.1); Sodium 137 mEq/L (136-145); eGFR For African Americans > 60 (> 60); eGFR For Non-African Americans > 60 (> 60)
[2021-04-26] MEDS: Famotidine 20 MG TABLET PO SCH (06:24)
[2021-04-26] MEDS: Folic Acid 1 MG TABLET PO SCH (08:57)
[2021-04-26] MEDS: Thiamine (B-1) 100 MG TABLET PO SCH ×3 (08:57→20:52)
[2021-04-26] MEDS: Vitamin B Complex/Vit C/Vit E 1 EACH TABLET PO SCH (08:57)
[2021-04-26] MEDS: Nicotine 21 MG PATCH.TD24 TD SCH (08:57)
[2021-04-26] MEDS: Ondansetron 4 MG/2 ML VIAL IVP PRN (09:04)
[2021-04-26] MEDS: Ketorolac 15 MG/ML VIAL IVP PRN (14:20)
[2021-04-26] MEDS ORDERED: *HR* Promethazine 25 MG/ML VIAL IM ONE (14:34)
[2021-04-27] MEDS: Insulin LISPRO 300 UNITS/3 ML VIAL SUBQ SCH ×4 (08:30→20:45)
[2021-04-27] MEDS: Thiamine (B-1) 100 MG TABLET PO SCH ×3 (08:38→20:45)
[2021-04-27] MEDS: Vitamin B Complex/Vit C/Vit E 1 EACH TABLET PO SCH (08:38)
[2021-04-27] MEDS: Folic Acid 1 MG TABLET PO SCH (08:39)
[2021-04-27] MEDS: Nicotine 21 MG PATCH.TD24 TD SCH (08:39)
[2021-04-28] MEDS ORDERED: Ketorolac 15 MG/ML VIAL IM ONE (03:10)
[2021-04-28] MEDS ORDERED: Ketorolac 15 MG/ML VIAL IVP ONE (03:45)
[2021-04-28] MEDS: Thiamine (B-1) 100 MG TABLET PO SCH ×3 (08:10→21:28)
[2021-04-28] MEDS: Vitamin B Complex/Vit C/Vit E 1 EACH TABLET PO SCH (08:10)
[2021-04-28] MEDS: Folic Acid 1 MG TABLET PO SCH (08:10)
[2021-04-28] MEDS: Nicotine 21 MG PATCH.TD24 TD SCH (08:10)
[2021-04-28] MEDS: Insulin LISPRO 300 UNITS/3 ML VIAL SUBQ SCH ×4 (13:19→21:26)
[2021-04-29] MEDS ORDERED: Ketorolac 15 MG/ML VIAL IVP ONE (07:42)
[2021-04-29] MEDS ORDERED: *HR* Promethazine 25 MG/ML VIAL IM ONE (07:42)
[2021-04-29] MEDS: Vitamin B Complex/Vit C/Vit E 1 EACH TABLET PO SCH (08:23)
[2021-04-29] MEDS: Thiamine (B-1) 100 MG TABLET PO SCH (08:23)
[2021-04-29] MEDS: Folic Acid 1 MG TABLET PO SCH (08:23)
[2021-04-29] MEDS: Insulin LISPRO 300 UNITS/3 ML VIAL SUBQ SCH (08:26)
[2021-04-29] MEDS: Nicotine 21 MG PATCH.TD24 TD SCH (08:36)
[2021-04-29 10:38] VITALS: BP 106/73
== END 2021-04-29 11:28 | disposition home or self-care (01) | DRG 241 ==
LOC: ICNU 13:56 → EMEROOARM 13:56 → OBSVTOIN 20:38 → SUATTDRO 20:38 → ICNU 21:25 → 2ANU 04-19 15:52 → 3ANU 04-25 20:59
PROVIDERS: ADMIT Internal Medicine; ATTEND Internal Medicine

== ENCOUNTER 2022-01-25 12:07 | Inpatient (IN) ==
[2022-01-25] MEDS ORDERED: Famotidine 20 MG/2 ML VIAL IVP ONE (12:18)
[2022-01-25] MEDS ORDERED: Isovue-370 500 ML BOTTLE IVP ONE (12:18)
[2022-01-25] MEDS ORDERED: Pantoprazole 40 MG VIAL IVP ONE (12:18)
[2022-01-25] MEDS ORDERED: Ondansetron 4 MG/2 ML VIAL IVP PRN (12:18)
[2022-01-25] MEDS ORDERED: Morphine Sulfate 2 MG/ML SYRINGE IVP ONE (12:18)
[2022-01-25 12:39] LABS: Basophils # 0.1 K/mcL (0.0-0.2); Basophils % 0.6 %; Eosinophils # 0.1 K/mcL (0.0-0.6); Eosinophils % 0.9 %; Hematocrit 53.4 % (37.5-50.1); Hemoglobin 18.9 g/dL (12.9-16.9); Immature Granulocytes % 0.4 % (0-4); Lymphocytes # 1.7 K/mcL (0.6-4.6); Lymphocytes % 20.4 %; Mean Corpuscular HGB Conc 35.4 g/dL (31.6-35.5); Mean Corpuscular Hemoglobin 35.5 pg (28.0-33.3); Mean Corpuscular Volume 100.2 fL (83.0-100.0); Mean Platelet Volume 9.7 fL (9.4-12.4); Monocytes # 0.7 K/mcL (0.0-1.3); Monocytes % 7.8 %; Neutrophils # 5.9 K/mcL (1.6-8.9); Platelet Count 180 K/mcL (140-400); Red Blood Count 5.33 M/mcL (4.19-5.50); Red Cell Distribution Width 13.8 % (11.5-14.5); Segmented Neutrophils % 69.9 %; White Blood Count 8.4 K/mcL (4.3-11.1)
[2022-01-25 12:48] LABS: Prothrombin Time 11.5 Seconds (9.4-12.1)
[2022-01-25 12:51] LABS: Activated Partial Thrombo Time 41.9 Seconds (26.0-36.0)
[2022-01-25 13:01] LABS: Alanine Aminotransferase 31 Units/L (7-52); Albumin/Globulin Ratio 1.1 (1.1-2.2); Alkaline Phosphatase 75 Units/L (34-104); Aspartate Amino Transferase 44 Units/L (13-39); BUN/Creatinine Ratio 7 (6-26); Bilirubin,Direct 0.1 mg/dL (0.0-0.2); Bilirubin,Indirect 0.6 mg/dL (0.0-1.0); Bilirubin,Total 0.7 mg/dL (0.3-1.0); Blood Urea Nitrogen 5 mg/dL (6-20); Calcium 9.4 mg/dL (8.6-10.3); Carbon Dioxide 22 mEq/L (23-29); Chloride 96 mEq/L (98-107); Globulin 3.7 g/dL (2.4-3.5); Glucose 126 mg/dL (70-105); Lipase 285 Units/L (11-82); Osmolality,Calculated 273 (280-300); Potassium 3.7 mEq/L (3.5-5.1); Sodium 132 mEq/L (136-145); Total Protein 7.7 g/dL (6.4-8.9); eGFR For African Americans > 60 (> 60); eGFR For Non-African Americans > 60 (> 60)
[2022-01-25 13:02] LABS: Troponin I < 0.03 ng/mL (< 0.04)
[2022-01-25] MEDS ORDERED: 0.9 % Sodium Chloride 1,000 ML IV ONE (13:57)
[2022-01-25] MEDS ORDERED: *HR* HYDROmorphone (PF) 1 MG/ML SYRINGE IVP ONE ×2 (13:57→21:16)
[2022-01-25] MEDS ORDERED: *HR* LORazepam 2 MG/ML VIAL IVP ONE (13:58)
[2022-01-25] MEDS ORDERED: MOM Conc 10 ML UD.LIQ PO PRN (14:23)
[2022-01-25] MEDS ORDERED: Naloxone 0.4 MG/ML INJ IVP PRN (14:23)
[2022-01-25 15:10] LABS: Bilirubin,Urine Negative (Negative); Blood,Urine Trace (Negative); Clarity,Urine Clear (Clear); Color,Urine Colorless (Yellow); Glucose,Urine (UA) Normal (Normal); Ketones,Urine Negative (Negative); Leukocyte Esterase,Urine Negative (Negative); Mucus,Urine Few per lpf (None-Few); Nitrite,Urine Negative (Negative); Protein,Urine 30 mg/dL (Neg-Trace); RBC,Urine 0-3 per hpf (0-3); Specific Gravity,Urine > 1.030 (1.010-1.025); Urobilinogen,Urine Normal (Normal); WBC,Urine 0-3 per hpf (0-3)
[2022-01-25] MEDS ORDERED: Ipratropium/Albuterol Neb 3 ML IH PRN (15:20)
[2022-01-25] MEDS ORDERED: *HR* LORazepam 2 MG/ML VIAL IVP PRN (15:21)
[2022-01-25] MEDS: 0.9 % Sodium Chloride 1,000 ML IVC SCH (15:38)
[2022-01-25] MEDS: Ondansetron 4 MG/2 ML VIAL IVP PRN (18:45)
[2022-01-25] MEDS ORDERED: *HR* Labetalol 20 MG/4 ML SYRINGE IVP ONE (22:54)
[2022-01-25] MEDS: *HR* LORazepam 2 MG/ML VIAL IVP PRN (23:05)
[2022-01-26] MEDS: 0.9 % Sodium Chloride 1,000 ML IVC SCH ×4 (03:17→21:34)
[2022-01-26 05:38] LABS: Basophils % 0.1 %; Eosinophils % 0.1 %; Hematocrit 50.9 % (37.5-50.1); Hemoglobin 17.8 g/dL (12.9-16.9); Immature Granulocytes % 0.3 % (0-4); Lymphocytes # 0.6 K/mcL (0.6-4.6); Lymphocytes % 8.6 %; Mean Corpuscular Hemoglobin 35.1 pg (28.0-33.3); Mean Corpuscular Volume 100.4 fL (83.0-100.0); Mean Platelet Volume 10.1 fL (9.4-12.4); Monocytes # 0.5 K/mcL (0.0-1.3); Monocytes % 7.7 %; Neutrophils # 5.7 K/mcL (1.6-8.9); Platelet Count 140 K/mcL (140-400); Red Blood Count 5.07 M/mcL (4.19-5.50); Red Cell Distribution Width 13.6 % (11.5-14.5); Segmented Neutrophils % 83.2 %; White Blood Count 6.9 K/mcL (4.3-11.1)
[2022-01-26 05:57] LABS: BUN/Creatinine Ratio 5 (6-26); Blood Urea Nitrogen 3 mg/dL (6-20); Calcium 8.7 mg/dL (8.6-10.3); Carbon Dioxide 25 mEq/L (23-29); Chloride 95 mEq/L (98-107); Glucose 132 mg/dL (70-105); Osmolality,Calculated 270 (280-300); Potassium 3.6 mEq/L (3.5-5.1); Sodium 131 mEq/L (136-145); eGFR For African Americans > 60 (> 60); eGFR For Non-African Americans > 60 (> 60)
[2022-01-26] MEDS: Folic Acid 1 MG TABLET PO SCH (08:07)
[2022-01-26] MEDS: Pantoprazole 40 MG VIAL IVP SCH (08:08)
[2022-01-26] MEDS: Vitamin B Complex/Vit C/Vit E 1 EACH TABLET PO SCH (08:08)
[2022-01-26] MEDS: Nicotine 14 MG PATCH.TD24 TD SCH (08:08)
[2022-01-26] MEDS: *HR* LORazepam 2 MG/ML VIAL IVP PRN ×3 (11:49→21:45)
[2022-01-26] MEDS ORDERED: Acetaminophen IV 1,000 MG/100 ML BAG IVPB ONE (23:43)
[2022-01-27 03:33] LABS: Basophils % 0.1 %; Hematocrit 46.7 % (37.5-50.1); Hemoglobin 16.4 g/dL (12.9-16.9); Immature Granulocytes % 0.6 % (0-4); Lymphocytes # 1.3 K/mcL (0.6-4.6); Lymphocytes % 11.1 %; Mean Corpuscular HGB Conc 35.1 g/dL (31.6-35.5); Mean Corpuscular Hemoglobin 35.3 pg (28.0-33.3); Mean Corpuscular Volume 100.4 fL (83.0-100.0); Mean Platelet Volume 10.8 fL (9.4-12.4); Monocytes # 1.2 K/mcL (0.0-1.3); Monocytes % 10.2 %; Neutrophils # 8.8 K/mcL (1.6-8.9); Platelet Count 122 K/mcL (140-400); Red Blood Count 4.65 M/mcL (4.19-5.50); Red Cell Distribution Width 13.9 % (11.5-14.5)
[2022-01-27 03:34] LABS: White Blood Count 11.3 K/mcL (4.3-11.1)
[2022-01-27 03:46] LABS: BUN/Creatinine Ratio 8 (6-26); Blood Urea Nitrogen 5 mg/dL (6-20); Calcium 8.3 mg/dL (8.6-10.3); Carbon Dioxide 27 mEq/L (23-29); Chloride 96 mEq/L (98-107); Glucose 100 mg/dL (70-105); Osmolality,Calculated 269 (280-300); Potassium 4.3 mEq/L (3.5-5.1); Sodium 131 mEq/L (136-145); eGFR For African Americans > 60 (> 60); eGFR For Non-African Americans > 60 (> 60)
[2022-01-27] MEDS: 0.9 % Sodium Chloride 1,000 ML IVC SCH ×4 (04:48→21:09)
[2022-01-27] MEDS: Vitamin B Complex/Vit C/Vit E 1 EACH TABLET PO SCH (09:17)
[2022-01-27] MEDS: Folic Acid 1 MG TABLET PO SCH (09:17)
[2022-01-27] MEDS: Nicotine 14 MG PATCH.TD24 TD SCH (09:17)
[2022-01-27] MEDS: *HR* LORazepam 2 MG/ML VIAL IVP PRN ×4 (09:18→21:55)
[2022-01-27] MEDS: Pantoprazole 40 MG VIAL IVP SCH (09:19)
[2022-01-27] MEDS ORDERED: Isovue-370 500 ML BOTTLE IVP ONE (10:47)
[2022-01-27 11:26] LABS: Albumin 3.2 g/dL (3.5-5.7); Albumin/Globulin Ratio 1.1 (1.1-2.2); Bilirubin,Direct 0.2 mg/dL (0.0-0.2); Bilirubin,Indirect 0.9 mg/dL (0.0-1.0); Bilirubin,Total 1.1 mg/dL (0.3-1.0); Globulin 2.8 g/dL (2.4-3.5)
[2022-01-27] MEDS: Ondansetron 4 MG/2 ML VIAL IVP PRN (11:41)
[2022-01-27] MEDS ORDERED: Acetaminophen IV 1,000 MG/100 ML BAG IVPB ONE (19:30)
[2022-01-27] MEDS: Dexmedetomidine HCl 400 MCG/100 ML MLS IVC SCH (22:53)
[2022-01-28 01:25] LABS: Alanine Aminotransferase 11 Units/L (7-52); Albumin 2.9 g/dL (3.5-5.7); Albumin/Globulin Ratio 1.2 (1.1-2.2); Alkaline Phosphatase 39 Units/L (34-104); Aspartate Amino Transferase 18 Units/L (13-39); BUN/Creatinine Ratio 11 (6-26); Bilirubin,Total 1.1 mg/dL (0.3-1.0); Blood Urea Nitrogen 6 mg/dL (6-20); Calcium 7.8 mg/dL (8.6-10.3); Carbon Dioxide 23 mEq/L (23-29); Chloride 102 mEq/L (98-107); Globulin 2.5 g/dL (2.4-3.5); Glucose 89 mg/dL (70-105); Osmolality,Calculated 273 (280-300); Potassium 3.1 mEq/L (3.5-5.1); Sodium 133 mEq/L (136-145); Total Protein 5.4 g/dL (6.4-8.9); eGFR For African Americans > 60 (> 60); eGFR For Non-African Americans > 60 (> 60)
[2022-01-28 01:43] LABS: Eosinophils % 0.3 %
[2022-01-28 01:45] LABS: Basophils % 0.1 %; Hematocrit 40.2 % (37.5-50.1); Hemoglobin 13.9 g/dL (12.9-16.9); Immature Granulocytes % 0.7 % (0-4); Immature Platelets 7.6 % (1.1-6.1); Lymphocytes # 1.5 K/mcL (0.6-4.6); Mean Corpuscular HGB Conc 34.6 g/dL (31.6-35.5); Mean Corpuscular Hemoglobin 34.9 pg (28.0-33.3); Monocytes % 11.3 %; Platelet Count 106 K/mcL (140-400); Red Blood Count 3.98 M/mcL (4.19-5.50); Red Cell Distribution Width 13.9 % (11.5-14.5); Segmented Neutrophils % 70.6 %; White Blood Count 8.7 K/mcL (4.3-11.1)
[2022-01-28] MEDS: 0.9 % Sodium Chloride 1,000 ML IVC SCH ×4 (01:53→20:53)
[2022-01-28 01:54] LABS: Neutrophils # 6.1 K/mcL (1.6-8.9)
[2022-01-28] MEDS: Dexmedetomidine HCl 400 MCG/100 ML MLS IVC SCH ×3 (05:07→16:57)
[2022-01-28] MEDS ORDERED: Ergocalciferol (VIT D2) 50,000 UNIT (1.25MG) CAP PO SCH (08:15)
[2022-01-28] MEDS ORDERED: Capsaicin 0.025% 60 GM TUBE TP PRN (08:15)
[2022-01-28] MEDS: Pantoprazole 40 MG VIAL IVP SCH (08:24)
[2022-01-28] MEDS: Gabapentin 300 MG CAPSULE PO SCH ×3 (08:24→20:53)
[2022-01-28] MEDS: Folic Acid 1 MG TABLET PO SCH (08:24)
[2022-01-28] MEDS: Vitamin B Complex/Vit C/Vit E 1 EACH TABLET PO SCH (08:25)
[2022-01-28] MEDS: Nicotine 14 MG PATCH.TD24 TD SCH (08:25)
[2022-01-28] MEDS: Fluticasone Propionate Nasal 50 MCG/SPRAY BOTTLE NS PRN (08:33)
[2022-01-28 09:05] LABS: Magnesium 1.1 mg/dL (1.6-2.6); Phosphorous 2.1 mg/dL (2.7-4.5); Potassium 3.7 mEq/L (3.5-5.1)
[2022-01-28] MEDS ORDERED: Potassium Phosphate 44 MEQ in 0.9 % Sodium Chloride 250 ML IVPB ONE (10:22)
[2022-01-28 13:31] LABS: BUN/Creatinine Ratio 9 (6-26); Blood Urea Nitrogen 5 mg/dL (6-20); Carbon Dioxide 24 mEq/L (23-29); Chloride 100 mEq/L (98-107); Glucose 92 mg/dL (70-105); Osmolality,Calculated 271 (280-300); Potassium 3.7 mEq/L (3.5-5.1); Sodium 132 mEq/L (136-145); eGFR For African Americans > 60 (> 60); eGFR For Non-African Americans > 60 (> 60)
[2022-01-28] MEDS: Ipratropium/Albuterol Neb 3 ML IH SCH ×2 (16:14→20:06)
[2022-01-28 20:55] LABS: Magnesium 1.7 mg/dL (1.6-2.6); Phosphorous 2.9 mg/dL (2.7-4.5)
[2022-01-29] MEDS: *HR* LORazepam 2 MG/ML VIAL IVP PRN ×2 (00:04→22:06)
[2022-01-29 01:32] LABS: Basophils % 0.3 %; Eosinophils # 0.1 K/mcL (0.0-0.6); Eosinophils % 0.9 %; Hematocrit 41.3 % (37.5-50.1); Hemoglobin 14.1 g/dL (12.9-16.9); Immature Granulocytes % 0.4 % (0-4); Lymphocytes # 1.3 K/mcL (0.6-4.6); Lymphocytes % 18.5 %; Magnesium 1.5 mg/dL (1.6-2.6); Mean Corpuscular HGB Conc 34.1 g/dL (31.6-35.5); Mean Corpuscular Hemoglobin 35.1 pg (28.0-33.3); Mean Corpuscular Volume 102.7 fL (83.0-100.0); Mean Platelet Volume 10.5 fL (9.4-12.4); Monocytes # 0.7 K/mcL (0.0-1.3); Monocytes % 10.9 %; Neutrophils # 4.7 K/mcL (1.6-8.9); Phosphorous 2.5 mg/dL (2.7-4.5); Platelet Count 120 K/mcL (140-400); Red Blood Count 4.02 M/mcL (4.19-5.50); Red Cell Distribution Width 13.8 % (11.5-14.5); White Blood Count 6.8 K/mcL (4.3-11.1)
[2022-01-29 01:34] LABS: Alanine Aminotransferase 10 Units/L (7-52); Albumin 2.8 g/dL (3.5-5.7); Albumin/Globulin Ratio 1.1 (1.1-2.2); Alkaline Phosphatase 50 Units/L (34-104); Aspartate Amino Transferase 20 Units/L (13-39); BUN/Creatinine Ratio 10 (6-26); Bilirubin,Total 0.9 mg/dL (0.3-1.0); Blood Urea Nitrogen 5 mg/dL (6-20); Calcium 7.7 mg/dL (8.6-10.3); Carbon Dioxide 17 mEq/L (23-29); Chloride 101 mEq/L (98-107); Globulin 2.6 g/dL (2.4-3.5); Glucose 67 mg/dL (70-105); Osmolality,Calculated 266 (280-300); Potassium 3.6 mEq/L (3.5-5.1); Sodium 130 mEq/L (136-145); Total Protein 5.4 g/dL (6.4-8.9); eGFR For African Americans > 60 (> 60); eGFR For Non-African Americans > 60 (> 60)
[2022-01-29] MEDS: 0.9 % Sodium Chloride 1,000 ML IVC SCH ×5 (01:56→22:01)
[2022-01-29] MEDS: Ipratropium/Albuterol Neb 3 ML IH SCH ×4 (04:02→20:43)
[2022-01-29] MEDS ORDERED: Dextrose 4 GM Chewable Tablets PO PRN ×2 (05:46)
[2022-01-29] MEDS ORDERED: *HR* Dextrose 50 % in Water (Syg) 50 ML SYRINGE IVP PRN (05:46)
[2022-01-29] MEDS ORDERED: D5% in Water 1,000 ML IVC PRN (05:46)
[2022-01-29] MEDS ORDERED: Potassium Phosphate 44 MEQ in 0.9 % Sodium Chloride 250 ML IVPB ONE (07:59)
[2022-01-29] MEDS: Folic Acid 1 MG TABLET PO SCH (08:54)
[2022-01-29] MEDS: Gabapentin 300 MG CAPSULE PO SCH ×3 (08:54→23:12)
[2022-01-29] MEDS: Vitamin B Complex/Vit C/Vit E 1 EACH TABLET PO SCH (08:54)
[2022-01-29] MEDS: Nicotine 14 MG PATCH.TD24 TD SCH (08:57)
[2022-01-29] MEDS: Pantoprazole 40 MG VIAL IVP SCH (09:00)
[2022-01-30] MEDS: *HR* LORazepam 2 MG/ML VIAL IVP PRN ×2 (03:09→22:49)
[2022-01-30] MEDS: 0.9 % Sodium Chloride 1,000 ML IVC SCH (03:10)
[2022-01-30] MEDS ORDERED: 0.9 % Sodium Chloride 1,000 ML IVC SCH (03:30)
[2022-01-30] MEDS: Ipratropium/Albuterol Neb 3 ML IH SCH ×4 (04:35→20:21)
[2022-01-30 05:32] LABS: Basophils % 0.3 %; Eosinophils # 0.1 K/mcL (0.0-0.6); Eosinophils % 0.8 %; Hematocrit 39.7 % (37.5-50.1); Hemoglobin 13.5 g/dL (12.9-16.9); Immature Granulocytes % 0.3 % (0-4); Lymphocytes # 1.1 K/mcL (0.6-4.6); Mean Corpuscular Hemoglobin 35.2 pg (28.0-33.3); Mean Corpuscular Volume 103.7 fL (83.0-100.0); Mean Platelet Volume 10.2 fL (9.4-12.4); Monocytes % 15.7 %; Neutrophils # 4.2 K/mcL (1.6-8.9); Platelet Count 153 K/mcL (140-400); Red Blood Count 3.83 M/mcL (4.19-5.50); Red Cell Distribution Width 13.6 % (11.5-14.5); Segmented Neutrophils % 65.9 %; White Blood Count 6.3 K/mcL (4.3-11.1)
[2022-01-30 05:50] LABS: Alanine Aminotransferase 19 Units/L (7-52); Albumin 2.9 g/dL (3.5-5.7); Albumin/Globulin Ratio 1.1 (1.1-2.2); Alkaline Phosphatase 59 Units/L (34-104); Aspartate Amino Transferase 44 Units/L (13-39); BUN/Creatinine Ratio 4 (6-26); Bilirubin,Total 1.1 mg/dL (0.3-1.0); Blood Urea Nitrogen 2 mg/dL (6-20); Calcium 8.3 mg/dL (8.6-10.3); Carbon Dioxide 22 mEq/L (23-29); Chloride 103 mEq/L (98-107); Globulin 2.6 g/dL (2.4-3.5); Glucose 97 mg/dL (70-105); Magnesium 1.6 mg/dL (1.6-2.6); Osmolality,Calculated 272 (280-300); Phosphorous 2.7 mg/dL (2.7-4.5); Potassium 3.5 mEq/L (3.5-5.1); Sodium 133 mEq/L (136-145); Total Protein 5.5 g/dL (6.4-8.9); eGFR For African Americans > 60 (> 60); eGFR For Non-African Americans > 60 (> 60)
[2022-01-30] MEDS ORDERED: Furosemide 20 MG/2 ML VIAL IVP ONE (07:24)
[2022-01-30] MEDS: Nicotine 14 MG PATCH.TD24 TD SCH (07:33)
[2022-01-30] MEDS: Folic Acid 1 MG TABLET PO SCH (07:34)
[2022-01-30] MEDS: Gabapentin 300 MG CAPSULE PO SCH ×3 (07:34→19:51)
[2022-01-30] MEDS: Vitamin B Complex/Vit C/Vit E 1 EACH TABLET PO SCH (07:34)
[2022-01-30] MEDS: Pantoprazole 40 MG VIAL IVP SCH (07:35)
[2022-01-31 02:16] LABS: Basophils % 0.3 %; Eosinophils # 0.1 K/mcL (0.0-0.6); Eosinophils % 2.2 %; Hematocrit 41.9 % (37.5-50.1); Hemoglobin 14.3 g/dL (12.9-16.9); Immature Granulocytes % 0.7 % (0-4); Lymphocytes # 1.5 K/mcL (0.6-4.6); Lymphocytes % 25.1 %; Mean Corpuscular HGB Conc 34.1 g/dL (31.6-35.5); Mean Corpuscular Volume 102.7 fL (83.0-100.0); Monocytes # 0.9 K/mcL (0.0-1.3); Monocytes % 14.6 %; Neutrophils # 3.4 K/mcL (1.6-8.9); Platelet Count 192 K/mcL (140-400); Red Blood Count 4.08 M/mcL (4.19-5.50); Red Cell Distribution Width 13.3 % (11.5-14.5); Segmented Neutrophils % 57.1 %
[2022-01-31 02:35] LABS: Magnesium 1.5 mg/dL (1.6-2.6); Phosphorous 3.2 mg/dL (2.7-4.5)
[2022-01-31] MEDS: Ipratropium/Albuterol Neb 3 ML IH SCH ×4 (04:00→20:13)
[2022-01-31] MEDS: Gabapentin 300 MG CAPSULE PO SCH ×3 (07:55→21:54)
[2022-01-31] MEDS: Pantoprazole 40 MG VIAL IVP SCH (07:55)
[2022-01-31] MEDS: Folic Acid 1 MG TABLET PO SCH (07:55)
[2022-01-31] MEDS: Vitamin B Complex/Vit C/Vit E 1 EACH TABLET PO SCH (07:55)
[2022-01-31] MEDS: Nicotine 14 MG PATCH.TD24 TD SCH (07:55)
[2022-01-31 09:03] LABS: Alanine Aminotransferase 23 Units/L (7-52); Albumin/Globulin Ratio 1.1 (1.1-2.2); Alkaline Phosphatase 56 Units/L (34-104); Aspartate Amino Transferase 32 Units/L (13-39); BUN/Creatinine Ratio 4 (6-26); Bilirubin,Total 0.9 mg/dL (0.3-1.0); Blood Urea Nitrogen 2 mg/dL (6-20); Calcium 8.7 mg/dL (8.6-10.3); Carbon Dioxide 23 mEq/L (23-29); Chloride 99 mEq/L (98-107); Globulin 2.8 g/dL (2.4-3.5); Glucose 112 mg/dL (70-105); Osmolality,Calculated 273 (280-300); Potassium 3.3 mEq/L (3.5-5.1); Sodium 133 mEq/L (136-145); Total Protein 5.8 g/dL (6.4-8.9); eGFR For African Americans > 60 (> 60); eGFR For Non-African Americans > 60 (> 60)
[2022-02-01 02:15] LABS: Basophils % 0.7 %; Eosinophils # 0.2 K/mcL (0.0-0.6); Hematocrit 40.5 % (37.5-50.1); Hemoglobin 14.2 g/dL (12.9-16.9); Immature Granulocytes % 0.7 % (0-4); Lymphocytes # 1.5 K/mcL (0.6-4.6); Lymphocytes % 28.3 %; Mean Corpuscular HGB Conc 35.1 g/dL (31.6-35.5); Mean Corpuscular Hemoglobin 36.2 pg (28.0-33.3); Mean Corpuscular Volume 103.3 fL (83.0-100.0); Mean Platelet Volume 10.2 fL (9.4-12.4); Monocytes # 0.7 K/mcL (0.0-1.3); Monocytes % 12.8 %; Neutrophils # 2.9 K/mcL (1.6-8.9); Platelet Count 255 K/mcL (140-400); Red Blood Count 3.92 M/mcL (4.19-5.50); Red Cell Distribution Width 13.5 % (11.5-14.5); Segmented Neutrophils % 54.5 %; White Blood Count 5.4 K/mcL (4.3-11.1)
[2022-02-01 02:35] LABS: Alanine Aminotransferase 22 Units/L (7-52); Albumin 2.9 g/dL (3.5-5.7); Albumin/Globulin Ratio 0.9 (1.1-2.2); Alkaline Phosphatase 53 Units/L (34-104); Aspartate Amino Transferase 29 Units/L (13-39); BUN/Creatinine Ratio 4 (6-26); Bilirubin,Total 0.7 mg/dL (0.3-1.0); Blood Urea Nitrogen 2 mg/dL (6-20); Calcium 8.8 mg/dL (8.6-10.3); Carbon Dioxide 23 mEq/L (23-29); Chloride 101 mEq/L (98-107); Globulin 3.2 g/dL (2.4-3.5); Glucose 133 mg/dL (70-105); Magnesium 1.7 mg/dL (1.6-2.6); Osmolality,Calculated 274 (280-300); Phosphorous 4.2 mg/dL (2.7-4.5); Potassium 3.6 mEq/L (3.5-5.1); Sodium 133 mEq/L (136-145); Total Protein 6.1 g/dL (6.4-8.9); eGFR For African Americans > 60 (> 60); eGFR For Non-African Americans > 60 (> 60)
[2022-02-01] MEDS: Ipratropium/Albuterol Neb 3 ML IH SCH ×4 (04:43→21:05)
[2022-02-01] MEDS: Nicotine 14 MG PATCH.TD24 TD SCH (09:14)
[2022-02-01] MEDS: Gabapentin 300 MG CAPSULE PO SCH ×3 (09:16→20:33)
[2022-02-01] MEDS: Vitamin B Complex/Vit C/Vit E 1 EACH TABLET PO SCH (09:16)
[2022-02-01] MEDS: Pantoprazole 40 MG VIAL IVP SCH (09:16)
[2022-02-01] MEDS: Folic Acid 1 MG TABLET PO SCH (09:16)
[2022-02-01] MEDS: Ondansetron 4 MG/2 ML VIAL IVP PRN (10:16)
[2022-02-01] MEDS: Fluticasone Propionate Nasal 50 MCG/SPRAY BOTTLE NS PRN (19:30)
[2022-02-02] MEDS: Ipratropium/Albuterol Neb 3 ML IH SCH ×2 (04:22→08:06)
[2022-02-02 05:40] LABS: Basophils % 0.6 %; Eosinophils # 0.2 K/mcL (0.0-0.6); Eosinophils % 2.5 %; Hematocrit 41.2 % (37.5-50.1); Hemoglobin 13.8 g/dL (12.9-16.9); Immature Granulocytes % 0.9 % (0-4); Lymphocytes # 2.2 K/mcL (0.6-4.6); Lymphocytes % 35.1 %; Mean Corpuscular HGB Conc 33.5 g/dL (31.6-35.5); Mean Corpuscular Hemoglobin 34.8 pg (28.0-33.3); Mean Platelet Volume 10.2 fL (9.4-12.4); Monocytes # 0.7 K/mcL (0.0-1.3); Monocytes % 10.9 %; Neutrophils # 3.2 K/mcL (1.6-8.9); Platelet Count 277 K/mcL (140-400); Red Blood Count 3.96 M/mcL (4.19-5.50); Red Cell Distribution Width 13.5 % (11.5-14.5); White Blood Count 6.4 K/mcL (4.3-11.1)
[2022-02-02 05:56] LABS: Alanine Aminotransferase 25 Units/L (7-52); Albumin/Globulin Ratio 0.8 (1.1-2.2); Alkaline Phosphatase 53 Units/L (34-104); Aspartate Amino Transferase 31 Units/L (13-39); BUN/Creatinine Ratio 5 (6-26); Bilirubin,Total 0.6 mg/dL (0.3-1.0); Blood Urea Nitrogen 4 mg/dL (6-20); Calcium 9.3 mg/dL (8.6-10.3); Carbon Dioxide 28 mEq/L (23-29); Chloride 96 mEq/L (98-107); Globulin 3.6 g/dL (2.4-3.5); Glucose 154 mg/dL (70-105); Magnesium 1.4 mg/dL (1.6-2.6); Osmolality,Calculated 274 (280-300); Phosphorous 4.7 mg/dL (2.7-4.5); Sodium 132 mEq/L (136-145); Total Protein 6.6 g/dL (6.4-8.9); eGFR For African Americans > 60 (> 60); eGFR For Non-African Americans > 60 (> 60)
[2022-02-02] MEDS: Nicotine 14 MG PATCH.TD24 TD SCH (08:08)
[2022-02-02] MEDS: Folic Acid 1 MG TABLET PO SCH (08:09)
[2022-02-02] MEDS: Vitamin B Complex/Vit C/Vit E 1 EACH TABLET PO SCH (08:09)
[2022-02-02] MEDS: Gabapentin 300 MG CAPSULE PO SCH (08:09)
[2022-02-02] MEDS ORDERED: Magnesium Oxide 400 MG TABLET PO SCH (09:00)
[2022-02-02 11:10] VITALS: BP 122/78; PULSE 90; TEMP 98; O2SAT 97
[2022-02-02] MEDS ORDERED: Ketorolac 30 MG/ML VIAL IVP ONE (12:49)
[2022-02-02] MEDS ORDERED: Sennosides/Docusate Sodium TABLET PO SCH (13:15)
== END 2022-02-02 14:15 | disposition home or self-care (01) | DRG 282 ==
LOC: 3BNU 12:07 → EMEROOARM 12:07 → SUATTDRO 14:19 → 3BNU 14:52 → SUATTDRO 01-27 14:33 → 2NNU 01-27 18:33 → 2ANU 02-01 12:56
PROVIDERS: ADMIT Family Medicine; ATTEND Internal Medicine

== ENCOUNTER 2022-04-06 16:43 | Inpatient (IN) ==
[2022-04-06 17:14] LABS: Basophils # 0.1 K/mcL (0.0-0.2); Basophils % 1.3 %; Eosinophils # 0.2 K/mcL (0.0-0.6); Eosinophils % 2.7 %; Hemoglobin 17.8 g/dL (12.9-16.9); Immature Granulocytes % 0.5 % (0-4); Lymphocytes # 3.9 K/mcL (0.6-4.6); Lymphocytes % 50.7 %; Mean Corpuscular HGB Conc 35.6 g/dL (31.6-35.5); Mean Corpuscular Volume 101.2 fL (83.0-100.0); Mean Platelet Volume 9.5 fL (9.4-12.4); Monocytes # 0.7 K/mcL (0.0-1.3); Monocytes % 8.6 %; Neutrophils # 2.8 K/mcL (1.6-8.9); Platelet Count 198 K/mcL (140-400); Red Blood Count 4.94 M/mcL (4.19-5.50); Red Cell Distribution Width 14.7 % (11.5-14.5); Segmented Neutrophils % 36.2 %; White Blood Count 7.8 K/mcL (4.3-11.1)
[2022-04-06 17:32] LABS: Alanine Aminotransferase 37 Units/L (7-52); Albumin 3.6 g/dL (3.5-5.7); Alkaline Phosphatase 74 Units/L (34-104); Aspartate Amino Transferase 60 Units/L (13-39); BUN/Creatinine Ratio 6 (6-26); Bilirubin,Direct 0.1 mg/dL (0.0-0.2); Bilirubin,Indirect 0.3 mg/dL (0.0-1.0); Bilirubin,Total 0.4 mg/dL (0.3-1.0); Blood Urea Nitrogen 3 mg/dL (6-20); Carbon Dioxide 21 mEq/L (23-29); Chloride 100 mEq/L (98-107); Ethanol 433 mg/dL (Less than 10); Globulin 3.5 g/dL (2.4-3.5); Glucose 158 mg/dL (70-105); Osmolality,Calculated 282 (280-300); Potassium 2.9 mEq/L (3.5-5.1); Sodium 136 mEq/L (136-145); Total Protein 7.1 g/dL (6.4-8.9); Troponin I < 0.03 ng/mL (< 0.04); eGFR For African Americans > 60 (> 60); eGFR For Non-African Americans > 60 (> 60)
[2022-04-06] MEDS ORDERED: Potassium Chloride Elixir 20 MEQ/15 ML UDC PO ONE (17:36)
[2022-04-06 17:53] LABS: Lipase 91 Units/L (11-82)
[2022-04-06 19:29] LABS: Bilirubin,Urine Negative (Negative); Blood,Urine Negative (Negative); Clarity,Urine Clear (Clear); Color,Urine Light-Yellow (Yellow); Glucose,Urine (UA) Normal (Normal); Ketones,Urine Negative (Negative); Leukocyte Esterase,Urine Negative (Negative); Nitrite,Urine Negative (Negative); PH,Urine 6.5 pH Units (5.0-8.0); Protein,Urine Negative (Neg-Trace); Specific Gravity,Urine 1.005 (1.010-1.025); Urobilinogen,Urine Normal (Normal)
[2022-04-06 19:36] LABS: Amphetamine Screen,Urine Negative ng/mL (Cutoff=1000); Barbiturate Screen,Urine Negative ng/mL (Cutoff=200); Benzodiazepines Screen,Urine Negative ng/mL (Cutoff=200); Cannabinoid Screen,Urine Negative ng/mL (Cutoff = 50); Cocaine Screen,Urine Negative ng/mL (Cutoff= 300); Opiate Screen,Urine Negative ng/mL (Cutoff=300); Phencyclidine Screen,Urine Negative ng/mL (Cutoff=25)
[2022-04-06] MEDS ORDERED: 0.9 % Sodium Chloride 1,000 ML IVC ONE (20:44)
[2022-04-06] MEDS ORDERED: *HR* FentaNYL (PF) 100 MCG/2 ML VIAL IVP STA (20:44)
[2022-04-06] MEDS ORDERED: Ondansetron 4 MG/2 ML VIAL IVP ONE (20:51)
[2022-04-06] MEDS ORDERED: Isovue-370 500 ML BOTTLE IVP ONE (21:30)
[2022-04-06] MEDS ORDERED: Melatonin 3 MG TABLET PO PRN (22:05)
[2022-04-06] MEDS ORDERED: Naloxone 0.4 MG/ML INJ IVP PRN (22:05)
[2022-04-06] MEDS ORDERED: *HR* LORazepam 2 MG/ML VIAL IVP PRN ×2 (22:08)
[2022-04-06] MEDS ORDERED: *HR* Heparin 5,000 UNIT/ML VIAL IVP PRN (23:21)
[2022-04-06] MEDS ORDERED: *HR* Heparin 5,000 UNIT/ML VIAL IVP ONE (23:21)
[2022-04-06] MEDS: 0.9 % Sodium Chloride 1,000 ML IVC SCH (23:55)
[2022-04-07] MEDS: Thiamine (B-1) 200 MG in 0.9 % Sodium Chloride 50 ML IVPB SCH ×2 (00:46→09:58)
[2022-04-07] MEDS: Heparin 25,000UNIT/250ML 1/2NS 25,000 UNIT/250 ML IV.SOLN IVC SCH ×2 (00:47→20:22)
[2022-04-07] MEDS: *HR* LORazepam 2 MG/ML VIAL IVP PRN ×4 (01:00→13:03)
[2022-04-07] MEDS: Nicotine 21 MG PATCH.TD24 TD SCH (01:00)
[2022-04-07] MEDS ORDERED: *HR* OxyCODONE Immed Rel 5 MG TABLET PO ONE (05:13)
[2022-04-07] MEDS: Ondansetron ODT 4 MG TAB.RAPDIS SL PRN (06:14)
[2022-04-07 07:14] LABS: Basophils # 0.1 K/mcL (0.0-0.2); Basophils % 0.7 %; Eosinophils # 0.1 K/mcL (0.0-0.6); Eosinophils % 1.9 %; Hematocrit 44.4 % (37.5-50.1); Hemoglobin 15.4 g/dL (12.9-16.9); Immature Granulocytes % 0.4 % (0-4); Lymphocytes # 2.6 K/mcL (0.6-4.6); Lymphocytes % 37.1 %; Mean Corpuscular HGB Conc 34.7 g/dL (31.6-35.5); Mean Corpuscular Hemoglobin 35.6 pg (28.0-33.3); Mean Corpuscular Volume 102.5 fL (83.0-100.0); Mean Platelet Volume 9.2 fL (9.4-12.4); Monocytes # 0.5 K/mcL (0.0-1.3); Monocytes % 6.7 %; Neutrophils # 3.7 K/mcL (1.6-8.9); Platelet Count 152 K/mcL (140-400); Red Blood Count 4.33 M/mcL (4.19-5.50); Red Cell Distribution Width 14.9 % (11.5-14.5); Segmented Neutrophils % 53.2 %; White Blood Count 6.9 K/mcL (4.3-11.1)
[2022-04-07 07:21] LABS: INR 1.1; Prothrombin Time 12.5 Seconds (9.4-12.1)
[2022-04-07 07:34] LABS: Alanine Aminotransferase 29 Units/L (7-52); Albumin 3.3 g/dL (3.5-5.7); Albumin/Globulin Ratio 1.2 (1.1-2.2); Alkaline Phosphatase 61 Units/L (34-104); Aspartate Amino Transferase 39 Units/L (13-39); BUN/Creatinine Ratio 8 (6-26); Bilirubin,Total 0.5 mg/dL (0.3-1.0); Blood Urea Nitrogen 4 mg/dL (6-20); Carbon Dioxide 26 mEq/L (23-29); Chloride 106 mEq/L (98-107); Globulin 2.7 g/dL (2.4-3.5); Glucose 103 mg/dL (70-105); Magnesium 1.1 mg/dL (1.6-2.6); Osmolality,Calculated 285 (280-300); Phosphorous 3.3 mg/dL (2.7-4.5); Potassium 3.5 mEq/L (3.5-5.1); Sodium 139 mEq/L (136-145); eGFR For African Americans > 60 (> 60); eGFR For Non-African Americans > 60 (> 60)
[2022-04-07] MEDS: Budesonide/Formoterol 160/4.5 1 PUFF INH IH SCH ×2 (07:49→20:39)
[2022-04-07] MEDS: 0.9 % Sodium Chloride 1,000 ML IVC SCH (07:52)
[2022-04-07] MEDS ORDERED: Fluticasone Propionate Nasal 50 MCG/SPRAY BOTTLE NS PRN (07:53)
[2022-04-07 07:55] LABS: Heparin anti-factor XA UFH 0.29 IU/mL (0.30-0.70)
[2022-04-07] MEDS: *HR* Heparin 5,000 UNIT/ML VIAL IVP PRN ×2 (08:12→20:03)
[2022-04-07] MEDS ORDERED: Pantoprazole 40 MG VIAL IVP SCH (09:00)
[2022-04-07] MEDS: Folic Acid 1 MG in 0.9 % Sodium Chloride 50 ML IVPB SCH (09:59)
[2022-04-07] MEDS: Cyanocobalamin (B-12) 1,000 MCG TABLET PO SCH ×2 (10:00→13:03)
[2022-04-07] MEDS ORDERED: Cyanocobalamin (B-12) 1,000 MCG/ML VIAL SQ ONE (11:16)
[2022-04-07] MEDS: Fluticasone Propionate Nasal 50 MCG/SPRAY BOTTLE NS SCH (13:04)
[2022-04-07] MEDS: Famotidine 20 MG TABLET PO SCH (21:59)
[2022-04-08] MEDS: Nicotine 21 MG PATCH.TD24 TD SCH (01:20)
[2022-04-08 02:24] LABS: Basophils % 0.7 %; Eosinophils # 0.1 K/mcL (0.0-0.6); Eosinophils % 1.7 %; Hematocrit 45.5 % (37.5-50.1); Hemoglobin 15.6 g/dL (12.9-16.9); Immature Granulocytes % 0.3 % (0-4); Lymphocytes # 2.3 K/mcL (0.6-4.6); Lymphocytes % 39.2 %; Mean Corpuscular HGB Conc 34.3 g/dL (31.6-35.5); Mean Corpuscular Hemoglobin 35.3 pg (28.0-33.3); Mean Corpuscular Volume 102.9 fL (83.0-100.0); Mean Platelet Volume 9.5 fL (9.4-12.4); Monocytes # 0.5 K/mcL (0.0-1.3); Monocytes % 9.4 %; Neutrophils # 2.8 K/mcL (1.6-8.9); Nucleated Red Blood Cells 0.3 /100 WBC (0); Platelet Count 143 K/mcL (140-400); Red Blood Count 4.42 M/mcL (4.19-5.50); Red Cell Distribution Width 14.3 % (11.5-14.5); Segmented Neutrophils % 48.7 %; White Blood Count 5.7 K/mcL (4.3-11.1)
[2022-04-08 02:44] LABS: Alanine Aminotransferase 22 Units/L (7-52); Albumin 3.2 g/dL (3.5-5.7); Alkaline Phosphatase 62 Units/L (34-104); Aspartate Amino Transferase 27 Units/L (13-39); BUN/Creatinine Ratio 8 (6-26); Bilirubin,Total 0.7 mg/dL (0.3-1.0); Blood Urea Nitrogen 4 mg/dL (6-20); Calcium 8.8 mg/dL (8.6-10.3); Carbon Dioxide 25 mEq/L (23-29); Chloride 102 mEq/L (98-107); Globulin 3.1 g/dL (2.4-3.5); Glucose 93 mg/dL (70-105); Magnesium 1.3 mg/dL (1.6-2.6); Osmolality,Calculated 277 (280-300); Phosphorous 2.9 mg/dL (2.7-4.5); Potassium 3.7 mEq/L (3.5-5.1); Sodium 135 mEq/L (136-145); Total Protein 6.3 g/dL (6.4-8.9); eGFR For African Americans > 60 (> 60); eGFR For Non-African Americans > 60 (> 60)
[2022-04-08] MEDS: Budesonide/Formoterol 160/4.5 1 PUFF INH IH SCH ×2 (07:50→19:36)
[2022-04-08] MEDS ORDERED: Cyanocobalamin (B-12) 1,000 MCG/ML VIAL SQ ONE (07:56)
[2022-04-08] MEDS: 0.9 % Sodium Chloride 1,000 ML IVC SCH ×2 (09:12→20:10)
[2022-04-08] MEDS: Thiamine (B-1) 200 MG in 0.9 % Sodium Chloride 50 ML IVPB SCH (09:12)
[2022-04-08] MEDS: Cyanocobalamin (B-12) 1,000 MCG TABLET PO SCH (09:17)
[2022-04-08] MEDS: Fluticasone Propionate Nasal 50 MCG/SPRAY BOTTLE NS SCH (11:54)
[2022-04-08] MEDS: Folic Acid 1 MG in 0.9 % Sodium Chloride 50 ML IVPB SCH (14:04)
[2022-04-08] MEDS: Heparin 25,000UNIT/250ML 1/2NS 25,000 UNIT/250 ML IV.SOLN IVC SCH (14:09)
[2022-04-08] MEDS: Famotidine 20 MG TABLET PO SCH (20:09)
[2022-04-09] MEDS: Nicotine 21 MG PATCH.TD24 TD SCH (00:30)
[2022-04-09 02:41] LABS: Basophils % 0.8 %; Eosinophils # 0.1 K/mcL (0.0-0.6); Hematocrit 43.6 % (37.5-50.1); Hemoglobin 14.9 g/dL (12.9-16.9); Immature Granulocytes % 0.3 % (0-4); Lymphocytes # 1.8 K/mcL (0.6-4.6); Lymphocytes % 44.6 %; Mean Corpuscular HGB Conc 34.2 g/dL (31.6-35.5); Mean Corpuscular Hemoglobin 35.1 pg (28.0-33.3); Mean Corpuscular Volume 102.6 fL (83.0-100.0); Mean Platelet Volume 10.1 fL (9.4-12.4); Monocytes # 0.4 K/mcL (0.0-1.3); Monocytes % 10.7 %; Neutrophils # 1.6 K/mcL (1.6-8.9); Platelet Count 140 K/mcL (140-400); Red Blood Count 4.25 M/mcL (4.19-5.50); Red Cell Distribution Width 14.3 % (11.5-14.5); Segmented Neutrophils % 41.6 %; White Blood Count 3.9 K/mcL (4.3-11.1)
[2022-04-09 02:48] LABS: Alanine Aminotransferase 17 Units/L (7-52); Albumin 3.2 g/dL (3.5-5.7); Albumin/Globulin Ratio 1.1 (1.1-2.2); Alkaline Phosphatase 62 Units/L (34-104); Aspartate Amino Transferase 23 Units/L (13-39); BUN/Creatinine Ratio 7 (6-26); Bilirubin,Total 0.5 mg/dL (0.3-1.0); Blood Urea Nitrogen 4 mg/dL (6-20); Calcium 8.6 mg/dL (8.6-10.3); Carbon Dioxide 25 mEq/L (23-29); Chloride 104 mEq/L (98-107); Globulin 2.8 g/dL (2.4-3.5); Glucose 100 mg/dL (70-105); Magnesium 1.7 mg/dL (1.6-2.6); Osmolality,Calculated 277 (280-300); Phosphorous 3.1 mg/dL (2.7-4.5); Potassium 3.8 mEq/L (3.5-5.1); Sodium 135 mEq/L (136-145); eGFR For African Americans > 60 (> 60); eGFR For Non-African Americans > 60 (> 60)
[2022-04-09] MEDS: 0.9 % Sodium Chloride 1,000 ML IVC SCH (04:54)
[2022-04-09] MEDS: Budesonide/Formoterol 160/4.5 1 PUFF INH IH SCH (07:19)
[2022-04-09] MEDS: Folic Acid 1 MG in 0.9 % Sodium Chloride 50 ML IVPB SCH (09:23)
[2022-04-09] MEDS: Cyanocobalamin (B-12) 1,000 MCG TABLET PO SCH (09:24)
[2022-04-09] MEDS: Fluticasone Propionate Nasal 50 MCG/SPRAY BOTTLE NS SCH (09:25)
[2022-04-09 16:15] VITALS: BP 133/84; PULSE 72; TEMP 98.3; O2SAT 93
[2022-04-09] MEDS: Ondansetron ODT 4 MG TAB.RAPDIS SL PRN (18:17)
[2022-04-10] MEDS ORDERED: Folic Acid 1 MG TABLET PO SCH (09:00)
== END 2022-04-09 18:50 | disposition home or self-care (01) | DRG 282 ==
LOC: 3ANU 16:43 → EMEROOARM 16:43 → SUATTDRO 22:05 → 3ANU 22:10
PROVIDERS: ADMIT Internal Medicine; ATTEND Internal Medicine